=== PATIENT | female | born 1965 | race Caucasian/White ===

== ENCOUNTER 2017-11-11 10:30 | Outpatient (RCR) | payer OTHER, SELFPAY ==
--- NOTE | 2017-11-03 14:08 | PT.OIE ---
Current Diagnoses Pain in right shoulder (10/29/17) Past Medical History (Last Updated 10/23/17 @ 20:32 by Jo Ann Ross) Depression (Chronic ~2000) Osteoarthritis (Chronic ~2008) Fractures (Resolved ~1972) Shingles (Resolved ~2010) Past Surgical History (Last Updated 10/23/17 @ 20:32 by Jo Ann Ross) Anesthesia (Resolved) History of thumb surgery (Resolved ~07/2013) Provider Visit Care Team Role Provider Type LAUREN Moreno Attending Provider Advanced Beauty Culturist Apprentice Family Provider Primary Care Provider Specialty: Medical Address: [address] [place] [address], [facility] Email: Physical Therapy Initial Evaluation PT-OP-A Visit Information Start: 10/29/17 17:33 Freq: Status: Active Protocol: Document 10/29/17 17:34 EA (Rec: 10/29/17 17:36 EA [id number]) Out-Patient Physical Therapy Visit Information Visit Information Visit Type Initial Evaluation Visit Start Time 16:00 Visit Stop Time 16:45 Visit Number 1 PT-OP-B Current Condition Start: 10/29/17 17:33 Freq: Status: Active Protocol: Document 10/29/17 17:34 EA (Rec: 11/02/17 07:30 EA [id number]) Current Condition History of Current Condition Onset Date 3 year ago Current Complaints Difficulty with overhead and lifting due to R shoulder weakness History of Current Condition Present condition of right shoulder weakness started 3 years ago with no known reason ; no signifcant medical history recalled except with right neck pain which was treated with formal rehab years ago. Pt reports months ago which she noted difficulty with fitness exercises due to R shoulder weakness with pain ; states dull pain accompanied with tightness. No diagnositic imaging performed recently. Prior Treatments and Tests None at this time Future Testing and Treatments Planned NOne at this time Treatment Goals Patient/Caregiver Goals Patient want to be able to particiocipate in TRX and other free weight fitness exercises with out limitation. 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 Personal Factors Other Personal Factors That May Effect Chronicity of the condition Therapy/Recovery PT-OP-C Subjective Start: 10/29/17 17:33 Freq: Status: Active Protocol: Document 10/29/17 17:30 EA (Rec: 11/03/17 13:55 EA [id number]) OP-PT Subjective Patient Comments Patient Comments Pt c/o shoulder elevation difficulty due to weakness and diffuse pain rated 4/10 at post right shoulder; states unable to participate effectively with all fitnee resistance exercises. Patient Reported Progress Same Patient Questionnaires Quick Dash- Upper Extremity Quick Dash UE Score 34 Quick Dash UE Impairment 20 to 39% Impaired (Score 20- 39) PT-OP-E Functional Tests Start: 10/29/17 17:33 Freq: Status: Active Protocol: Document 10/29/17 08:34 EA (Rec: 11/02/17 08:24 EA [id number]) Functional Tests Apley's Scratch Test Action 1: The subject is instructed to touch the opposite shoulder with his/her hand. This motion checks Glenohumeral adduction, internal rotation , horizontal adduction and scapular protraction Action 2: The subject is instructed to place his/her arm overhead and reach behind the neck to touch his/her upper back. This motion checks Glenohumeral abduction, external rotation and scapular upward rotation and elevation. Action 3: The subject puts his/her hand on the lower back and reaches upward as far as possible. This motion checks glenohumeral adduction, internal rotation and scapular retraction with downward rotation Action 2- Left T1 Action 2- Right T3 Action 3- Left T8 Action 3- Right T1 PT-OP-F Manual Assessment Start: 10/29/17 17:33 Freq: Status: Active Protocol: Document 10/29/17 17:34 EA (Rec: 11/02/17 09:00 EA [id number]) Manual Assessments Soft Tissue Assessment Soft Tissue Mobility Assessment grade 2 tenderness gracie right upper and middle traps, scapular borders. Joint Mobility Assessment Joint Mobility Assessment crepitus noted. PT-OP-H Neuro Start: 10/29/17 17:33 Freq: Status: Active Protocol: Document 10/29/17 17:34 EA (Rec: 11/02/17 09:00 EA [id number]) Sensation Evaluation Gross Sensation Sensation Description Pain Dermatome Impairments C3 C4 Comments Summary Comments Possible with suprascapular nerve pain distibution and weakness. Deep Tendon Reflex & Clonus Assessment Deep Tendon Reflex Right Tricep Deep Tendon Reflex 2+ Normal PT-OP-J Posture/Palpation/Skin Start: 10/29/17 17:33 Freq: Status: Active Protocol: Document 10/29/17 17:34 EA (Rec: 11/02/17 09:00 EA [id number]) Posture Evaluation Position Standing Evaluation View Posterior Shoulder Posture (R) Forward Scapula Posture (R) Retracted PT-OP-K Range of Motion Start: 10/29/17 17:33 Freq: Status: Active Protocol: Document 10/29/17 17:34 EA (Rec: 11/02/17 10:22 EA [id number]) Cervical Spine Range of Motion Cervical Spine Active ROM Limitations Soft Tissue Tightness Comments Tightness to both traps, LS. Shoulder Goniometric Range of Motion Shoulder Measured in Degrees Right Active External Rotation at 90 degrees 85 Abduction Internal Rotation 65 Left Shoulder ROM WFL Yes PT-OP-L Special Tests Start: 10/29/17 17:33 Freq: Status: Active Protocol: Document 10/29/17 17:35 EA (Rec: 11/03/17 08:18 EA [id number]) Special Tests Cervical Spine Special Tests Upper Limb Tension Test Test Results negative Shoulder Depression Test Results negative Shoulder Special Tests AC Joint Compression Test Results negative Speed's Biceps Test Results negative Elevation Impingement Test Results negative Neer Impingement Test Results negative Empty Can Test Results negative Belly Press Test Results negative Vascular Special Tests Jose Maneuver Test Results negative Estephania Test Test Results negative Other Special Tests Special Tests Suprascapular nerve provocation: Positive PT-OP-M Strength Start: 10/29/17 17:33 Freq: Status: Active Protocol: Document 10/29/17 17:35 EA (Rec: 11/03/17 08:18 EA [id number]) Shoulder Strength Shoulder Manual Muscle Testing Left Flexion 5 Normal Extension 5 Normal Abduction (C5) 5 Normal Adduction 5 Normal External Rotation 5 Normal Internal Rotation 5 Normal Horizontal Abduction 5 Normal Horizontal Adduction 5 Normal Right Flexion 4- Good- Extension 5 Normal Abduction (C5) 4- Good- Adduction 5 Normal External Rotation 3+ Fair+ Internal Rotation 4 Good Horizontal Abduction 4- Good- Horizontal Adduction 5 Normal Elbow/Forearm Strength Elbow and Forearm Manual Muscle Testing Right Flexion (C6) 5 Normal Extension (C7) 5 Normal Pronation 5 Normal Supination 5 Normal PT-OP-Q Treatments Start: 10/29/17 17:33 Freq: Status: Active Protocol: Document 10/29/17 17:35 EA (Rec: 11/03/17 08:18 EA [id number]) Manual Therapy Treatment Soft Tissue Mobilization 1 Body Location Right scapular borders, R traps Mobilization Type Myofascial Release Strumming Sustained Pressure Trigger Point Release Intensity/Depth Moderate Body Position Prone PT-OP-R Modalities Start: 10/29/17 17:33 Freq: Status: Active Protocol: Document 10/29/17 17:35 EA (Rec: 11/03/17 08:18 EA [id number]) Electric Stimulation Electric Stimulation Interferential Current (IFC) Body Location SS/IS muscles Duration (Minutes) 15 Combined With Heat/Cold Hot Pack PT-OP-T Assessment and Plan Start: 10/29/17 17:33 Freq: Status: Active Protocol: Document 10/29/17 17:35 EA (Rec: 11/03/17 08:18 EA [id number]) Physical Therapy Assessment Rehab Potential Rehabilitation Potential Good Evaluation Complexity Number of Personal Factors/Comorbidities 1-2 Number of Body Systems Impaired 1-2 Clinical Presentation at Evaluation Evolving Impairments Impairments Pain Posture ROM Strength Other Concerns Barriers to Rehabilitation Chronicity of the condition Goals Four Impairment Quick Dash score of 36 Packing Machine Tender Goal (LTG) Patient will have Quick Dash Score of 16 LTG Duration 4 wks Two Impairment Decreased shoulder Abd/Flexion /ER MM strength Residential Goal (LTG) Pt will increase shoulder strength by 1/2 grade to improve shoulder functional elevation. LTG Duration 4 wks One Impairment Grade 2 tenderness over right scapular region and borders Residential Goal (LTG) Patient will exhibit no tenderness over right shoulder borders and regin to decrease pain during shoulder elevation. LTG Duration 4 wks Assessment Summary Assessment Pleasant 51 y/o F patient demonstrates difficulty with shoulder elevation due to weakness with minimal pain. Special tests reveals negative with rotator cuff tendinitis or injury; cervical neurological tests reveal no irritation to specific nerve. Suprascapular nerve provocation test reveals positive. In my professional opinion, patient may probably suffering from suprascapular nerve compression due to tenderness with tightness of supraspinatus and infraspinatus nerve. Due to the compression patient weakness is evident during shoulder mobility. Pt would benefit with skilled PT to address this issue. Physical Therapy Plan Frequency and Duration Frequency of Treatment 2x/Week Plan of Care Start Date 10/29/17 Plan of Care End Date 12/24/17 Therapeutic Interventions Therapeutic Interventions Home Exercise Program Manual Therapy Patient/Caregiver Education Self-Care/Home Management Soft Tissue Mobilization Therapeutic Exercises Modalities Cold Pack/Ice Massage Electric Stimulation Hot Packs Next Visit Focus/Plan Next Note Type Treatment Note Next Visit Plan 1. Decrease scapular tightness 2. Decrease scapular and traps tenderness 3. Increase strength 4. HEP
--- NOTE | 2017-11-03 14:08 | PT.OPPOC ---
Current Diagnoses Pain in right shoulder (10/29/17) Provider Visit Care Team Role Provider Type LAUREN Moreno Attending Provider Advanced Rotary Rig Engine Operator Family Provider Primary Care Provider Specialty: Medical Address: [address] [place] [address], [id number] Email: Plan Of Care PT-OP-T Assessment and Plan Start: 10/29/17 17:33 Freq: Status: Active Protocol: Document 10/29/17 17:35 EA (Rec: 11/03/17 08:18 EA [id number]) Physical Therapy Assessment Rehab Potential Rehabilitation Potential Good Evaluation Complexity Number of Personal Factors/Comorbidities 1-2 Number of Body Systems Impaired 1-2 Clinical Presentation at Evaluation Evolving Impairments Impairments Pain Posture ROM Strength Other Concerns Barriers to Rehabilitation Chronicity of the condition Goals Four Impairment Quick Dash score of 36 Machine Guide Base Winder Goal (LTG) Patient will have Quick Dash Score of 16 LTG Duration 4 wks Two Impairment Decreased shoulder Abd/Flexion /ER MM strength Custodial Goal (LTG) Pt will increase shoulder strength by 1/2 grade to improve shoulder functional elevation. LTG Duration 4 wks One Impairment Grade 2 tenderness over right scapular region and borders Machine Guide Base Winder Goal (LTG) Patient will exhibit no tenderness over right shoulder borders and regin to decrease pain during shoulder elevation. LTG Duration 4 wks Assessment Summary Assessment Pleasant 51 y/o F patient demonstrates difficulty with shoulder elevation due to weakness with minimal pain. Special tests reveals negative with rotator cuff tendinits or injury; cervical neurological tests reveal no irritation to specific nerve. Suprascapular nerve provocation test reveals positive. In my professional opinion, patient may probably suffering from suprascapular nerve compression due to tenderness with tightness of supraspinatus and infraspinatus nerve. Due to the compression patient weakness is evident during shoulder mobility. Pt would benefit with skilled PT to address this issue. Physical Therapy Plan Frequency and Duration Frequency of Treatment 2x/Week Plan of Care Start Date 10/29/17 Plan of Care End Date 12/24/17 Therapeutic Interventions Therapeutic Interventions Home Exercise Program Manual Therapy Patient/Caregiver Education Self-Care/Home Management Soft Tissue Mobilization Therapeutic Exercises Modalities Cold Pack/Ice Massage Electric Stimulation Hot Packs Next Visit Focus/Plan Next Note Type Treatment Note Next Visit Plan 1. Decrease scapular tightness 2. Decrease scapular and traps tenderness 3. Increase strength 4. HEP Plan of Care Dates Plan of Care Start Date 10/29/17 Plan of Care End Date 12/24/17 Please Sign and Return: I have reviewed this Plan of Care and certify that the skilled therapy services above are required to meet the patient?s needs. Physician Signature Date Printed Name and Credentials Clinical Instructor Signature Printed Name and Credentials
--- NOTE | 2017-11-03 17:14 | PT.OTN ---
Current Diagnoses Pain in right shoulder (11/03/17) Physical Therapy Treatment Note PT-OP-A Visit Information Start: 10/29/17 17:33 Freq: Status: Active Protocol: Document 11/03/17 17:04 EA (Rec: 11/03/17 17:13 EA [id number]) Out-Patient Physical Therapy Visit Information Visit Information Visit Type Treatment Note Visit Start Time 16:00 Visit Stop Time 16:53 Total Visit Minutes 53 Visit Number 2 PT-OP-B Current Condition Start: 10/29/17 17:33 Freq: Status: Active Protocol: Document 10/29/17 17:34 EA (Rec: 11/02/17 07:30 EA [id number]) Current Condition History of Current Condition Onset Date 3 year ago Current Complaints Difficulty with overhead and lifting due to R shoulder weakness History of Current Condition Present condition of right shoulder weakness started 3 years ago with no known reason ; no signifcant medical history recalled except with right neck pain which was treated with formal rehab years ago. Pt reports months ago which she noted difficulty with fitness exercises due to R shoulder weakness with pain ; states dull pain accompanied with tightness. No diagnositic imaging performed recently. Prior Treatments and Tests None at this time Future Testing and Treatments Planned NOne at this time Treatment Goals Patient/Caregiver Goals Patient want to be able to particiocipate in TRX and other free weight fitness exercises with out limitation. 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 Personal Factors Other Personal Factors That May Effect Chronicity of the condition Therapy/Recovery PT-OP-C Subjective Start: 10/29/17 17:33 Freq: Status: Active Protocol: Document 11/03/17 17:04 EA (Rec: 11/03/17 17:13 EA [id number]) OP-PT Subjective Patient Comments Patient Comments Patient reports right shoulder is quite sore today. PT-OP-E Functional Tests Start: 10/29/17 17:33 Freq: Status: Active Protocol: Document 10/29/17 08:34 EA (Rec: 11/02/17 08:24 EA [id number]) Functional Tests Apley's Scratch Test Action 1: The subject is instructed to touch the opposite shoulder with his/her hand. This motion checks Glenohumeral adduction, internal rotation , horizontal adduction and scapular protraction Action 2: The subject is instructed to place his/her arm overhead and reach behind the neck to touch his/her upper back. This motion checks Glenohumeral abduction, external rotation and scapular upward rotation and elevation. Action 3: The subject puts his/her hand on the lower back and reaches upward as far as possible. This motion checks glenohumeral adduction, internal rotation and scapular retraction with downward rotation Action 2- Left T1 Action 2- Right T3 Action 3- Left T8 Action 3- Right T1 PT-OP-F Manual Assessment Start: 10/29/17 17:33 Freq: Status: Active Protocol: Document 10/29/17 17:34 EA (Rec: 11/02/17 09:00 EA [id number]) Manual Assessments Soft Tissue Assessment Soft Tissue Mobility Assessment grade 2 tenderness gracie right upper and middle traps, scapular borders. Joint Mobility Assessment Joint Mobility Assessment crepitus noted. PT-OP-H Neuro Start: 10/29/17 17:33 Freq: Status: Active Protocol: Document 10/29/17 17:34 EA (Rec: 11/02/17 09:00 EA [id number]) Sensation Evaluation Gross Sensation Sensation Description Pain Dermatome Impairments C3 C4 Comments Summary Comments Possible with suprascapular nerve pain distibution and weakness. Deep Tendon Reflex & Clonus Assessment Deep Tendon Reflex Right Tricep Deep Tendon Reflex 2+ Normal PT-OP-J Posture/Palpation/Skin Start: 10/29/17 17:33 Freq: Status: Active Protocol: Document 10/29/17 17:34 EA (Rec: 11/02/17 09:00 EA [id number]) Posture Evaluation Position Standing Evaluation View Posterior Shoulder Posture (R) Forward Scapula Posture (R) Retracted PT-OP-K Range of Motion Start: 10/29/17 17:33 Freq: Status: Active Protocol: Document 10/29/17 17:34 EA (Rec: 11/02/17 10:22 EA [id number]) Cervical Spine Range of Motion Cervical Spine Active ROM Limitations Soft Tissue Tightness Comments Tightness to both traps, LS. Shoulder Goniometric Range of Motion Shoulder Measured in Degrees Right Active External Rotation at 90 degrees 85 Abduction Internal Rotation 65 Left Shoulder ROM WFL Yes PT-OP-L Special Tests Start: 10/29/17 17:33 Freq: Status: Active Protocol: Document 10/29/17 17:35 EA (Rec: 11/03/17 08:18 EA [id number]) Special Tests Cervical Spine Special Tests Upper Limb Tension Test Test Results negative Shoulder Depression Test Results negative Shoulder Special Tests AC Joint Compression Test Results negative Speed's Biceps Test Results negative Elevation Impingement Test Results negative Neer Impingement Test Results negative Empty Can Test Results negative Belly Press Test Results negative Vascular Special Tests [place] [employer] Maneuver Test Results negative Estephania Test Test Results negative Other Special Tests Special Tests Suprascapular nerve provocation: Positive PT-OP-M Strength Start: 10/29/17 17:33 Freq: Status: Active Protocol: Document 10/29/17 17:35 EA (Rec: 11/03/17 08:18 EA [id number]) Shoulder Strength Shoulder Manual Muscle Testing Left Flexion 5 Normal Extension 5 Normal Abduction (C5) 5 Normal Adduction 5 Normal External Rotation 5 Normal Internal Rotation 5 Normal Horizontal Abduction 5 Normal Horizontal Adduction 5 Normal Right Flexion 4- Good- Extension 5 Normal Abduction (C5) 4- Good- Adduction 5 Normal External Rotation 3+ Fair+ Internal Rotation 4 Good Horizontal Abduction 4- Good- Horizontal Adduction 5 Normal Elbow/Forearm Strength Elbow and Forearm Manual Muscle Testing Right Flexion (C6) 5 Normal Extension (C7) 5 Normal Pronation 5 Normal Supination 5 Normal PT-OP-Q Treatments Start: 10/29/17 17:33 Freq: Status: Active Protocol: Document 11/03/17 17:04 EA (Rec: 11/03/17 17:13 EA [id number]) Manual Therapy Treatment Soft Tissue Mobilization 1 Body Location Right SS/IF ms and tendon Mobilization Type Cross-Friction Myofascial Release Sustained Pressure Intensity/Depth Moderate Comments prone and supine PT-OP-R Modalities Start: 10/29/17 17:33 Freq: Status: Active Protocol: Document 11/03/17 17:04 EA (Rec: 11/03/17 17:13 EA [id number]) Electric Stimulation Electric Stimulation Interferential Current (IFC) Body Location right SS/IF/lat deltoid Duration (Minutes) 15 Combined With Heat/Cold Hot Pack Hot Pack/Cold Pack Treatment Hot Pack Location ant and post right shoulder Patient Position Supine Patient Tolerance Good Ultrasound Therapy Treatment Right Anterior Shoulder Treatment Duration (minutes) 8 Coupling Medium Ultrasound Gel Applicator Size (cm2) 5 Mode Setting Continuous Comments US to right supraspinatus/ infra spinatus muscle and tendon: prone and supine PT-OP-T Assessment and Plan Start: 10/29/17 17:33 Freq: Status: Active Protocol: Document 11/03/17 17:04 EA (Rec: 11/03/17 17:13 EA [id number]) Physical Therapy Assessment Assessment Summary Assessment Patient is exhibiting SS/IF tendinitis at this time which can be add up from the previous diagnosis of suprascapular nerve impingment . Physical Therapy Plan Next Visit Focus/Plan Next Note Type Treatment Note Next Visit Plan Cont with current plan. To begin shoulder exercises next meeting.
--- NOTE | 2017-11-06 11:12 | PT.OTN ---
Current Diagnoses Pain in right shoulder (11/06/17) Physical Therapy Treatment Note PT-OP-A Visit Information Start: 10/29/17 17:33 Freq: Status: Active Protocol: Document 11/06/17 10:30 DCW (Rec: 11/06/17 11:12 DCW [id number]) Out-Patient Physical Therapy Visit Information Visit Information Visit Type Treatment Note Visit Start Time 10:30 Visit Stop Time 11:25 Total Visit Minutes 55 Visit Number 3 Number of CHIEF LOAD DISPATCHER Visits 0 Evaluation Information Evaluation Date 10/29/17 PT-OP-B Current Condition Start: 10/29/17 17:33 Freq: Status: Active Protocol: Document 10/29/17 17:34 EA (Rec: 11/02/17 07:30 EA [id number]) Current Condition History of Current Condition Onset Date 3 year ago Current Complaints Difficulty with overhead and lifting due to R shoulder weakness History of Current Condition Present condition of right shoulder weakness started 3 years ago with no known reason ; no signifcant medical history recalled except with right neck pain which was treated with formal rehab years ago. Pt reports months ago which she noted difficulty with fitness exercises due to R shoulder weakness with pain ; states dull pain accompanied with tightness. No diagnositic imaging performed recently. Prior Treatments and Tests None at this time Future Testing and Treatments Planned NOne at this time Treatment Goals Patient/Caregiver Goals Patient want to be able to particiocipate in TRX and other free weight fitness exercises with out limitation. 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 Personal Factors Other Personal Factors That May Effect Chronicity of the condition Therapy/Recovery PT-OP-C Subjective Start: 10/29/17 17:33 Freq: Status: Active Protocol: Document 11/06/17 10:30 DCW (Rec: 11/06/17 11:12 DCW [id number]) OP-PT Subjective Patient Comments Patient Comments Pt reports she is a little sore today after going to the gym yesterday, alhough she didn't do any arm workouts. PT-OP-E Functional Tests Start: 10/29/17 17:33 Freq: Status: Active Protocol: Document 10/29/17 08:34 EA (Rec: 11/02/17 08:24 EA [id number]) Functional Tests Apley's Scratch Test Action 1: The subject is instructed to touch the opposite shoulder with his/her hand. This motion checks Glenohumeral adduction, internal rotation , horizontal adduction and scapular protraction Action 2: The subject is instructed to place his/her arm overhead and reach behind the neck to touch his/her upper back. This motion checks Glenohumeral abduction, external rotation and scapular upward rotation and elevation. Action 3: The subject puts his/her hand on the lower back and reaches upward as far as possible. This motion checks glenohumeral adduction, internal rotation and scapular retraction with downward rotation Action 2- Left T1 Action 2- Right T3 Action 3- Left T8 Action 3- Right T1 PT-OP-F Manual Assessment Start: 10/29/17 17:33 Freq: Status: Active Protocol: Document 10/29/17 17:34 EA (Rec: 11/02/17 09:00 EA [id number]) Manual Assessments Soft Tissue Assessment Soft Tissue Mobility Assessment grade 2 tenderness gracie right upper and middle traps, scapular borders. Joint Mobility Assessment Joint Mobility Assessment crepitus noted. PT-OP-H Neuro Start: 10/29/17 17:33 Freq: Status: Active Protocol: Document 10/29/17 17:34 EA (Rec: 11/02/17 09:00 EA [id number]) Sensation Evaluation Gross Sensation Sensation Description Pain Dermatome Impairments C3 C4 Comments Summary Comments Possible with suprascapular nerve pain distibution and weakness. Deep Tendon Reflex & Clonus Assessment Deep Tendon Reflex Right Tricep Deep Tendon Reflex 2+ Normal PT-OP-J Posture/Palpation/Skin Start: 10/29/17 17:33 Freq: Status: Active Protocol: Document 10/29/17 17:34 EA (Rec: 11/02/17 09:00 EA [id number]) Posture Evaluation Position Standing Evaluation View Posterior Shoulder Posture (R) Forward Scapula Posture (R) Retracted PT-OP-K Range of Motion Start: 10/29/17 17:33 Freq: Status: Active Protocol: Document 10/29/17 17:34 EA (Rec: 11/02/17 10:22 EA [id number]) Cervical Spine Range of Motion Cervical Spine Active ROM Limitations Soft Tissue Tightness Comments Tightness to both traps, LS. Shoulder Goniometric Range of Motion Shoulder Measured in Degrees Right Active External Rotation at 90 degrees 85 Abduction Internal Rotation 65 Left Shoulder ROM WFL Yes PT-OP-L Special Tests Start: 10/29/17 17:33 Freq: Status: Active Protocol: Document 10/29/17 17:35 EA (Rec: 11/03/17 08:18 EA [id number]) Special Tests Cervical Spine Special Tests Upper Limb Tension Test Test Results negative Shoulder Depression Test Results negative Shoulder Special Tests AC Joint Compression Test Results negative Speed's Biceps Test Results negative Elevation Impingement Test Results negative Neer Impingement Test Results negative Empty Can Test Results negative Belly Press Test Results negative Vascular Special Tests [place] Maneuver Test Results negative Estephania Test Test Results negative Other Special Tests Special Tests Suprascapular nerve provocation: Positive PT-OP-M Strength Start: 10/29/17 17:33 Freq: Status: Active Protocol: Document 10/29/17 17:35 EA (Rec: 11/03/17 08:18 EA [id number]) Shoulder Strength Shoulder Manual Muscle Testing Left Flexion 5 Normal Extension 5 Normal Abduction (C5) 5 Normal Adduction 5 Normal External Rotation 5 Normal Internal Rotation 5 Normal Horizontal Abduction 5 Normal Horizontal Adduction 5 Normal Right Flexion 4- Good- Extension 5 Normal Abduction (C5) 4- Good- Adduction 5 Normal External Rotation 3+ Fair+ Internal Rotation 4 Good Horizontal Abduction 4- Good- Horizontal Adduction 5 Normal Elbow/Forearm Strength Elbow and Forearm Manual Muscle Testing Right Flexion (C6) 5 Normal Extension (C7) 5 Normal Pronation 5 Normal Supination 5 Normal PT-OP-Q Treatments Start: 10/29/17 17:33 Freq: Status: Active Protocol: Document 11/06/17 10:30 DCW (Rec: 11/06/17 11:12 DCW [id number]) Cardio Equipment Upper Body Ergometer (UBE) Duration (Minutes) 5 RPM 60 Seat Position 8 Height 4 Therapeutic Exercises Supine Exercises 2 Supine Exercise Name Shoulder flexion Side bilateral Resistance 5# Equipment Used wand 1 Supine Exercise Name Serratus punch Side bilateral Resistance 5# Equipment Used wand Manual Therapy Treatment Soft Tissue Mobilization 2 Body Location Upper Trap Mobilization Type Strain/Counterstrain Sustained Pressure Body Position Supine 1 Body Location Right SS/IF ms and tendon Mobilization Type Cross-Friction Myofascial Release Sustained Pressure Intensity/Depth Moderate Body Position Supine Joint Mobilizations 1 Joint GH Direction inferior glide Grade III Body Position Supine PT-OP-R Modalities Start: 10/29/17 17:33 Freq: Status: Active Protocol: Document 11/06/17 10:30 DCW (Rec: 11/06/17 11:12 DCW [id number]) Ultrasound Therapy Treatment Right Anterior Shoulder Treatment Duration (minutes) 8 Coupling Medium Ultrasound Gel Applicator Size (cm2) 5 Mode Setting Continuous Comments US to right supraspinatus/ infra spinatus muscle and tendon: prone and supine PT-OP-T Assessment and Plan Start: 10/29/17 17:33 Freq: Status: Active Protocol: Document 11/06/17 10:30 DCW (Rec: 11/06/17 11:12 DCW [id number]) Physical Therapy Assessment Impairments Impairments Pain Posture ROM Strength Goals Four Impairment Quick Dash score of 36 Senior Living Goal (LTG) Patient will have Quick Dash Score of 16 LTG Duration 4 wks Two Impairment Decreased shoulder Abd/Flexion /ER MM strength Neonatologist Goal (LTG) Pt will increase shoulder strength by 1/2 grade to improve shoulder functional elevation. LTG Duration 4 wks One Impairment Grade 2 tenderness over right scapular region and borders Neonatologist Goal (LTG) Patient will exhibit no tenderness over right shoulder borders and regin to decrease pain during shoulder elevation. LTG Duration 4 wks Assessment Summary Assessment Pt tolerated addition of TherEx well, although reported sheprobably won't be able to use my arms tomorrow. Physical Therapy Plan Frequency and Duration Frequency of Treatment 2x/Week Plan of Care Start Date 10/29/17 Plan of Care End Date 12/24/17 Therapeutic Interventions Therapeutic Interventions Home Exercise Program Manual Therapy Patient/Caregiver Education Self-Care/Home Management Soft Tissue Mobilization Therapeutic Exercises Modalities Cold Pack/Ice Massage Electric Stimulation Hot Packs Next Visit Focus/Plan Next Note Type Treatment Note Next Visit Plan Continue current POC
--- NOTE | 2017-11-09 11:29 | PT.OTN ---
Current Diagnoses Pain in right shoulder (11/09/17) Physical Therapy Treatment Note PT-OP-A Visit Information Start: 10/29/17 17:33 Freq: Status: Active Protocol: Document 11/09/17 09:47 [facility] (Rec: 11/09/17 11:29 [facility] [id number]) Out-Patient Physical Therapy Visit Information Visit Information Visit Type Treatment Note Visit Start Time 09:45 Visit Stop Time 10:40 Total Visit Minutes 55 Visit Number 4 Number of GOLF COURSE ASSISTANT Visits 0 PT-OP-B Current Condition Start: 10/29/17 17:33 Freq: Status: Active Protocol: Document 10/29/17 17:34 EA (Rec: 11/02/17 07:30 EA [id number]) Current Condition History of Current Condition Onset Date 3 year ago Current Complaints Difficulty with overhead and lifting due to R shoulder weakness History of Current Condition Present condition of right shoulder weakness started 3 years ago with no known reason ; no signifcant medical history recalled except with right neck pain which was treated with formal rehab years ago. Pt reports months ago which she noted difficulty with fitness exercises due to R shoulder weakness with pain ; states dull pain accompanied with tightness. No diagnositic imaging performed recently. Prior Treatments and Tests None at this time Future Testing and Treatments Planned NOne at this time Treatment Goals Patient/Caregiver Goals Patient want to be able to particiocipate in TRX and other free weight fitness exercises with out limitation. 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 Personal Factors Other Personal Factors That May Effect Chronicity of the condition Therapy/Recovery PT-OP-C Subjective Start: 10/29/17 17:33 Freq: Status: Active Protocol: Document 11/09/17 09:47 [facility] (Rec: 11/09/17 11:29 [facility] [id number]) OP-PT Subjective Patient Comments Patient Comments Pain is still there, not as bad. Has been icing 3x/day. Went to gym thursday but just did lower body not UE exercises. Improved ROM behind back. PT-OP-E Functional Tests Start: 10/29/17 17:33 Freq: Status: Active Protocol: Document 10/29/17 08:34 EA (Rec: 11/02/17 08:24 EA [id number]) Functional Tests Apley's Scratch Test Action 1: The subject is instructed to touch the opposite shoulder with his/her hand. This motion checks Glenohumeral adduction, internal rotation , horizontal adduction and scapular protraction Action 2: The subject is instructed to place his/her arm overhead and reach behind the neck to touch his/her upper back. This motion checks Glenohumeral abduction, external rotation and scapular upward rotation and elevation. Action 3: The subject puts his/her hand on the lower back and reaches upward as far as possible. This motion checks glenohumeral adduction, internal rotation and scapular retraction with downward rotation Action 2- Left T1 Action 2- Right T3 Action 3- Left T8 Action 3- Right T1 PT-OP-F Manual Assessment Start: 10/29/17 17:33 Freq: Status: Active Protocol: Document 10/29/17 17:34 EA (Rec: 11/02/17 09:00 EA [id number]) Manual Assessments Soft Tissue Assessment Soft Tissue Mobility Assessment grade 2 tenderness gracie right upper and middle traps, scapular borders. Joint Mobility Assessment Joint Mobility Assessment crepitus noted. PT-OP-H Neuro Start: 10/29/17 17:33 Freq: Status: Active Protocol: Document 10/29/17 17:34 EA (Rec: 11/02/17 09:00 EA [id number]) Sensation Evaluation Gross Sensation Sensation Description Pain Dermatome Impairments C3 C4 Comments Summary Comments Possible with suprascapular nerve pain distibution and weakness. Deep Tendon Reflex & Clonus Assessment Deep Tendon Reflex Right Tricep Deep Tendon Reflex 2+ Normal PT-OP-J Posture/Palpation/Skin Start: 10/29/17 17:33 Freq: Status: Active Protocol: Document 10/29/17 17:34 EA (Rec: 11/02/17 09:00 EA [id number]) Posture Evaluation Position Standing Evaluation View Posterior Shoulder Posture (R) Forward Scapula Posture (R) Retracted PT-OP-K Range of Motion Start: 10/29/17 17:33 Freq: Status: Active Protocol: Document 10/29/17 17:34 EA (Rec: 11/02/17 10:22 EA [id number]) Cervical Spine Range of Motion Cervical Spine Active ROM Limitations Soft Tissue Tightness Comments Tightness to both traps, LS. Shoulder Goniometric Range of Motion Shoulder Measured in Degrees Right Active External Rotation at 90 degrees 85 Abduction Internal Rotation 65 Left Shoulder ROM WFL Yes PT-OP-L Special Tests Start: 10/29/17 17:33 Freq: Status: Active Protocol: Document 10/29/17 17:35 EA (Rec: 11/03/17 08:18 EA [id number]) Special Tests Cervical Spine Special Tests Upper Limb Tension Test Test Results negative Shoulder Depression Test Results negative Shoulder Special Tests AC Joint Compression Test Results negative Speed's Biceps Test Results negative Elevation Impingement Test Results negative Neer Impingement Test Results negative Empty Can Test Results negative Belly Press Test Results negative Vascular Special Tests Jose Maneuver Test Results negative Estephania Test Test Results negative Other Special Tests Special Tests Suprascapular nerve provocation: Positive PT-OP-M Strength Start: 10/29/17 17:33 Freq: Status: Active Protocol: Document 10/29/17 17:35 EA (Rec: 11/03/17 08:18 EA [id number]) Shoulder Strength Shoulder Manual Muscle Testing Left Flexion 5 Normal Extension 5 Normal Abduction (C5) 5 Normal Adduction 5 Normal External Rotation 5 Normal Internal Rotation 5 Normal Horizontal Abduction 5 Normal Horizontal Adduction 5 Normal Right Flexion 4- Good- Extension 5 Normal Abduction (C5) 4- Good- Adduction 5 Normal External Rotation 3+ Fair+ Internal Rotation 4 Good Horizontal Abduction 4- Good- Horizontal Adduction 5 Normal Elbow/Forearm Strength Elbow and Forearm Manual Muscle Testing Right Flexion (C6) 5 Normal Extension (C7) 5 Normal Pronation 5 Normal Supination 5 Normal PT-OP-Q Treatments Start: 10/29/17 17:33 Freq: Status: Active Protocol: Document 11/09/17 09:47 [facility] (Rec: 11/09/17 11:29 [facility] [id number]) Cardio Equipment Upper Body Ergometer (UBE) Duration (Minutes) 5 RPM 60 Seat Position 8 Height 4 Therapeutic Exercises Standing Exercises 5 Standing Exercise Name wall posture w/ 90/90 ER Reps/Minutes 10 4 Standing Exercise Name IR Equipment Used L1 Reps/Minutes 15 3 Standing Exercise Name flex w/ retraction Equipment Used L1 Reps/Minutes 10 Comments only to level where UT engages 2 Standing Exercise Name B ext Equipment Used L1 Reps/Minutes 20 1 Standing Exercise Name B ER Equipment Used L1 Reps/Minutes 20 Manual Therapy Treatment Soft Tissue Mobilization 2 Body Location Upper Trap Mobilization Type Sustained Pressure Body Position Supine Joint Mobilizations 1 Joint GH Direction post Grade III Body Position Supine PT-OP-R Modalities Start: 10/29/17 17:33 Freq: Status: Active Protocol: Document 11/09/17 09:47 [facility] (Rec: 11/09/17 11:29 [facility] [id number]) Electric Stimulation Electric Stimulation Interferential Current (IFC) Body Location right SS/IF/lat deltoid Duration (Minutes) 10 Combined With Heat/Cold Hot Pack Ultrasound Therapy Treatment Right Anterior Shoulder Treatment Duration (minutes) 8 Coupling Medium Ultrasound Gel Applicator Size (cm2) 5 Mode Setting Continuous Comments US to right supraspinatus/ infra spinatus muscle and tendon: prone and supine PT-OP-T Assessment and Plan Start: 10/29/17 17:33 Freq: Status: Active Protocol: Document 11/09/17 09:47 [facility] (Rec: 11/09/17 11:29 [facility] [id number]) Physical Therapy Assessment Goals Four Impairment Quick Dash score of 36 Fpc Goal (LTG) Patient will have Quick Dash Score of 16 LTG Duration 4 wks Two Impairment Decreased shoulder Abd/Flexion /ER MM strength Fpc Goal (LTG) Pt will increase shoulder strength by 1/2 grade to improve shoulder functional elevation. LTG Duration 4 wks One Impairment Grade 2 tenderness over right scapular region and borders Screedman Goal (LTG) Patient will exhibit no tenderness over right shoulder borders and regin to decrease pain during shoulder elevation. LTG Duration 4 wks Assessment Summary Assessment Able to tolerate ther ex but required significant cueing for maintaining TL posture, cervical & scapular positioning. Physical Therapy Plan Frequency and Duration Frequency of Treatment 2x/Week Plan of Care Start Date 10/29/17 Plan of Care End Date 12/24/17 Next Visit Focus/Plan Next Note Type Treatment Note Next Visit Plan Cont to advance UE strength
--- NOTE | 2017-11-11 13:23 | PT.OTN ---
Current Diagnoses Pain in right shoulder (11/11/17) Physical Therapy Treatment Note PT-OP-A Visit Information Start: 10/29/17 17:33 Freq: Status: Active Protocol: Document 11/11/17 10:33 EA (Rec: 11/11/17 11:17 EA [id number]) Out-Patient Physical Therapy Visit Information Visit Information Visit Type Treatment Note Visit Start Time 10:30 Visit Stop Time 11:20 Total Visit Minutes 50 Visit Number 5 Number of PORTABLE SAWYER Visits 0 PT-OP-B Current Condition Start: 10/29/17 17:33 Freq: Status: Active Protocol: Document 10/29/17 17:34 EA (Rec: 11/02/17 07:30 EA [id number]) Current Condition History of Current Condition Onset Date 3 year ago Current Complaints Difficulty with overhead and lifting due to R shoulder weakness History of Current Condition Present condition of right shoulder weakness started 3 years ago with no known reason ; no signifcant medical history recalled except with right neck pain which was treated with formal rehab years ago. Pt reports months ago which she noted difficulty with fitness exercises due to R shoulder weakness with pain ; states dull pain accompanied with tightness. No diagnositic imaging performed recently. Prior Treatments and Tests None at this time Future Testing and Treatments Planned NOne at this time Treatment Goals Patient/Caregiver Goals Patient want to be able to particiocipate in TRX and other free weight fitness exercises with out limitation. 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 Personal Factors Other Personal Factors That May Effect Chronicity of the condition Therapy/Recovery PT-OP-C Subjective Start: 10/29/17 17:33 Freq: Status: Active Protocol: Document 11/11/17 10:33 EA (Rec: 11/11/17 11:17 EA [id number]) OP-PT Subjective Patient Comments Patient Comments Patient reports pain is not much but weakness still evident; reports arm beyond shoulder level increases cranking sounds and feels unstable. PT-OP-E Functional Tests Start: 10/29/17 17:33 Freq: Status: Active Protocol: Document 10/29/17 08:34 EA (Rec: 11/02/17 08:24 EA [id number]) Functional Tests Apley's Scratch Test Action 1: The subject is instructed to touch the opposite shoulder with his/her hand. This motion checks Glenohumeral adduction, internal rotation , horizontal adduction and scapular protraction Action 2: The subject is instructed to place his/her arm overhead and reach behind the neck to touch his/her upper back. This motion checks Glenohumeral abduction, external rotation and scapular upward rotation and elevation. Action 3: The subject puts his/her hand on the lower back and reaches upward as far as possible. This motion checks glenohumeral adduction, internal rotation and scapular retraction with downward rotation Action 2- Left T1 Action 2- Right T3 Action 3- Left T8 Action 3- Right T1 PT-OP-F Manual Assessment Start: 10/29/17 17:33 Freq: Status: Active Protocol: Document 10/29/17 17:34 EA (Rec: 11/02/17 09:00 EA [id number]) Manual Assessments Soft Tissue Assessment Soft Tissue Mobility Assessment grade 2 tenderness gracie right upper and middle traps, scapular borders. Joint Mobility Assessment Joint Mobility Assessment crepitus noted. PT-OP-H Neuro Start: 10/29/17 17:33 Freq: Status: Active Protocol: Document 10/29/17 17:34 EA (Rec: 11/02/17 09:00 EA [id number]) Sensation Evaluation Gross Sensation Sensation Description Pain Dermatome Impairments C3 C4 Comments Summary Comments Possible with suprascapular nerve pain distibution and weakness. Deep Tendon Reflex & Clonus Assessment Deep Tendon Reflex Right Tricep Deep Tendon Reflex 2+ Normal PT-OP-J Posture/Palpation/Skin Start: 10/29/17 17:33 Freq: Status: Active Protocol: Document 10/29/17 17:34 EA (Rec: 11/02/17 09:00 EA [id number]) Posture Evaluation Position Standing Evaluation View Posterior Shoulder Posture (R) Forward Scapula Posture (R) Retracted PT-OP-K Range of Motion Start: 10/29/17 17:33 Freq: Status: Active Protocol: Document 10/29/17 17:34 EA (Rec: 11/02/17 10:22 EA [id number]) Cervical Spine Range of Motion Cervical Spine Active ROM Limitations Soft Tissue Tightness Comments Tightness to both traps, LS. Shoulder Goniometric Range of Motion Shoulder Measured in Degrees Right Active External Rotation at 90 degrees 85 Abduction Internal Rotation 65 Left Shoulder ROM WFL Yes PT-OP-L Special Tests Start: 10/29/17 17:33 Freq: Status: Active Protocol: Document 10/29/17 17:35 EA (Rec: 11/03/17 08:18 EA [id number]) Special Tests Cervical Spine Special Tests Upper Limb Tension Test Test Results negative Shoulder Depression Test Results negative Shoulder Special Tests AC Joint Compression Test Results negative Speed's Biceps Test Results negative Elevation Impingement Test Results negative Neer Impingement Test Results negative Empty Can Test Results negative Belly Press Test Results negative Vascular Special Tests [place] Maneuver Test Results negative Estephania Test Test Results negative Other Special Tests Special Tests Suprascapular nerve provocation: Positive PT-OP-M Strength Start: 10/29/17 17:33 Freq: Status: Active Protocol: Document 10/29/17 17:35 EA (Rec: 11/03/17 08:18 EA [id number]) Shoulder Strength Shoulder Manual Muscle Testing Left Flexion 5 Normal Extension 5 Normal Abduction (C5) 5 Normal Adduction 5 Normal External Rotation 5 Normal Internal Rotation 5 Normal Horizontal Abduction 5 Normal Horizontal Adduction 5 Normal Right Flexion 4- Good- Extension 5 Normal Abduction (C5) 4- Good- Adduction 5 Normal External Rotation 3+ Fair+ Internal Rotation 4 Good Horizontal Abduction 4- Good- Horizontal Adduction 5 Normal Elbow/Forearm Strength Elbow and Forearm Manual Muscle Testing Right Flexion (C6) 5 Normal Extension (C7) 5 Normal Pronation 5 Normal Supination 5 Normal PT-OP-Q Treatments Start: 10/29/17 17:33 Freq: Status: Active Protocol: Document 11/11/17 10:33 EA (Rec: 11/11/17 11:17 EA [id number]) Cardio Equipment Upper Body Ergometer (UBE) Duration (Minutes) 5 RPM 60 Seat Position 8 Height 6 Therapeutic Exercises Supine Exercises 2 Supine Exercise Name Shoulder flexion Side bilateral Resistance 5# Equipment Used wand Comments Clunk sound appear at 110 deg Prone Exercises 1 Prone Exercise Name t-Ball prone shoulder HORI ABD , flexion Resistance 1-2 lbs Reps/Minutes 12-15reps x 2 Standing Exercises 4 Standing Exercise Name IR Equipment Used L1 Reps/Minutes 15 3 Standing Exercise Name flex w/ retraction Equipment Used L1 Reps/Minutes 10 Comments only to level where UT engages 2 Standing Exercise Name B ext Equipment Used L1 Reps/Minutes 20 1 Standing Exercise Name B ER Equipment Used L1 Reps/Minutes 20 Manual Therapy Treatment Soft Tissue Mobilization 1 Body Location Right SS/IF ms and tendon Mobilization Type Cross-Friction Myofascial Release Sustained Pressure Intensity/Depth Moderate Body Position Supine PT-OP-R Modalities Start: 10/29/17 17:33 Freq: Status: Active Protocol: Document 11/11/17 10:33 EA (Rec: 11/11/17 11:17 EA [id number]) Electric Stimulation Electric Stimulation Interferential Current (IFC) Body Location right SS/IF/lat deltoid Duration (Minutes) 10 Combined With Heat/Cold Hot Pack PT-OP-T Assessment and Plan Start: 10/29/17 17:33 Freq: Status: Active Protocol: Document 11/11/17 10:33 EA (Rec: 11/11/17 11:17 EA [id number]) Physical Therapy Assessment Assessment Summary Assessment tolerated treatment; quick special test for labrum performed and reveals possible with labral tear. Patient may cont to benefit with strengthening exercises, however, further diagnostic procedure is required at this time to further improve care. Physical Therapy Plan Other Referrals/Consults Referrals/Consults Recommended Physician recheck or to request MRI. Hold Physical Therapy Reason For Hold Possible shoulder labral tear on right ; request for an MRI. Next Visit Focus/Plan Next Visit Plan RE-ASSESS SHOULDER
--- NOTE | 2018-03-25 10:20 | PT.OPDS ---
Current Diagnoses Pain in right shoulder (11/11/17) Provider Visit Care Team Role Provider Type LAUREN Moreno Attending Provider Advanced Design Intern Family Provider Primary Care Provider Specialty: Medical Address: [address] [place] [address], [facility] Email: Visit Number Visit Number 5 Discharge Summary PT-OP-B Current Condition Start: 10/29/17 17:33 Freq: Status: Active Protocol: Document 10/29/17 17:34 EA (Rec: 11/02/17 07:30 EA [id number]) Current Condition History of Current Condition Onset Date 3 year ago Current Complaints Difficulty with overhead and lifting due to R shoulder weakness History of Current Condition Present condition of right shoulder weakness started 3 years ago with no known reason ; no signifcant medical history recalled except with right neck pain which was treated with formal rehab years ago. Pt reports months ago which she noted difficulty with fitness exercises due to R shoulder weakness with pain ; states dull pain accompanied with tightness. No diagnositic imaging performed recently. Prior Treatments and Tests None at this time Future Testing and Treatments Planned NOne at this time Treatment Goals Patient/Caregiver Goals Patient want to be able to particiocipate in TRX and other free weight fitness exercises with out limitation. 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 Personal Factors Other Personal Factors That May Effect Chronicity of the condition Therapy/Recovery PT-OP-C Subjective Start: 10/29/17 17:33 Freq: Status: Active Protocol: Document 03/25/18 10:17 EA (Rec: 03/25/18 10:20 EA [id number]) OP-PT Subjective Patient Comments Patient Comments By phone conversation at todays date, patient reports that she would be seeing investigative writer next month for evaluation of right shoulder due to arthroscopic surgery performed on January 2018. PT-OP-E Functional Tests Start: 10/29/17 17:33 Freq: Status: Active Protocol: Document 10/29/17 08:34 EA (Rec: 11/02/17 08:24 EA [id number]) Functional Tests Apley's Scratch Test Action 1: The subject is instructed to touch the opposite shoulder with his/her hand. This motion checks Glenohumeral adduction, internal rotation , horizontal adduction and scapular protraction Action 2: The subject is instructed to place his/her arm overhead and reach behind the neck to touch his/her upper back. This motion checks Glenohumeral abduction, external rotation and scapular upward rotation and elevation. Action 3: The subject puts his/her hand on the lower back and reaches upward as far as possible. This motion checks glenohumeral adduction, internal rotation and scapular retraction with downward rotation Action 2- Left T1 Action 2- Right T3 Action 3- Left T8 Action 3- Right T1 PT-OP-F Manual Assessment Start: 10/29/17 17:33 Freq: Status: Active Protocol: Document 10/29/17 17:34 EA (Rec: 11/02/17 09:00 EA [id number]) Manual Assessments Soft Tissue Assessment Soft Tissue Mobility Assessment grade 2 tenderness gracie right upper and middle traps, scapular borders. Joint Mobility Assessment Joint Mobility Assessment crepitus noted. PT-OP-H Neuro Start: 10/29/17 17:33 Freq: Status: Active Protocol: Document 10/29/17 17:34 EA (Rec: 11/02/17 09:00 EA [id number]) Sensation Evaluation Gross Sensation Sensation Description Pain Dermatome Impairments C3 C4 Comments Summary Comments Possible with suprascapular nerve pain distibution and weakness. Deep Tendon Reflex & Clonus Assessment Deep Tendon Reflex Right Tricep Deep Tendon Reflex 2+ Normal PT-OP-J Posture/Palpation/Skin Start: 10/29/17 17:33 Freq: Status: Active Protocol: Document 10/29/17 17:34 EA (Rec: 11/02/17 09:00 EA [id number]) Posture Evaluation Position Standing Evaluation View Posterior Shoulder Posture (R) Forward Scapula Posture (R) Retracted PT-OP-K Range of Motion Start: 10/29/17 17:33 Freq: Status: Active Protocol: Document 10/29/17 17:34 EA (Rec: 11/02/17 10:22 EA [id number]) Cervical Spine Range of Motion Cervical Spine Active ROM Limitations Soft Tissue Tightness Comments Tightness to both traps, LS. Shoulder Goniometric Range of Motion Shoulder Measured in Degrees Right Active External Rotation at 90 degrees 85 Abduction Internal Rotation 65 Left Shoulder ROM WFL Yes PT-OP-L Special Tests Start: 10/29/17 17:33 Freq: Status: Active Protocol: Document 10/29/17 17:35 EA (Rec: 11/03/17 08:18 EA [id number]) Special Tests Cervical Spine Special Tests Upper Limb Tension Test Test Results negative Shoulder Depression Test Results negative Shoulder Special Tests AC Joint Compression Test Results negative Speed's Biceps Test Results negative Elevation Impingement Test Results negative Neer Impingement Test Results negative Empty Can Test Results negative Belly Press Test Results negative Vascular Special Tests [place] Maneuver Test Results negative Estephania Test Test Results negative Other Special Tests Special Tests Suprascapular nerve provocation: Positive PT-OP-M Strength Start: 10/29/17 17:33 Freq: Status: Active Protocol: Document 10/29/17 17:35 EA (Rec: 11/03/17 08:18 EA [id number]) Shoulder Strength Shoulder Manual Muscle Testing Left Flexion 5 Normal Extension 5 Normal Abduction (C5) 5 Normal Adduction 5 Normal External Rotation 5 Normal Internal Rotation 5 Normal Horizontal Abduction 5 Normal Horizontal Adduction 5 Normal Right Flexion 4- Good- Extension 5 Normal Abduction (C5) 4- Good- Adduction 5 Normal External Rotation 3+ Fair+ Internal Rotation 4 Good Horizontal Abduction 4- Good- Horizontal Adduction 5 Normal Elbow/Forearm Strength Elbow and Forearm Manual Muscle Testing Right Flexion (C6) 5 Normal Extension (C7) 5 Normal Pronation 5 Normal Supination 5 Normal PT-OP-T Assessment and Plan Start: 10/29/17 17:33 Freq: Status: Active Protocol: Document 03/25/18 10:17 EA (Rec: 03/25/18 10:20 EA [id number]) Physical Therapy Assessment Assessment Summary Assessment Patient discharge to this date due to change of medical status. Physical Therapy Plan Discharge Physical Therapy Discharge Reasons Change in Medical Status
== END 2018-04-06 12:27 ==
LOC: PHYS 10:30
PROVIDERS: Family Provider Nurse Practitioner; PCP Nurse Practitioner; Visit Provider Nurse Practitioner
DX: M25.511 Pain in right shoulder (principal)
CPT/HCPCS: 97010; 97014; 97035; 97110; 97140; 97161; G0283

== ENCOUNTER → 2017-11-27 12:00 | Outpatient (CLI) | payer OTHER, SELFPAY ==
--- NOTE | 2017-11-27 12:02 | DI.MRI.S_ITS ---
PROCEDURE: MR SHOULDER RT WO CON INDICATIONS: possible labral tear TECHNIQUE: Noncontrast oblique coronal T2 fast spin echo with fat saturation, oblique sagittal T1 spin echo and T2 fast spin echo with fat saturation, axial T1 spin echo and T2 fast spin echo with fat saturation through the shoulder. COMPARISON: None. FINDINGS: Image quality: Excellent. Rotator cuff: The supraspinatus, infraspinatus, subscapularis, and teres minor appear intact. Sagittal images demonstrate no fatty muscle atrophy. Bones and bursae: No fractures. There is edema within the distal clavicle extending to the acromioclavicular joint without an associated fracture line. The finding is suggestive of distal clavicular osteolysis but the differential also includes a bone contusion or sequelae of inflammatory changes. Minimal periarticular edema also noted in the acromion. There is moderate acromioclavicular joint degeneration with periarticular edema and capsular hypertrophy. The acromion demonstrates slight lateral downsloping, without an os acromiale. There is mild thickening of the coracoclavicular ligament. Minimal subacromial/subdeltoid bursal fluid is present. Capsule and soft tissues: There is a partially detached undersurface tear of the superior and posterior superior labrum. There is also linear intermediate signal within the anteroinferior labrum along the labroligamentous junction. In the absence of intra-articular contrast, the glenohumeral ligaments appear intact. The long head of the biceps tendon demonstrates normal location and morphology. The rotator interval appears normal, without fibrosis. The coracohumeral ligament is normal in thickness. IMPRESSION: 1. Moderate acromioclavicular joint degeneration with periarticular edema and capsular hypertrophy which may represent sequelae of an inflammatory arthropathy or sprain. 2. Edema within the distal clavicle extending to the acromioclavicular joint as well as mild periarticular edema in the acromion. The findings in the distal clavicle may reflect distal clavicular osteolysis, but the differential includes sequelae of inflammatory changes at the acromioclavicular joint or bone contusion. 3. SLAP 2 tear of the superior and posterosuperior labrum. 4. Linear intermediate signal within the anteroinferior labrum may also reflect a subtle tear with evaluation limited in the absence of intra-articular contrast. Dictated by: Wilner Avelar M.D. on 11/27/2017 at 15:08 Approved by: Wilner Avelar M.D. on 11/27/2017 at 15:25
== END ==
PROVIDERS: Family Provider Nurse Practitioner; PCP Nurse Practitioner; Visit Provider Family Medicine
DX: S43.431A Superior glenoid labrum lesion of right shoulder, initial encounter (principal); M19.011 Primary osteoarthritis, right shoulder
CPT/HCPCS: 73221

== ENCOUNTER → 2017-12-07 11:00 | Outpatient (CLI) | payer OTHER, SELFPAY ==
--- NOTE | 2017-12-07 | DI.MG.S_ITS ---
BILATERAL DIGITAL SCREENING MAMMOGRAM 3D/2D WITH CAD: 12/07/2017 CLINICAL: Routine screening. Comparison is made to exams dated: 02/14/2014 mammogram, 02/10/2013 mammogram, and 01/29/2012 mammogram - [facility]. The tissue of both breasts is heterogeneously dense. This may lower the sensitivity of mammography. Current study was also evaluated with a Computer Aided Detection (CAD) system. No significant masses, calcifications, or other findings are seen in either breast. There has been no significant interval change. IMPRESSION: NEGATIVE There is no mammographic evidence of malignancy. A 1 year screening mammogram is recommended. This exam was interpreted at Station ID: [id number]. NOTE: For mammograms, a report in lay terms will be sent to the patient. Approximately 15% of breast malignancies will not be visualized mammographically. In the management of a palpable breast mass, a negative mammogram must not discourage biopsy of a clinically suspicious lesion. Electronically Signed By: Matilda barnett/ana:12/07/2017 11:30:03 copy to: Radha Traylor letter sent: Normal Exam ACR BI-RADS Category 1: Negative [id number]
== END ==
PROVIDERS: PCP Internal Medicine; Visit Provider Family Medicine
DX: Z12.31 Encounter for screening mammogram for malignant neoplasm of breast (principal)
CPT/HCPCS: 77063; 77067

== ENCOUNTER → 2018-01-06 14:22 | Outpatient (CLI) | payer OTHER, SELFPAY | DX: Z23 Encounter for immunization (principal) | CPT/HCPCS: 90471; 90686 ==

== ENCOUNTER 2018-06-02 16:00 | Outpatient (RCR) | payer OTHER, SELFPAY ==
--- NOTE | 2018-04-07 17:00 | PT.OPPOC ---
Current Diagnoses Primary osteoarthritis, right shoulder (04/07/18) Provider Visit Care Team Role Provider Type LAUREN Mcghee Primary Care Provider Advanced Forest Fire Management Officer Specialty: Family Practice Address: [address] [place] [address] [address], [place], [address] Email: [email or web address] Rebecca Peterson PA-C Attending Provider Non-Staff Specialty: Medical Address: [address] [place] [address] [address], [place], [address] Email: Plan Of Care PT-OP-T Assessment and Plan Start: 04/07/18 09:34 Freq: Status: Active Protocol: Document 04/07/18 09:37 EA (Rec: 04/07/18 09:42 EA [id number]) Physical Therapy Assessment Rehab Potential Rehabilitation Potential Good Evaluation Complexity Number of Personal Factors/Comorbidities 0 Number of Body Systems Impaired 1-2 Clinical Presentation at Evaluation Stable Impairments Impairments Functional Activities ROM Strength Goals Three Impairment Impaired R shoulder ABD/ Flexion ROM LTG Duration Patient will exhibit normal ABD/Flexion ROM to enhance R shoulder function Four Impairment Quick Dash score of 18 Assisted Goal (LTG) Patient will have Quick Dash Score of < 10 LTG Duration 4 wks Two Impairment Decreased shoulder Abd/Flexion /ER, scap ABD, elbow flexion MMT strength Assisted Goal (LTG) Pt will increase shoulder strength by 1/2 grade to improve shoulder functional elevation. LTG Duration 4 wks One Impairment No safe HEP in place Water Analyst Goal (LTG) Patient will perform HEP independently LTG Duration 4 wks Assessment Summary Assessment Pleasant 52 y/o F patient who is s/p right shoulder arthroscopic surgery d/t bone spur removal on 02/22/18 with no complication. Today patient presented with weakness and instability of the shoulder joint. Special tests reveals positive Clunk test, negative with Neer's, Empty can's, and Hawkin's tests. MMT to shoulder ABD/ flexion, ER, horizon Abd, and scapular stabilizing musculature reveals 3+/5 with no pain increased during the tests. No sensory alteration nor nerve involvement noted. Due to above dysfunction, patient unable to perform previous shoulder and arm activities. In my professional opinion, patient would benefit with skilled PT to enhance functional ability. Physical Therapy Plan Frequency and Duration Frequency of Treatment 1x/Week Duration of Treatment 8 wks Plan of Care Start Date 04/07/18 Plan of Care End Date 06/02/18 Therapeutic Interventions Therapeutic Interventions Home Exercise Program Manual Therapy Patient/Caregiver Education Self-Care/Home Management Soft Tissue Mobilization Taping Therapeutic Exercises Modalities Electric Stimulation Hot Packs Next Visit Focus/Plan Next Note Type Treatment Note Next Visit Plan HEP with images; strengthening exercises/stability Plan of Care Dates Plan of Care Start Date 04/07/18 Plan of Care End Date 06/02/18 Please Sign and Return: I have reviewed this Plan of Care and certify that the skilled therapy services above are required to meet the patient?s needs. Physician Signature Date Printed Name and Credentials Clinical Instructor Signature Printed Name and Credentials
--- NOTE | 2018-04-07 17:00 | PT.OIE ---
Current Diagnoses Primary osteoarthritis, right shoulder (04/07/18) Past Medical History (Last Updated 10/23/17 @ 20:32 by Jo Ann Ross) Depression (Chronic ~2000) Osteoarthritis (Chronic ~2008) Fractures (Resolved ~1972) Shingles (Resolved ~2010) Past Surgical History (Last Updated 10/23/17 @ 20:32 by Jo Ann Ross) Anesthesia (Resolved) History of thumb surgery (Resolved ~07/2013) Provider Visit Care Team Role Provider Type LAUREN Mcghee Primary Care Provider Advanced Security Services Manager Specialty: Family Practice Address: [address] [place] [address], [id number] Email: [email or web address] Rebecca Peterson PA-C Attending Provider Non-Staff Specialty: Medical Address: [address] [place] [address] [address], [place], [id number] Email: Physical Therapy Initial Evaluation PT-OP-A Visit Information Start: 04/07/18 09:34 Freq: Status: Active Protocol: Document 04/07/18 09:37 EA (Rec: 04/07/18 09:42 EA [id number]) Out-Patient Physical Therapy Visit Information Visit Information Visit Type Initial Evaluation Visit Start Time 09:00 Visit Stop Time 09:35 Total Visit Minutes 35 Visit Number 1 Number of REED PRESS FEEDER Visits 0 Evaluation Information Evaluation Date 04/07/18 PT-OP-B Current Condition Start: 04/07/18 09:34 Freq: Status: Active Protocol: Document 04/07/18 10:30 EA (Rec: 04/07/18 13:45 EA [id number]) Current Condition History of Current Condition Onset Date 02/22/18 Current Complaints s/p right arthroscopic surgery d/t bone spurs 02/22/18 History of Current Condition Present condition started a year ago with no known injury. Pt recalled unstable and weak shoulder during shoulder fitness exercises; states learned to use movement substitution to enhance function. Pt had formal PT 7 months ago which stopped due to surgery. Pt reports arthroscopic surgery performed d /t bone spurs removal. Two weeks rest after surgery and with shoulder ROM HEP. Prior to surgery, MRI reports R AC joint arthropathy and SLAP 2 tear of ant/post labrum. Denies restriction at this time. Prior Treatments and Tests MRI (11/09/17) S/P right arthroscopic surgery 02/22/18 Future Testing and Treatments Planned None identified. Treatment Goals Patient/Caregiver Goals Patient wants to strengthen right shoulder joint so she could back to regular fitness exercises without limitation. Patient likes to do TRX suspension exercises. 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 Very slight limitation prior to 2018 aggravation. Current Functional Impairments (Reported) Functional Limitations- ADL's Indep with slight limitation with overhead activities Functional Limitations- Mobility/Gait Indep Functional Limitations- Work/School Slight limitation with overhead lifting Functional Limitations- Recreation/ Limited shoulder fitness Hobbies exercises PT-OP-C Subjective Start: 04/07/18 09:34 Freq: Status: Active Protocol: Document 04/07/18 09:37 EA (Rec: 04/07/18 09:42 EA [id number]) OP-PT Subjective Patient Comments Patient Comments Patient reports pain is not much but weakness still evident; reports arm beyond shoulder level feels unstable. Patient Reported Progress Same Patient Questionnaires Quick Dash- Work and Sports Modules Quick Dash W&S Score 19 Quick Dash Work and Sport Impairment 20 to 39% Impaired (Score 20- 39) OP-PT Pain Assessment Location Right Anterior Shoulder Pain Location Details right shoudler Intensity 1 Scale Used Numeric (1 - 10) Frequency Intermittent PT-OP-E Functional Tests Start: 04/07/18 09:34 Freq: Status: Active Protocol: Document 04/07/18 13:28 EA (Rec: 04/07/18 13:32 EA [id number]) Functional Tests Apley's Scratch Test Action 1: The subject is instructed to touch the opposite shoulder with his/her hand. This motion checks Glenohumeral adduction, internal rotation , horizontal adduction and scapular protraction Action 2: The subject is instructed to place his/her arm overhead and reach behind the neck to touch his/her upper back. This motion checks Glenohumeral abduction, external rotation and scapular upward rotation and elevation. Action 3: The subject puts his/her hand on the lower back and reaches upward as far as possible. This motion checks glenohumeral adduction, internal rotation and scapular retraction with downward rotation Action 1- Left post deltd Action 1- Right post delts Action 2- Left T4 Action 2- Right T2 Action 3- Left T6 Action 3- Right T10 PT-OP-J Posture/Palpation/Skin Start: 04/07/18 09:34 Freq: Status: Active Protocol: Document 04/07/18 10:30 EA (Rec: 04/07/18 13:28 EA [id number]) Posture Evaluation Position Sitting Evaluation View Lateral Head/C-Spine Posture Neutral Position T-Spine Posture Neutral L-Spine Posture Neutral Shoulder Subluxation Position (L) Neutral Scapula Posture (L) Retracted Comments Posture Comments Neck and shoulder posture are WFL Palpation Assessment Location One Palpation Location anterior shoulder Palpation Findings Tenderness Skin Assessment Incisional Assessment Incision Appearance/Comments <1 cm scar at ant, let and post right shoulder PT-OP-K Range of Motion Start: 04/07/18 09:34 Freq: Status: Active Protocol: Document 04/07/18 10:30 EA (Rec: 04/07/18 13:24 EA [id number]) Shoulder Goniometric Range of Motion Shoulder Measured in Degrees Right Active Testing Position Sitting Flexion 165 Extension 60 Abduction 165 External Rotation at 90 degrees 90 Abduction Internal Rotation 55 Internal Rotation Behind Back (text) Limited with pain Left Shoulder ROM WFL Yes PT-OP-L Special Tests Start: 04/07/18 09:34 Freq: Status: Active Protocol: Document 04/07/18 09:37 EA (Rec: 04/07/18 09:42 EA [id number]) Special Tests Cervical Spine Special Tests Foraminal Compression Test Results negative Upper Limb Tension Test Test Results negative Shoulder Depression Test Results negative Shoulder Special Tests Grind Labrum Test Results sensitive Clunk Test Test Results sensitive AC Joint Compression Test Results negative Speed's Biceps Test Results negative Elevation Impingement Test Results negative Neer Impingement Test Results negative Empty Can Test Results negative Belly Press Test Results negative PT-OP-M Strength Start: 04/07/18 09:34 Freq: Status: Active Protocol: Document 04/07/18 10:30 EA (Rec: 04/07/18 13:22 EA [id number]) Scapula Strength Scapula Manual Muscle Testing Right Elevation (C4) 4+ Good+ Adduction 3+ Fair+ Abduction 3+ Fair+ Depression 4+ Good+ Shoulder Strength Shoulder Manual Muscle Testing Right Flexion 3+ Fair+ Extension 4 Good Abduction (C5) 3+ Fair+ Adduction 5 Normal External Rotation 3+ Fair+ Internal Rotation 4- Good- Horizontal Abduction 3+ Fair+ Horizontal Adduction 4 Good Comments Left shoulder MMT grossly graded 5/5 Elbow/Forearm Strength Elbow and Forearm Manual Muscle Testing Right Flexion (C6) 4- Good- Extension (C7) 5 Normal Pronation 5 Normal Supination 5 Normal PT-OP-Q Treatments Start: 04/07/18 09:34 Freq: Status: Active Protocol: Document 04/07/18 09:37 EA (Rec: 04/07/18 09:42 EA [id number]) Self-Care/Home Management Treatment Education Patient Education Home Exercise Program Joint Protection Pain Management PT-OP-T Assessment and Plan Start: 04/07/18 09:34 Freq: Status: Active Protocol: Document 04/07/18 09:37 EA (Rec: 04/07/18 09:42 EA [id number]) Physical Therapy Assessment Rehab Potential Rehabilitation Potential Good Evaluation Complexity Number of Personal Factors/Comorbidities 0 Number of Body Systems Impaired 1-2 Clinical Presentation at Evaluation Stable Impairments Impairments Functional Activities ROM Strength Goals Three Impairment Impaired R shoulder ABD/ Flexion ROM LTG Duration Patient will exhibit normal ABD/Flexion ROM to enhance R shoulder function Four Impairment Quick Dash score of 18 Prison Goal (LTG) Patient will have Quick Dash Score of < 10 LTG Duration 4 wks Two Impairment Decreased shoulder Abd/Flexion /ER, scap ABD, elbow flexion MMT strength Prison Goal (LTG) Pt will increase shoulder strength by 1/2 grade to improve shoulder functional elevation. LTG Duration 4 wks One Impairment No safe HEP in place Prison Goal (LTG) Patient will perform HEP independently LTG Duration 4 wks Assessment Summary Assessment Pleasant 52 y/o F patient who is s/p right shoulder arthroscopic surgery d/t bone spur removal on 02/22/18 with no complication. Today patient presented with weakness and instability of the shoulder joint. Special tests reveals positive Clunk test, negative with Neer's, Empty can's, and Hawkin's tests. MMT to shoulder ABD/ flexion, ER, horizon Abd, and scapular stabilizing musculature reveals 3+/5 with no pain increased during the tests. No sensory alteration nor nerve involvement noted. Due to above dysfunction, patient unable to perform previous shoulder and arm activities. In my professional opinion, patient would benefit with skilled PT to enhance functional ability. Physical Therapy Plan Frequency and Duration Frequency of Treatment 1x/Week Duration of Treatment 8 wks Plan of Care Start Date 04/07/18 Plan of Care End Date 06/02/18 Therapeutic Interventions Therapeutic Interventions Home Exercise Program Manual Therapy Patient/Caregiver Education Self-Care/Home Management Soft Tissue Mobilization Taping Therapeutic Exercises Modalities Electric Stimulation Hot Packs Next Visit Focus/Plan Next Note Type Treatment Note Next Visit Plan HEP with images; strengthening exercises/stability
--- NOTE | 2018-04-20 13:38 | PT.OTN ---
Current Diagnoses Primary osteoarthritis, right shoulder (04/20/18) Physical Therapy Treatment Note PT-OP-A Visit Information Start: 04/07/18 09:34 Freq: Status: Active Protocol: Document 04/20/18 12:58 EA (Rec: 04/20/18 13:05 EA [id number]) Out-Patient Physical Therapy Visit Information Visit Information Visit Type Treatment Note Visit Start Time 12:15 Visit Stop Time 13:00 Total Visit Minutes 45 Visit Number 2 Number of SCUDDING INSPECTOR Visits 0 PT-OP-B Current Condition Start: 04/07/18 09:34 Freq: Status: Active Protocol: Document 04/07/18 10:30 EA (Rec: 04/07/18 13:45 EA [id number]) Current Condition History of Current Condition Onset Date 02/22/18 Current Complaints s/p right arthroscopic surgery d/t bone spurs 02/22/18 History of Current Condition Present condition started a year ago with no known injury. Pt recalled unstable and weak shoulder during shoulder fitness exercises; states learned to use movement substitution to enhance function. Pt had formal PT 7 months ago which stopped due to surgery. Pt reports arthroscopic surgery performed d /t bone spurs removal. Two weeks rest after surgery and with shoulder ROM HEP. Prior to surgery, MRI reports R AC joint arthropathy and SLAP 2 tear of ant/post labrum. Denies restriction at this time. Prior Treatments and Tests MRI (11/09/17) S/P right arthroscopic surgery 02/22/18 Future Testing and Treatments Planned None identified. Treatment Goals Patient/Caregiver Goals Patient wants to strengthen right shoulder joint so she could back to regular fitness exercises without limitation. Patient likes to do TRX suspension exercises. 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 Very slight limitation prior to 2018 aggravation. Current Functional Impairments (Reported) Functional Limitations- ADL's Indep with slight limitation with overhead activities Functional Limitations- Mobility/Gait Indep Functional Limitations- Work/School Slight limitation with overhead lifting Functional Limitations- Recreation/ Limited shoulder fitness Hobbies exercises PT-OP-C Subjective Start: 04/07/18 09:34 Freq: Status: Active Protocol: Document 04/20/18 12:58 EA (Rec: 04/20/18 13:05 EA [id number]) OP-PT Subjective Patient Comments Patient Comments Pt reports consistent HEP and wants to know at this time more progressive HEP so she can do while away. Pt denies any increased in pain. PT-OP-E Functional Tests Start: 04/07/18 09:34 Freq: Status: Active Protocol: Document 04/07/18 13:28 EA (Rec: 04/07/18 13:32 EA [id number]) Functional Tests Apley's Scratch Test Action 1: The subject is instructed to touch the opposite shoulder with his/her hand. This motion checks Glenohumeral adduction, internal rotation , horizontal adduction and scapular protraction Action 2: The subject is instructed to place his/her arm overhead and reach behind the neck to touch his/her upper back. This motion checks Glenohumeral abduction, external rotation and scapular upward rotation and elevation. Action 3: The subject puts his/her hand on the lower back and reaches upward as far as possible. This motion checks glenohumeral adduction, internal rotation and scapular retraction with downward rotation Action 1- Left post deltd Action 1- Right post delts Action 2- Left T4 Action 2- Right T2 Action 3- Left T6 Action 3- Right T10 PT-OP-J Posture/Palpation/Skin Start: 04/07/18 09:34 Freq: Status: Active Protocol: Document 04/07/18 10:30 EA (Rec: 04/07/18 13:28 EA [id number]) Posture Evaluation Position Sitting Evaluation View Lateral Head/C-Spine Posture Neutral Position T-Spine Posture Neutral L-Spine Posture Neutral Shoulder Subluxation Position (L) Neutral Scapula Posture (L) Retracted Comments Posture Comments Neck and shoulder posture are WFL Palpation Assessment Location One Palpation Location anterior shoulder Palpation Findings Tenderness Skin Assessment Incisional Assessment Incision Appearance/Comments <1 cm scar at ant, let and post right shoulder PT-OP-K Range of Motion Start: 04/07/18 09:34 Freq: Status: Active Protocol: Document 04/07/18 10:30 EA (Rec: 04/07/18 13:24 EA [id number]) Shoulder Goniometric Range of Motion Shoulder Measured in Degrees Right Active Testing Position Sitting Flexion 165 Extension 60 Abduction 165 External Rotation at 90 degrees 90 Abduction Internal Rotation 55 Internal Rotation Behind Back (text) Limited with pain Left Shoulder ROM WFL Yes PT-OP-L Special Tests Start: 04/07/18 09:34 Freq: Status: Active Protocol: Document 04/07/18 09:37 EA (Rec: 04/07/18 09:42 EA [id number]) Special Tests Cervical Spine Special Tests Foraminal Compression Test Results negative Upper Limb Tension Test Test Results negative Shoulder Depression Test Results negative Shoulder Special Tests Grind Labrum Test Results sensitive Clunk Test Test Results sensitive AC Joint Compression Test Results negative Speed's Biceps Test Results negative Elevation Impingement Test Results negative Neer Impingement Test Results negative Empty Can Test Results negative Belly Press Test Results negative PT-OP-M Strength Start: 04/07/18 09:34 Freq: Status: Active Protocol: Document 04/07/18 10:30 EA (Rec: 04/07/18 13:22 EA [id number]) Scapula Strength Scapula Manual Muscle Testing Right Elevation (C4) 4+ Good+ Adduction 3+ Fair+ Abduction 3+ Fair+ Depression 4+ Good+ Shoulder Strength Shoulder Manual Muscle Testing Right Flexion 3+ Fair+ Extension 4 Good Abduction (C5) 3+ Fair+ Adduction 5 Normal External Rotation 3+ Fair+ Internal Rotation 4- Good- Horizontal Abduction 3+ Fair+ Horizontal Adduction 4 Good Comments Left shoulder MMT grossly graded 5/5 Elbow/Forearm Strength Elbow and Forearm Manual Muscle Testing Right Flexion (C6) 4- Good- Extension (C7) 5 Normal Pronation 5 Normal Supination 5 Normal PT-OP-Q Treatments Start: 04/07/18 09:34 Freq: Status: Active Protocol: Document 04/20/18 12:58 EA (Rec: 04/20/18 13:05 EA [id number]) Cardio Equipment Upper Body Ergometer (UBE) Duration (Minutes) 5 RPM 60 Seat Position 10 Height 5 Therapeutic Exercises Prone Exercises 3 Prone Exercise Name T-ball: T-Y raises Resistance 1-2 lbs DB Reps/Minutes x 12-15 reps x 2 sets 2 Prone Exercise Name BOSU PLank: Elbow, hands, Knee bent to straight 1 Prone Exercise Name Plank: elbow to hands, bent knees to staight knees Reps/Minutes x 10-15 reps x 3 sets Standing Exercises 6 Standing Exercise Name Shoulder lateral raises Side bilateral Reps/Minutes x 12-15 reps 1 Standing Exercise Name Shoulder front raises Side bilateral Resistance 3-5lbs Reps/Minutes x12-15 reps x 2 sets Self-Care/Home Management Treatment Education Patient Education Body Mechanics Home Exercise Program Joint Protection Pain Management Posture Safety PT-OP-T Assessment and Plan Start: 04/07/18 09:34 Freq: Status: Active Protocol: Document 04/20/18 12:58 EA (Rec: 04/20/18 13:05 EA [id number]) Physical Therapy Assessment Assessment Summary Assessment Tolerated treatment well with minor right shoulder instability due to weakness. Recommended exercises given and explained and showed excellent understanding. Physical Therapy Plan Next Visit Focus/Plan Next Visit Plan Review HEP; progress to advance functional exercises or as tolerated.
--- NOTE | 2018-05-05 09:14 | PT.OTN ---
Current Diagnoses Primary osteoarthritis, right shoulder (05/05/18) Physical Therapy Treatment Note PT-OP-A Visit Information Start: 04/07/18 09:34 Freq: Status: Active Protocol: Document 05/05/18 09:01 EA (Rec: 05/05/18 09:13 EA [id number]) Out-Patient Physical Therapy Visit Information Visit Information Visit Type Treatment Note Visit Start Time 08:15 Visit Stop Time 09:08 Total Visit Minutes 53 Visit Number 3 Number of CALC[employer] TE[employer]ER Visits 0 PT-OP-B Current Condition Start: 04/07/18 09:34 Freq: Status: Active Protocol: Document 04/07/18 10:30 EA (Rec: 04/07/18 13:45 EA [id number]) Current Condition History of Current Condition Onset Date 02/22/18 Current Complaints s/p right artroscopic surgery d/t bone spurs 02/22/18 History of Current Condition Present condition started a year ago with no known injury. Pt recalled unstable and weak shoulder during shoulder fitness exercises; states learned to use movement substitution to enhance function. Pt had formal PT 7 months ago which stopped due to surgery. Pt reports atroscopic surgery performed d /t bone spurs removal. Two weeks rest after surgery and with shoulder ROM HEP. Prior to surgery, MRI reports R AC joint arthropathy and SLAP 2 tear of ant/post labrum. Denies restriction at this time. Prior Treatments and Tests MRI (11/09/17) S/P right arthroscopic surgery 02/22/18 Future Testing and Treatments Planned None identified. Treatment Goals Patient/Caregiver Goals Patient wants to strengthen right shoulder joint so she could back to regular fitness exercises without limitation. Patient likes to do TRX suspension exercises. 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 Very slight limitation prior to 2018 aggravation. Current Functional Impairments (Reported) Functional Limitations- ADL's Indep with slight limitation with overhead activities Functional Limitations- Mobility/Gait Indep Functional Limitations- Work/School Slight limitation with overhead lifting Functional Limitations- Recreation/ Limited shoulder fitness Hobbies exercises PT-OP-C Subjective Start: 04/07/18 09:34 Freq: Status: Active Protocol: Document 05/05/18 09:01 EA (Rec: 05/05/18 09:13 EA [id number]) OP-PT Subjective Patient Comments Patient Comments Pt reports right shoulder pain during HEP; states gradually decreased after resting for few days. PT-OP-E Functional Tests Start: 04/07/18 09:34 Freq: Status: Active Protocol: Document 04/07/18 13:28 EA (Rec: 04/07/18 13:32 EA [id number]) Functional Tests Apley's Scratch Test Action 1: The subject is instructed to touch the opposite shoulder with his/her hand. This motion checks Glenohumeral adduction, internal rotation , horizontal adduction and scapular protraction Action 2: The subject is instructed to place his/her arm overhead and reach behind the neck to touch his/her upper back. This motion checks Glenohumeral abduction, external rotation and scapular upward rotation and elevation. Action 3: The subject puts his/her hand on the lower back and reaches upward as far as possible. This motion checks glenohumeral adduction, internal rotation and scapular retraction with downward rotation Action 1- Left post deltd Action 1- Right post delts Action 2- Left T4 Action 2- Right T2 Action 3- Left T6 Action 3- Right T10 PT-OP-J Posture/Palpation/Skin Start: 04/07/18 09:34 Freq: Status: Active Protocol: Document 04/07/18 10:30 EA (Rec: 04/07/18 13:28 EA [id number]) Posture Evaluation Position Sitting Evaluation View Lateral Head/C-Spine Posture Neutral Position T-Spine Posture Neutral L-Spine Posture Neutral Shoulder Subluxation Position (L) Neutral Scapula Posture (L) Retracted Comments Posture Comments Neck and shoulder posture are WFL Palpation Assessment Location One Palpation Location anterior shoulder Palpation Findings Tenderness Skin Assessment Incisional Assessment Incision Appearance/Comments <1 cm scar at ant, let and post right shoulder PT-OP-K Range of Motion Start: 04/07/18 09:34 Freq: Status: Active Protocol: Document 04/07/18 10:30 EA (Rec: 04/07/18 13:24 EA [id number]) Shoulder Goniometric Range of Motion Shoulder Measured in Degrees Right Active Testing Position Sitting Flexion 165 Extension 60 Abduction 165 External Rotation at 90 degrees 90 Abduction Internal Rotation 55 Internal Rotation Behind Back (text) Limited with pain Left Shoulder ROM WFL Yes PT-OP-L Special Tests Start: 04/07/18 09:34 Freq: Status: Active Protocol: Document 04/07/18 09:37 EA (Rec: 04/07/18 09:42 EA [id number]) Special Tests Cervical Spine Special Tests Foraminal Compression Test Results negative Upper Limb Tension Test Test Results negative Shoulder Depression Test Results negative Shoulder Special Tests Grind Labrum Test Results sensitive Clunk Test Test Results sensitive AC Joint Compression Test Results negative Speed's Biceps Test Results negative Elevation Impingement Test Results negative Neer Impingement Test Results negative Empty Can Test Results negative Belly Press Test Results negative PT-OP-M Strength Start: 04/07/18 09:34 Freq: Status: Active Protocol: Document 04/07/18 10:30 EA (Rec: 04/07/18 13:22 EA [id number]) Scapula Strength Scapula Manual Muscle Testing Right Elevation (C4) 4+ Good+ Adduction 3+ Fair+ Abduction 3+ Fair+ Depression 4+ Good+ Shoulder Strength Shoulder Manual Muscle Testing Right Flexion 3+ Fair+ Extension 4 Good Abduction (C5) 3+ Fair+ Adduction 5 Normal External Rotation 3+ Fair+ Internal Rotation 4- Good- Horizontal Abduction 3+ Fair+ Horizontal Adduction 4 Good Comments Left shoulder MMT grossly graded 5/5 Elbow/Forearm Strength Elbow and Forearm Manual Muscle Testing Right Flexion (C6) 4- Good- Extension (C7) 5 Normal Pronation 5 Normal Supination 5 Normal PT-OP-Q Treatments Start: 04/07/18 09:34 Freq: Status: Active Protocol: Document 05/05/18 09:01 EA (Rec: 05/05/18 09:13 EA [id number]) Cardio Equipment Upper Body Ergometer (UBE) Duration (Minutes) 6 RPM 60 Seat Position 10 Height 5 Therapeutic Exercises Supine Exercises 2 Supine Exercise Name T-ball DB flyes. Pain free range Resistance 2-3lbsDB Reps/Minutes x 12 reps x 2 sets 1 Supine Exercise Name T-ball DB ceilling punch Resistance 5-7lbs Reps/Minutes x 10 reps x 2 sets Prone Exercises 3 Prone Exercise Name T-ball: T-Y raises Resistance 1-2 lbs DB Reps/Minutes x 12-15 reps x 2 sets 2 Prone Exercise Name Elbow planks: bent and straight knee Reps/Minutes x 10 reps x 2 sets 1 Prone Exercise Name T-ball prone shoulder abduction Resistance 1--2 lbs Equipment Used x 12 reps x 2 sets Standing Exercises 6 Standing Exercise Name Shoulder lateral raises Side bilateral Resistance 1-2 lbs Reps/Minutes x 12-15 reps 2 Standing Exercise Name Body blade: front and side 45- 90 deg Side right Reps/Minutes x 30 secs hold x 4 reps 1 Standing Exercise Name Shoulder front raises Side bilateral Resistance 3-5lbs Reps/Minutes x12-15 reps x 2 sets Manual Therapy Treatment Soft Tissue Mobilization 2 Body Location anterior shoulder Mobilization Type Cross-Friction Myofascial Release Body Position Supine Joint Mobilizations 1 Joint AC joint Grade II Reps/Duration x 5 mins PT-OP-R Modalities Start: 04/07/18 09:34 Freq: Status: Active Protocol: Document 05/05/18 09:13 EA (Rec: 05/05/18 09:14 EA [id number]) Hot Pack/Cold Pack Treatment Cold Pack Location right shoulder Patient Position Supine Treatment Duration (minutes) 12 Patient Tolerance Good PT-OP-T Assessment and Plan Start: 04/07/18 09:34 Freq: Status: Active Protocol: Document 05/05/18 09:01 EA (Rec: 05/05/18 09:13 EA [id number]) Physical Therapy Assessment Assessment Summary Assessment Quick assessment reveal no signs of RTC dysfunction but tender to touch, no bicipital tendonitis, no AC jnt dysfunction. Weakness to scap stabilizer still evident but able to improve with minimal resistance. Patient recommends to cont. with HEP and avoidance of aggressive open chain exercises. Physical Therapy Plan Next Visit Focus/Plan Next Visit Plan Cont with current plan.
--- NOTE | 2018-05-19 17:13 | PT.OTN ---
Current Diagnoses Primary osteoarthritis, right shoulder (05/19/18) Physical Therapy Treatment Note PT-OP-A Visit Information Start: 04/07/18 09:34 Freq: Status: Active Protocol: Document 05/19/18 17:04 EA (Rec: 05/19/18 17:13 EA [id number]) Out-Patient Physical Therapy Visit Information Visit Information Visit Type Treatment Note Visit Start Time 16:00 Visit Stop Time 16:55 Total Visit Minutes 55 Visit Number 4 PT-OP-B Current Condition Start: 04/07/18 09:34 Freq: Status: Active Protocol: Document 04/07/18 10:30 EA (Rec: 04/07/18 13:45 EA [id number]) Current Condition History of Current Condition Onset Date 02/22/18 Current Complaints s/p right artroscopic surgery d/t bone spurs 02/22/18 History of Current Condition Present condition started a year ago with no known injury. Pt recalled unstable and weak shoulder during shoulder fitness exercises; states learned to use movement substitution to enhance function. Pt had formal PT 7 months ago which stopped due to surgery. Pt reports atroscopic surgery performed d /t bone spurs removal. Two weeks rest after surgery and with shoulder ROM HEP. Prior to surgery, MRI reports R AC joint arthropathy and SLAP 2 tear of ant/post labrum. Denies restriction at this time. Prior Treatments and Tests MRI (11/09/17) S/P right arthroscopic surgery 02/22/18 Future Testing and Treatments Planned None identified. Treatment Goals Patient/Caregiver Goals Patient wants to strengthen right shoulder joint so she could back to regular fitness exercises without limitation. Patient likes to do TRX suspension exercises. 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 Very slight limitation prior to 2018 aggravation. Current Functional Impairments (Reported) Functional Limitations- ADL's Indep with slight limitation with overhead activities Functional Limitations- Mobility/Gait Indep Functional Limitations- Work/School Slight limitation with overhead lifting Functional Limitations- Recreation/ Limited shoulder fitness Hobbies exercises PT-OP-C Subjective Start: 04/07/18 09:34 Freq: Status: Active Protocol: Document 05/19/18 17:04 EA (Rec: 05/19/18 17:13 EA [id number]) OP-PT Subjective Patient Comments Patient Comments Pt reports unable to perform HEP while on vacation; denies pain but weak. Patient Reported Progress Improving PT-OP-E Functional Tests Start: 04/07/18 09:34 Freq: Status: Active Protocol: Document 04/07/18 13:28 EA (Rec: 04/07/18 13:32 EA [id number]) Functional Tests Apley's Scratch Test Action 1: The subject is instructed to touch the opposite shoulder with his/her hand. This motion checks Glenohumeral adduction, internal rotation , horizontal adduction and scapular protraction Action 2: The subject is instructed to place his/her arm overhead and reach behind the neck to touch his/her upper back. This motion checks Glenohumeral abduction, external rotation and scapular upward rotation and elevation. Action 3: The subject puts his/her hand on the lower back and reaches upward as far as possible. This motion checks glenohumeral adduction, internal rotation and scapular retraction with downward rotation Action 1- Left post deltd Action 1- Right post delts Action 2- Left T4 Action 2- Right T2 Action 3- Left T6 Action 3- Right T10 PT-OP-J Posture/Palpation/Skin Start: 04/07/18 09:34 Freq: Status: Active Protocol: Document 04/07/18 10:30 EA (Rec: 04/07/18 13:28 EA [id number]) Posture Evaluation Position Sitting Evaluation View Lateral Head/C-Spine Posture Neutral Position T-Spine Posture Neutral L-Spine Posture Neutral Shoulder Subluxation Position (L) Neutral Scapula Posture (L) Retracted Comments Posture Comments Neck and shoulder posture are WFL Palpation Assessment Location One Palpation Location anterior shoulder Palpation Findings Tenderness Skin Assessment Incisional Assessment Incision Appearance/Comments <1 cm scar at ant, let and post right shoulder PT-OP-K Range of Motion Start: 04/07/18 09:34 Freq: Status: Active Protocol: Document 04/07/18 10:30 EA (Rec: 04/07/18 13:24 EA [id number]) Shoulder Goniometric Range of Motion Shoulder Measured in Degrees Right Active Testing Position Sitting Flexion 165 Extension 60 Abduction 165 External Rotation at 90 degrees 90 Abduction Internal Rotation 55 Internal Rotation Behind Back (text) Limited with pain Left Shoulder ROM WFL Yes PT-OP-L Special Tests Start: 04/07/18 09:34 Freq: Status: Active Protocol: Document 04/07/18 09:37 EA (Rec: 04/07/18 09:42 EA [id number]) Special Tests Cervical Spine Special Tests Foraminal Compression Test Results negative Upper Limb Tension Test Test Results negative Shoulder Depression Test Results negative Shoulder Special Tests Grind Labrum Test Results sensitive Clunk Test Test Results sensitive AC Joint Compression Test Results negative Speed's Biceps Test Results negative Elevation Impingement Test Results negative Neer Impingement Test Results negative Empty Can Test Results negative Belly Press Test Results negative PT-OP-M Strength Start: 04/07/18 09:34 Freq: Status: Active Protocol: Document 04/07/18 10:30 EA (Rec: 04/07/18 13:22 EA [id number]) Scapula Strength Scapula Manual Muscle Testing Right Elevation (C4) 4+ Good+ Adduction 3+ Fair+ Abduction 3+ Fair+ Depression 4+ Good+ Shoulder Strength Shoulder Manual Muscle Testing Right Flexion 3+ Fair+ Extension 4 Good Abduction (C5) 3+ Fair+ Adduction 5 Normal External Rotation 3+ Fair+ Internal Rotation 4- Good- Horizontal Abduction 3+ Fair+ Horizontal Adduction 4 Good Comments Left shoulder MMT grossly graded 5/5 Elbow/Forearm Strength Elbow and Forearm Manual Muscle Testing Right Flexion (C6) 4- Good- Extension (C7) 5 Normal Pronation 5 Normal Supination 5 Normal PT-OP-Q Treatments Start: 04/07/18 09:34 Freq: Status: Active Protocol: Document 05/19/18 17:04 EA (Rec: 05/19/18 17:13 EA [id number]) Cardio Equipment Upper Body Ergometer (UBE) Duration (Minutes) 6 RPM 60 Seat Position 10 Height 5 Gym Equipment Cable Column (Body Solid) Lat Pull Down Resistance x 12 reps at 30 lbs Therapeutic Exercises Supine Exercises 3 Supine Exercise Name DP press Resistance 5-7 Reps/Minutes x 12 reps x 3 sets 2 Supine Exercise Name T-ball DB flyes. Pain free range Resistance 2-3lbsDB Reps/Minutes x 12 reps x 2 sets 1 Supine Exercise Name T-ball DB ceilling punch Resistance 5-7lbs Reps/Minutes x 10 reps x 2 sets Prone Exercises 3 Prone Exercise Name T-ball: T-Y raises Resistance 1-3 lbs DB Reps/Minutes x 12-15 reps x 2 sets 2 Prone Exercise Name Elbow planks: bent and straight knee Reps/Minutes x 10 reps x 2 sets 1 Prone Exercise Name T-ball prone shoulder abduction Resistance 1--2 lbs Equipment Used x 12 reps x 2 sets Standing Exercises 7 Standing Exercise Name cable tri-extension Side left Resistance 10 lbs Reps/Minutes x 12 reps x 2 6 Standing Exercise Name Shoulder lateral raises Side bilateral Resistance 1-3lbs Reps/Minutes x 12-15 reps 5 Standing Exercise Name shouler front raise Resistance 1-3 lbs DB Reps/Minutes x 12 reps x 2 2 Standing Exercise Name Body blade: front and side 45- 90 deg Side right Reps/Minutes x 30 secs hold x 4 reps PT-OP-R Modalities Start: 04/07/18 09:34 Freq: Status: Active Protocol: Document 05/19/18 17:04 EA (Rec: 05/19/18 17:13 EA [id number]) Hot Pack/Cold Pack Treatment Cold Pack Location right shoulder Patient Position Supine Treatment Duration (minutes) 12 Patient Tolerance Good PT-OP-T Assessment and Plan Start: 04/07/18 09:34 Freq: Status: Active Protocol: Document 05/19/18 17:04 EA (Rec: 05/19/18 17:13 EA [id number]) Physical Therapy Assessment Assessment Summary Assessment Patient exhibits improved exercises tolerance with good execution. minimal weakness still evident with prone scap/ shoulder exercises and that requires min assist during end range hold. Patient is progressing well. Physical Therapy Plan Next Visit Focus/Plan Next Note Type Treatment Note Next Visit Plan Cont with current plan.
--- NOTE | 2018-05-25 16:51 | PT.OTN ---
Current Diagnoses Primary osteoarthritis, right shoulder (05/25/18) Physical Therapy Treatment Note PT-OP-A Visit Information Start: 04/07/18 09:34 Freq: Status: Active Protocol: Document 05/25/18 15:07 EA (Rec: 05/25/18 15:15 EA [id number]) Out-Patient Physical Therapy Visit Information Visit Information Visit Type Treatment Note Visit Start Time 12:15 Visit Stop Time 13:00 Total Visit Minutes 45 Visit Number 5 Number of CORPORATE RELATIONS DIRECTOR Visits 0 PT-OP-B Current Condition Start: 04/07/18 09:34 Freq: Status: Active Protocol: Document 04/07/18 10:30 EA (Rec: 04/07/18 13:45 EA [id number]) Current Condition History of Current Condition Onset Date 02/22/18 Current Complaints s/p right artroscopic surgery d/t bone spurs 02/22/18 History of Current Condition Present condition started a year ago with no known injury. Pt recalled unstable and weak shoulder during shoulder fitness exercises; states learned to use movement substitution to enhance function. Pt had formal PT 7 months ago which stopped due to surgery. Pt reports atroscopic surgery performed d /t bone spurs removal. Two weeks rest after surgery and with shoulder ROM HEP. Prior to surgery, MRI reports R AC joint arthropathy and SLAP 2 tear of ant/post labrum. Denies restriction at this time. Prior Treatments and Tests MRI (11/09/17) S/P right arthroscopic surgery 02/22/18 Future Testing and Treatments Planned None identified. Treatment Goals Patient/Caregiver Goals Patient wants to strengthen right shoulder joint so she could back to regular fitness exercises without limitation. Patient likes to do TRX suspension exercises. 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 Very slight limitation prior to 2018 aggravation. Current Functional Impairments (Reported) Functional Limitations- ADL's Indep with slight limitation with overhead activities Functional Limitations- Mobility/Gait Indep Functional Limitations- Work/School Slight limitation with overhead lifting Functional Limitations- Recreation/ Limited shoulder fitness Hobbies exercises PT-OP-C Subjective Start: 04/07/18 09:34 Freq: Status: Active Protocol: Document 05/25/18 15:07 EA (Rec: 05/25/18 15:15 EA [id number]) OP-PT Subjective Patient Comments Patient Comments Pt reports able to perform fitness exercises and her puppy trainer assisted her during shoulder lifting. Pt denies any pain increase but mostly weakness. PT-OP-E Functional Tests Start: 04/07/18 09:34 Freq: Status: Active Protocol: Document 04/07/18 13:28 EA (Rec: 04/07/18 13:32 EA [id number]) Functional Tests Apley's Scratch Test Action 1: The subject is instructed to touch the opposite shoulder with his/her hand. This motion checks Glenohumeral adduction, internal rotation , horizontal adduction and scapular protraction Action 2: The subject is instructed to place his/her arm overhead and reach behind the neck to touch his/her upper back. This motion checks Glenohumeral abduction, external rotation and scapular upward rotation and elevation. Action 3: The subject puts his/her hand on the lower back and reaches upward as far as possible. This motion checks glenohumeral adduction, internal rotation and scapular retraction with downward rotation Action 1- Left post deltd Action 1- Right post delts Action 2- Left T4 Action 2- Right T2 Action 3- Left T6 Action 3- Right T10 PT-OP-J Posture/Palpation/Skin Start: 04/07/18 09:34 Freq: Status: Active Protocol: Document 04/07/18 10:30 EA (Rec: 04/07/18 13:28 EA [id number]) Posture Evaluation Position Sitting Evaluation View Lateral Head/C-Spine Posture Neutral Position T-Spine Posture Neutral L-Spine Posture Neutral Shoulder Subluxation Position (L) Neutral Scapula Posture (L) Retracted Comments Posture Comments Neck and shoulder posture are WFL Palpation Assessment Location One Palpation Location anterior shoulder Palpation Findings Tenderness Skin Assessment Incisional Assessment Incision Appearance/Comments <1 cm scar at ant, let and post right shoulder PT-OP-K Range of Motion Start: 04/07/18 09:34 Freq: Status: Active Protocol: Document 04/07/18 10:30 EA (Rec: 04/07/18 13:24 EA [id number]) Shoulder Goniometric Range of Motion Shoulder Measured in Degrees Right Active Testing Position Sitting Flexion 165 Extension 60 Abduction 165 External Rotation at 90 degrees 90 Abduction Internal Rotation 55 Internal Rotation Behind Back (text) Limited with pain Left Shoulder ROM WFL Yes PT-OP-L Special Tests Start: 04/07/18 09:34 Freq: Status: Active Protocol: Document 04/07/18 09:37 EA (Rec: 04/07/18 09:42 EA [id number]) Special Tests Cervical Spine Special Tests Foraminal Compression Test Results negative Upper Limb Tension Test Test Results negative Shoulder Depression Test Results negative Shoulder Special Tests Grind Labrum Test Results sensitive Clunk Test Test Results sensitive AC Joint Compression Test Results negative Speed's Biceps Test Results negative Elevation Impingement Test Results negative Neer Impingement Test Results negative Empty Can Test Results negative Belly Press Test Results negative PT-OP-M Strength Start: 04/07/18 09:34 Freq: Status: Active Protocol: Document 04/07/18 10:30 EA (Rec: 04/07/18 13:22 EA [id number]) Scapula Strength Scapula Manual Muscle Testing Right Elevation (C4) 4+ Good+ Adduction 3+ Fair+ Abduction 3+ Fair+ Depression 4+ Good+ Shoulder Strength Shoulder Manual Muscle Testing Right Flexion 3+ Fair+ Extension 4 Good Abduction (C5) 3+ Fair+ Adduction 5 Normal External Rotation 3+ Fair+ Internal Rotation 4- Good- Horizontal Abduction 3+ Fair+ Horizontal Adduction 4 Good Comments Left shoulder MMT grossly graded 5/5 Elbow/Forearm Strength Elbow and Forearm Manual Muscle Testing Right Flexion (C6) 4- Good- Extension (C7) 5 Normal Pronation 5 Normal Supination 5 Normal PT-OP-Q Treatments Start: 04/07/18 09:34 Freq: Status: Active Protocol: Document 05/25/18 15:07 EA (Rec: 05/25/18 15:15 EA [id number]) Cardio Equipment Upper Body Ergometer (UBE) Duration (Minutes) 5 RPM 60 Seat Position 10 Height 5 Gym Equipment Cable Column (Body Solid) Lat Pull Down Resistance x 12 reps at 35 lbs Therapeutic Exercises Supine Exercises 3 Supine Exercise Name DP press Resistance 5-7lbs Reps/Minutes x 12 reps x 3 sets 2 Supine Exercise Name T-ball DB flyes. Pain free range Resistance 2-4lbsDB Reps/Minutes x 12 reps x 2 sets 1 Supine Exercise Name T-ball DB ceilling punch Resistance 5-7lbs Reps/Minutes x 10 reps x 2 sets Prone Exercises 3 Prone Exercise Name T-ball: T-Y raises Resistance 3-5 lbs DB Reps/Minutes 12--8 Comments focus on eccentric contraction 2 Prone Exercise Name Elbow planks: bent and straight knee Reps/Minutes x 10 reps x 2 sets 1 Prone Exercise Name T-ball prone shoulder abduction Resistance 1--2 lbs Equipment Used x 12 reps x 2 sets Sitting Exercises 1 Sitting Exercise Name DB shoulder ER Side right Resistance 3-5 Reps/Minutes 12-10-8 reps Standing Exercises 7 Standing Exercise Name cable tri-extension Side left Resistance 10 lbs Reps/Minutes x 12 reps x 2 6 Standing Exercise Name Shoulder lateral raises Side bilateral Resistance 1-3lbs Reps/Minutes x 12-15 reps 5 Standing Exercise Name shouler front raise Resistance 1-3 lbs DB Reps/Minutes x 12 reps x 2 4 Standing Exercise Name D1/diagonal F/E Resistance 3 lbs Equipment Used x12 reps Reps/Minutes 12 reps x 2 Comments knee bent 2 Standing Exercise Name Body blade: front and side 45- 90 deg Side right Reps/Minutes x 30 secs hold x 4 reps 1 Standing Exercise Name Shoulder front raises Side bilateral Resistance 3-5lbs Reps/Minutes x12-15 reps x 2 sets PT-OP-R Modalities Start: 04/07/18 09:34 Freq: Status: Active Protocol: Document 05/25/18 15:15 EA (Rec: 05/25/18 15:16 EA [id number]) Hot Pack/Cold Pack Treatment Cold Pack Location right shoulder Patient Position Supine Treatment Duration (minutes) 12 Patient Tolerance Good PT-OP-T Assessment and Plan Start: 04/07/18 09:34 Freq: Status: Active Protocol: Document 05/25/18 15:07 EA (Rec: 05/25/18 15:15 EA [id number]) Physical Therapy Assessment Assessment Summary Assessment Tolerated treatment well with minor discomfort during shoulder ER but better with senior actuarial analyst weight. Physical Therapy Plan Next Visit Focus/Plan Next Note Type Treatment Note Next Visit Plan Cont with current plan.
--- NOTE | 2018-06-02 16:50 | PT.OTN ---
Current Diagnoses Primary osteoarthritis, right shoulder (06/02/18) Physical Therapy Treatment Note PT-OP-A Visit Information Start: 04/07/18 09:34 Freq: Status: Active Protocol: Document 06/02/18 16:39 EA (Rec: 06/02/18 16:50 EA [id number]) Out-Patient Physical Therapy Visit Information Visit Information Visit Type Treatment Note Visit Start Time 16:00 Visit Stop Time 16:53 Total Visit Minutes 3 Visit Number 5 PT-OP-B Current Condition Start: 04/07/18 09:34 Freq: Status: Active Protocol: Document 04/07/18 10:30 EA (Rec: 04/07/18 13:45 EA [id number]) Current Condition History of Current Condition Onset Date 02/22/18 Current Complaints s/p right artroscopic surgery d/t bone spurs 02/22/18 History of Current Condition Present condition started a year ago with no known injury. Pt recalled unstable and weak shoulder during shoulder fitness exercises; states learned to use movement substitution to enhance function. Pt had formal PT 7 months ago which stopped due to surgery. Pt reports atroscopic surgery performed d /t bone spurs removal. Two weeks rest after surgery and with shoulder ROM HEP. Prior to surgery, MRI reports R AC joint arthropathy and SLAP 2 tear of ant/post labrum. Denies restriction at this time. Prior Treatments and Tests MRI (11/09/17) S/P right arthroscopic surgery 02/22/18 Future Testing and Treatments Planned None identified. Treatment Goals Patient/Caregiver Goals Patient wants to strengthen right shoulder joint so she could back to regular fitness exercises without limitation. Patient likes to do TRX suspension exercises. 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 Very slight limitation prior to 2018 aggravation. Current Functional Impairments (Reported) Functional Limitations- ADL's Indep with slight limitation with overhead activities Functional Limitations- Mobility/Gait Indep Functional Limitations- Work/School Slight limitation with overhead lifting Functional Limitations- Recreation/ Limited shoulder fitness Hobbies exercises PT-OP-C Subjective Start: 04/07/18 09:34 Freq: Status: Active Protocol: Document 06/02/18 16:39 EA (Rec: 06/02/18 16:50 EA [id number]) OP-PT Subjective Patient Comments Patient Comments Pt reports able to perform fitness exercises including shoulder HEP; denies pain. Patient Reported Progress Improving PT-OP-E Functional Tests Start: 04/07/18 09:34 Freq: Status: Active Protocol: Document 04/07/18 13:28 EA (Rec: 04/07/18 13:32 EA [id number]) Functional Tests Apley's Scratch Test Action 1: The subject is instructed to touch the opposite shoulder with his/her hand. This motion checks Glenohumeral adduction, internal rotation , horizontal adduction and scapular protraction Action 2: The subject is instructed to place his/her arm overhead and reach behind the neck to touch his/her upper back. This motion checks Glenohumeral abduction, external rotation and scapular upward rotation and elevation. Action 3: The subject puts his/her hand on the lower back and reaches upward as far as possible. This motion checks glenohumeral adduction, internal rotation and scapular retraction with downward rotation Action 1- Left post deltd Action 1- Right post delts Action 2- Left T4 Action 2- Right T2 Action 3- Left T6 Action 3- Right T10 PT-OP-J Posture/Palpation/Skin Start: 04/07/18 09:34 Freq: Status: Active Protocol: Document 04/07/18 10:30 EA (Rec: 04/07/18 13:28 EA [id number]) Posture Evaluation Position Sitting Evaluation View Lateral Head/C-Spine Posture Neutral Position T-Spine Posture Neutral L-Spine Posture Neutral Shoulder Subluxation Position (L) Neutral Scapula Posture (L) Retracted Comments Posture Comments Neck and shoulder posture are WFL Palpation Assessment Location One Palpation Location anterior shoulder Palpation Findings Tenderness Skin Assessment Incisional Assessment Incision Appearance/Comments <1 cm scar at ant, let and post right shoulder PT-OP-K Range of Motion Start: 04/07/18 09:34 Freq: Status: Active Protocol: Document 04/07/18 10:30 EA (Rec: 04/07/18 13:24 EA [id number]) Shoulder Goniometric Range of Motion Shoulder Measured in Degrees Right Active Testing Position Sitting Flexion 165 Extension 60 Abduction 165 External Rotation at 90 degrees 90 Abduction Internal Rotation 55 Internal Rotation Behind Back (text) Limited with pain Left Shoulder ROM WFL Yes PT-OP-L Special Tests Start: 04/07/18 09:34 Freq: Status: Active Protocol: Document 04/07/18 09:37 EA (Rec: 04/07/18 09:42 EA [id number]) Special Tests Cervical Spine Special Tests Foraminal Compression Test Results negative Upper Limb Tension Test Test Results negative Shoulder Depression Test Results negative Shoulder Special Tests Grind Labrum Test Results sensitive Clunk Test Test Results sensitive AC Joint Compression Test Results negative Speed's Biceps Test Results negative Elevation Impingement Test Results negative Neer Impingement Test Results negative Empty Can Test Results negative Belly Press Test Results negative PT-OP-M Strength Start: 04/07/18 09:34 Freq: Status: Active Protocol: Document 04/07/18 10:30 EA (Rec: 04/07/18 13:22 EA [id number]) Scapula Strength Scapula Manual Muscle Testing Right Elevation (C4) 4+ Good+ Adduction 3+ Fair+ Abduction 3+ Fair+ Depression 4+ Good+ Shoulder Strength Shoulder Manual Muscle Testing Right Flexion 3+ Fair+ Extension 4 Good Abduction (C5) 3+ Fair+ Adduction 5 Normal External Rotation 3+ Fair+ Internal Rotation 4- Good- Horizontal Abduction 3+ Fair+ Horizontal Adduction 4 Good Comments Left shoulder MMT grossly graded 5/5 Elbow/Forearm Strength Elbow and Forearm Manual Muscle Testing Right Flexion (C6) 4- Good- Extension (C7) 5 Normal Pronation 5 Normal Supination 5 Normal PT-OP-Q Treatments Start: 04/07/18 09:34 Freq: Status: Active Protocol: Document 06/02/18 16:39 EA (Rec: 06/02/18 16:50 EA [id number]) Cardio Equipment Upper Body Ergometer (UBE) Duration (Minutes) 5 RPM 60 Seat Position 10 Height 7 Gym Equipment Cable Column (Body Solid) Lat Pull Down Resistance x 12 reps at 40 lbs Therapeutic Exercises Supine Exercises 4 Supine Exercise Name T-ball DB caul puller Resistance 7lbs Reps/Minutes x 12 reps x 2 Comments both hands together 3 Supine Exercise Name T- ball DB press Resistance 5-7-10lbs Reps/Minutes x 12 reps x 3 sets 2 Supine Exercise Name T-ball DB flyes. Pain free range Resistance 2-4lbsDB Reps/Minutes x 12 reps x 2 sets 1 Supine Exercise Name T-ball DB ceilling punch Resistance 5-7lbs Reps/Minutes x 10 reps x 2 sets Prone Exercises 3 Prone Exercise Name T-ball: T-Y raises Resistance 3-5 lbs DB Reps/Minutes 12-10-8 Comments focus on eccentric contraction 1 Prone Exercise Name T-ball prone shoulder abduction Resistance 1--2 lbs Equipment Used x 12 reps x 2 sets Sitting Exercises 1 Sitting Exercise Name DB shoulder ER Side right Resistance 3-5 Reps/Minutes 12-10-8 reps Standing Exercises 6 Standing Exercise Name Shoulder lateral raises Side bilateral Resistance 3-4lbs Reps/Minutes x 12reps 5 Standing Exercise Name shouler front raise Resistance 5-8 lbs DB Reps/Minutes x 12 reps x 3 Comments both hands 4 Standing Exercise Name D1/diagonal F/E Resistance 3 lbs Equipment Used x12 reps Reps/Minutes 12 reps x 2 Comments knee bent 2 Standing Exercise Name Body blade: front and side 45- 90 deg Side right Reps/Minutes x 30 secs hold x 4 reps PT-OP-R Modalities Start: 04/07/18 09:34 Freq: Status: Active Protocol: Document 06/02/18 16:50 EA (Rec: 06/02/18 16:50 EA [id number]) Hot Pack/Cold Pack Treatment Cold Pack Location right shoulder Patient Position Supine Treatment Duration (minutes) 10 Patient Tolerance Good PT-OP-T Assessment and Plan Start: 04/07/18 09:34 Freq: Status: Active Protocol: Document 06/02/18 16:39 EA (Rec: 06/02/18 16:50 EA [id number]) Physical Therapy Assessment Assessment Summary Assessment Requires tactile cues with arm raises on heavy set due to shoulder shrugs. Patient exhibits improved shoulder tolerance to exercises. Patient demonstrates safe exercises execution and therefore can perform to home. Follow up after two weeks. Physical Therapy Plan Next Visit Focus/Plan Next Note Type Treatment Note Next Visit Plan advance as tolerated.
--- NOTE | 2018-06-30 10:30 | PT.OPDS ---
Current Diagnoses Primary osteoarthritis, right shoulder (06/02/18) Provider Visit Care Team Role Provider Type LAUREN Mcghee Primary Care Provider Advanced Paperhanger Supervisor Specialty: Family Practice Address: [address], [address], [place], [address] Email: [email or web address] Rebecca Peterson PA-C Attending Provider Non-Staff Specialty: Medical Address: [address] [place] [address], [phone] Email: Visit Number Visit Number 5 Discharge Summary PT-OP-B Current Condition Start: 04/07/18 09:34 Freq: Status: Active Protocol: Document 04/07/18 10:30 EA (Rec: 04/07/18 13:45 EA [id number]) Current Condition History of Current Condition Onset Date 02/22/18 Current Complaints s/p right artroscopic surgery d/t bone spurs 02/22/18 History of Current Condition Present condition started a year ago with no known injury. Pt recalled unstable and weak shoulder during shoulder fitness exercises; states learned to use movement substitution to enhance function. Pt had formal PT 7 months ago which stopped due to surgery. Pt reports atroscopic surgery performed d /t bone spurs removal. Two weeks rest after surgery and with shoulder ROM HEP. Prior to surgery, MRI reports R AC joint arthropathy and SLAP 2 tear of ant/post labrum. Denies restriction at this time. Prior Treatments and Tests MRI (11/09/17) S/P right arthroscopic surgery 02/22/18 Future Testing and Treatments Planned None identified. Treatment Goals Patient/Caregiver Goals Patient wants to strengthen right shoulder joint so she could back to regular fitness exercises without limitation. Patient likes to do TRX suspension exercises. 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 Very slight limitation prior to 2018 aggravation. Current Functional Impairments (Reported) Functional Limitations- ADL's Indep with slight limitation with overhead activities Functional Limitations- Mobility/Gait Indep Functional Limitations- Work/School Slight limitation with overhead lifting Functional Limitations- Recreation/ Limited shoulder fitness Hobbies exercises PT-OP-C Subjective Start: 04/07/18 09:34 Freq: Status: Active Protocol: Document 06/30/18 10:30 EA (Rec: 07/28/18 17:16 EA [id number]) OP-PT Subjective Patient Comments Patient Comments [facility] PT concierge receptionist reports that patient would like to dischage in PT treament due to high copay. PT-OP-E Functional Tests Start: 04/07/18 09:34 Freq: Status: Active Protocol: Document 04/07/18 13:28 EA (Rec: 04/07/18 13:32 EA [id number]) Functional Tests Apley's Scratch Test Action 1: The subject is instructed to touch the opposite shoulder with his/her hand. This motion checks Glenohumeral adduction, internal rotation , horizontal adduction and scapular protraction Action 2: The subject is instructed to place his/her arm overhead and reach behind the neck to touch his/her upper back. This motion checks Glenohumeral abduction, external rotation and scapular upward rotation and elevation. Action 3: The subject puts his/her hand on the lower back and reaches upward as far as possible. This motion checks glenohumeral adduction, internal rotation and scapular retraction with downward rotation Action 1- Left post deltd Action 1- Right post delts Action 2- Left T4 Action 2- Right T2 Action 3- Left T6 Action 3- Right T10 PT-OP-J Posture/Palpation/Skin Start: 04/07/18 09:34 Freq: Status: Active Protocol: Document 04/07/18 10:30 EA (Rec: 04/07/18 13:28 EA [id number]) Posture Evaluation Position Sitting Evaluation View Lateral Head/C-Spine Posture Neutral Position T-Spine Posture Neutral L-Spine Posture Neutral Shoulder Subluxation Position (L) Neutral Scapula Posture (L) Retracted Comments Posture Comments Neck and shoulder posture are WFL Palpation Assessment Location One Palpation Location anterior shoulder Palpation Findings Tenderness Skin Assessment Incisional Assessment Incision Appearance/Comments <1 cm scar at ant, let and post right shoulder PT-OP-K Range of Motion Start: 04/07/18 09:34 Freq: Status: Active Protocol: Document 04/07/18 10:30 EA (Rec: 04/07/18 13:24 EA [id number]) Shoulder Goniometric Range of Motion Shoulder Measured in Degrees Right Active Testing Position Sitting Flexion 165 Extension 60 Abduction 165 External Rotation at 90 degrees 90 Abduction Internal Rotation 55 Internal Rotation Behind Back (text) Limited with pain Left Shoulder ROM WFL Yes PT-OP-L Special Tests Start: 04/07/18 09:34 Freq: Status: Active Protocol: Document 04/07/18 09:37 EA (Rec: 04/07/18 09:42 EA [id number]) Special Tests Cervical Spine Special Tests Foraminal Compression Test Results negative Upper Limb Tension Test Test Results negative Shoulder Depression Test Results negative Shoulder Special Tests Grind Labrum Test Results sensitive Clunk Test Test Results sensitive AC Joint Compression Test Results negative Speed's Biceps Test Results negative Elevation Impingement Test Results negative Neer Impingement Test Results negative Empty Can Test Results negative Belly Press Test Results negative PT-OP-M Strength Start: 04/07/18 09:34 Freq: Status: Active Protocol: Document 04/07/18 10:30 EA (Rec: 04/07/18 13:22 EA [id number]) Scapula Strength Scapula Manual Muscle Testing Right Elevation (C4) 4+ Good+ Adduction 3+ Fair+ Abduction 3+ Fair+ Depression 4+ Good+ Shoulder Strength Shoulder Manual Muscle Testing Right Flexion 3+ Fair+ Extension 4 Good Abduction (C5) 3+ Fair+ Adduction 5 Normal External Rotation 3+ Fair+ Internal Rotation 4- Good- Horizontal Abduction 3+ Fair+ Horizontal Adduction 4 Good Comments Left shoulder MMT grossly graded 5/5 Elbow/Forearm Strength Elbow and Forearm Manual Muscle Testing Right Flexion (C6) 4- Good- Extension (C7) 5 Normal Pronation 5 Normal Supination 5 Normal PT-OP-T Assessment and Plan Start: 04/07/18 09:34 Freq: Status: Active Protocol: Document 06/30/18 10:30 EA (Rec: 07/28/18 17:16 EA [id number]) Physical Therapy Assessment Assessment Summary Assessment Pt is discharge today upon request. Physical Therapy Plan Discharge Physical Therapy Discharge Reasons Patient Request
== END 2018-08-04 16:49 | disposition home or self-care (01) ==
LOC: PHYS 16:00
PROVIDERS: PCP Internal Medicine; Visit Provider Physician Assistant
DX: M19.011 Primary osteoarthritis, right shoulder (principal)
CPT/HCPCS: 97010; 97110; 97140; 97161; 97535

== ENCOUNTER → 2019-01-03 08:11 | Outpatient (CLI) | payer OTHER, SELFPAY ==
[2019-01-03 08:48] LABS: Add Manual Diff / Slide Review NO; Basophils Absolute Auto 100 /uL (0-100); Basophils Percent Auto 0.7 % (0-2); Eosinophils Absolute Auto 200 /uL (0-450); Eosinophils Percent Auto 2.5 % (2-4); Hematocrit 37.5 % (36-46); Hemoglobin 12.9 g/dL (12.0-16.0); Lymphocytes Absolute Auto 2400 /uL (1100-4500); Lymphocytes Percent Auto 27.9 % (25-40); Mean Corpuscular HGB Conc 34.4 % (30-36); Mean Corpuscular Hemoglobin 32.3 PG (26-34); Mean Corpuscular Volume 93.7 fL (80-100); Monocytes Absolute Auto 600 /uL (0-900); Monocytes Percent Auto 7.5 % (3-14); Neutrophils Absolute Auto 5200 /uL (1500-7000); Neutrophils Percent Auto 61.4 % (50-75); Platelet Count 342 X10^3/uL (150-400); Red Cell Distribution Width 13.2 % (11.6-14.8); White Blood Cell Count 8.5 X10^3/uL (4.5-11.0)
[2019-01-03 09:09] LABS: Alanine Aminotransferase 24 IU/L (9-52); Albumin 4.3 g/dL (3.5-5.0); Albumin Globulin Ratio 1.1 (1.0-2.8); Alkaline Phosphatase 78 U/L (38-126); Aspartate Aminotransferase 31 IU/L (14-36); Bilirubin Total 0.6 mg/dL (0.2-1.3); Blood Urea Nitrogen 16 mg/dL (7-17); Calcium 9.2 mg/dL (8.4-10.2); Carbon Dioxide 27 mmol/L (22-32); Chloride 106 mmol/L (98-107); Cholesterol 133 mg/dL (140-199); Estimated Glomerular Filt Rate > 60.0 mL/min (>60); Globulin 3.8 g/dL (1.7-4.1); Glucose 93 mg/dL (70-100); HDL Cholesterol 57 mg/dL (40-60); HEMOLYSIS < 15 (0-50); LDL Cholesterol Calculated 64 mg/dL (<100); Potassium 4.2 mmol/L (3.4-5.1); Sodium 142 mmol/L (137-145); Total Protein 8.1 g/dL (6.3-8.2); Triglycerides 58 mg/dL (35-150)
[2019-01-03 09:37] LABS: TSH w/ Reflex to FT4 1.35 uIU/mL (0.47-4.68)
== END ==
PROVIDERS: PCP Family Medicine; Visit Provider Family Medicine
DX: Z00.00 Encounter for general adult medical examination without abnormal findings (principal)
CPT/HCPCS: 36415; 80053; 80061; 84443; 85025

== ENCOUNTER → 2019-01-06 15:34 | Outpatient (CLI) | payer OTHER, SELFPAY | PROVIDERS: PCP Family Medicine | DX: Z23 Encounter for immunization (principal) | CPT/HCPCS: 90471; 90686 ==

== ENCOUNTER → 2019-02-18 11:59 | Outpatient (CLI) | payer OTHER, SELFPAY ==
--- NOTE | 2019-02-18 | DI.MG.S_ITS ---
BILATERAL DIGITAL SCREENING MAMMOGRAM 3D/2D WITH CAD: 02/18/2019 CLINICAL: Routine screening. Comparison is made to exams dated: 12/07/2017 mammogram, 02/14/2014 mammogram, and 02/10/2013 mammogram - [facility]. The tissue of both breasts is heterogeneously dense. This may lower the sensitivity of mammography. Current study was also evaluated with a Computer Aided Detection (CAD) system. No significant masses, calcifications, or other findings are seen in either breast. There has been no significant interval change. IMPRESSION: NEGATIVE There is no mammographic evidence of malignancy. A 1 year screening mammogram is recommended. This exam was interpreted at Station ID: [id number]. NOTE: For mammograms, a report in lay terms will be sent to the patient. Approximately 15% of breast malignancies will not be visualized mammographically. In the management of a palpable breast mass, a negative mammogram must not discourage biopsy of a clinically suspicious lesion. Electronically Signed By: Christy naranjo/ana:02/18/2019 13:31:56 letter sent: Normal Exam ACR BI-RADS Category 1: Negative 3341F
== END ==
PROVIDERS: PCP Family Medicine; Visit Provider Family Medicine
DX: Z12.31 Encounter for screening mammogram for malignant neoplasm of breast (principal)
CPT/HCPCS: 77063; 77067

== ENCOUNTER → 2019-09-13 09:39 | Outpatient (CLI) | payer OTHER, SELFPAY ==
--- NOTE | 2019-09-13 09:41 | DI.RAD.S_ITS ---
PROCEDURE: XR CERVICAL SPINE 2V OR 3V INDICATIONS: neck pain, h/o bulging disc TECHNIQUE: 3 view(s) of the cervical spine were acquired. COMPARISON: [facility], , C-SPINE WITHOUT CONTRAST, 04/12/2008, 14:11. FINDINGS: Bones: No fractures or dislocations to the T1 level. The lateral masses of C1 appear intact on the odontoid view. No suspicious bony lesions. Degenerative changes are seen, with moderate to severe disc space narrowing at C4-C5 and C5-C6. Minimal disc space narrowing can be seen at C3-C4. At least partially bridging anterior osteophytes are seen C2-C6. There is mild reversal of the normal cervical lordosis, with the apex at the C4-C5 level. There is minimal retrolisthesis seen at C4-C5. Soft tissues: No prevertebral soft tissue swelling. The visualized lung apices are unremarkable. Artifact with jayce from the patient's respiratory mask can be seen. IMPRESSION: Relatively prominent cervical spine degenerative changes are seen, which are overall most prominent by plain film at C4-C5. Dictated by: Leroy Garcia M.D. on 09/13/2019 at 9:12 Approved by: Leroy Garcia M.D. on 09/13/2019 at 9:14
== END ==
PROVIDERS: PCP Family Medicine; Referring Provider Family Medicine; Visit Provider Family Medicine
DX: M54.2 Cervicalgia (principal); M47.812 Spondylosis without myelopathy or radiculopathy, cervical region
CPT/HCPCS: 72040

== ENCOUNTER → 2019-10-05 11:33 | Outpatient (CLI) | payer OTHER, SELFPAY ==
[2019-10-06 08:50] LABS: COVID19 Sendout Not Detected (Not Detect)
== END ==
PROVIDERS: PCP Family Medicine; Visit Provider Physician Assistant
DX: Z03.818 Encounter for observation for suspected exposure to other biological agents ruled out (principal)
CPT/HCPCS: 87635

== ENCOUNTER → 2020-02-10 14:05 | Outpatient (CLI) | payer OTHER, SELFPAY ==
--- NOTE | 2020-02-10 14:05 | DI.MRI.S_ITS ---
PROCEDURE: MR CERVICAL SPINE WO CON INDICATIONS: Cervical radiculopathy TECHNIQUE: Noncontrast sagittal T1 spin echo and T2 fast spin echo, sagittal STIR, foraminal oblique sagittal T2 fast spin echo, and axial gradient echo or T2 fast spin echo through the cervical spine. COMPARISON: 04/12/2008 MRI cervical spine FINDINGS: Image quality: Excellent. Alignment and Curvature: Straightening and reversal of the usual cervical lordosis. Anterolisthesis of C2 on C3 measuring 2 millimeters. Anterolisthesis of C3 on C4 measuring 2 millimeters. Retrolisthesis of C4 with respect to C5 measuring 1-2 millimeters. Vertebral body heights maintained. Bone Marrow: Mild discogenic marrow signal change at the C3-C4, C4-C5, and C5-C6 endplates. No suspicious focal marrow signal abnormality or bone marrow edema. Spinal Cord: No cervical cord signal abnormality or syrinx. No inferior cerebellar tonsillar ectopia. Regional Soft Tissues: Prevertebral and paraspinous soft tissues are within normal limits. C2-C3: Posterior disc-osteophyte complex without spinal canal stenosis. Facet and uncovertebral hypertrophy contributing to mild bilateral neural foraminal stenosis. C3-C4: Posterior disc-osteophyte complex flattens the ventral cord. There is overall mild spinal canal stenosis. Facet and uncovertebral hypertrophy contribute to moderate bilateral neural foraminal stenosis. C4-C5: Posterior disc-osteophyte complex flattens the ventral cord and also posteriorly displaces the cord with some flattening of the dorsal cord against the ligamentum flavum. There is near circumferential effacement of CSF surrounding the cord. No cord signal abnormality. Severe bilateral neural foraminal stenosis related to facet and uncovertebral hypertrophy. C5-C6: Moderate spinal canal stenosis due to posterior disc-osteophyte complex as well as some buckling of the ligamentum flavum. Mild flattening of both the ventral and dorsal cord contours. No cord signal abnormality. Facet and uncovertebral hypertrophy contribute to severe left and moderate right neural foraminal stenosis. C6-C7: Posterior disc-osteophyte complex flattens and indents the ventral thecal sac, most notably in the left subarticular zone where there is mild displacement of the traversing left C7 nerve root. Facet and uncovertebral hypertrophy contribute to severe left and mild right neural foraminal stenosis. C7-T1: No spinal canal stenosis. Mild bilateral neural foraminal stenosis related to uncovertebral and facet spurring. IMPRESSION: Multilevel multifactorial degenerative changes including moderate to severe spinal canal stenosis at C4-C5, moderate spinal canal stenosis at C5-C6, and varying degrees of neural foraminal stenosis up to severe. Findings at every level have progressed since 2009 exam. Dictated by: Lionel Garsia M.D. on 02/10/2020 at 14:55 Approved by: Lionel Garsia M.D. on 02/10/2020 at 14:59
== END ==
PROVIDERS: PCP Family Medicine; Referring Provider Family Medicine; Visit Provider Physical Medicine & Rehabilitation
DX: M47.22 Other spondylosis with radiculopathy, cervical region (principal); M48.02 Spinal stenosis, cervical region
CPT/HCPCS: 72141

== ENCOUNTER → 2020-02-13 | Outpatient (CLI) | payer OTHER, SELFPAY | PROVIDERS: PCP Family Medicine; Referring Provider Internal Medicine; Visit Provider Internal Medicine | DX: Z23 Encounter for immunization (principal) | CPT/HCPCS: 90471; 90686 ==

== ENCOUNTER → 2020-03-28 14:52 | Outpatient (CLI) | payer OTHER, SELFPAY ==
--- NOTE | 2020-03-28 | DI.MG.S_ITS ---
BILATERAL DIGITAL SCREENING MAMMOGRAM 3D/2D WITH CAD: 03/28/2020 CLINICAL: Routine screening. Comparison is made to exams dated: 02/18/2019 mammogram, 12/07/2017 mammogram, and 02/14/2014 mammogram - [facility]. The tissue of both breasts is heterogeneously dense. This may lower the sensitivity of mammography. Current study was also evaluated with a Computer Aided Detection (CAD) system. No significant masses, calcifications, or other findings are seen in either breast. There has been no significant interval change. IMPRESSION: NEGATIVE There is no mammographic evidence of malignancy. A 1 year screening mammogram is recommended. This exam was interpreted at Station ID: [id number]. NOTE: For mammograms, a report in lay terms will be sent to the patient. Approximately 15% of breast malignancies will not be visualized mammographically. In the management of a palpable breast mass, a negative mammogram must not discourage biopsy of a clinically suspicious lesion. Electronically Signed By: Marin sousa/ana:03/29/2020 08:15:12 letter sent: Normal Exam ACR BI-RADS Category 1: Negative 3341F
== END ==
PROVIDERS: PCP Family Medicine; Referring Provider Family Medicine; Visit Provider Family Medicine
DX: Z12.31 Encounter for screening mammogram for malignant neoplasm of breast (principal)
CPT/HCPCS: 77063; 77067

== ENCOUNTER → 2020-04-04 09:44 | Outpatient (CLI) | payer OTHER, SELFPAY ==
[2020-04-04] MEDS: COVID-19 VACC(MODERNA-1)/PF 100 MCG/0.5 ML VIAL IM (09:48)
== END ==
PROVIDERS: PCP Family Medicine; Visit Provider Internal Medicine
DX: Z23 Encounter for immunization (principal)
CPT/HCPCS: 0011A; 91301

== ENCOUNTER → 2020-05-01 09:07 | Outpatient (CLI) | payer OTHER, SELFPAY ==
[2020-05-01] MEDS: COVID-19 VACC #2, MRNA(MOD) 100 MCG/0.5 ML VIAL IM (09:12)
== END ==
PROVIDERS: PCP Family Medicine; Visit Provider Internal Medicine
DX: Z23 Encounter for immunization (principal)
CPT/HCPCS: 0012A; 91301

== ENCOUNTER → 2020-09-18 10:37 | Outpatient (CLI) | payer OTHER, SELFPAY ==
[2020-11-07 08:15] LABS: Add Manual Diff / Slide Review NO; Basophils Absolute Auto 100 /uL (0-100); Basophils Percent Auto 0.9 % (0-2); Eosinophils Absolute Auto 300 /uL (0-450); Hematocrit 39.6 % (36-46); Hemoglobin 13.3 g/dL (12.0-16.0); Lymphocytes Absolute Auto 2600 /uL (1100-4500); Lymphocytes Percent Auto 32.9 % (25-40); Mean Corpuscular HGB Conc 33.6 % (30-36); Mean Corpuscular Hemoglobin 31.5 PG (26-34); Mean Corpuscular Volume 93.9 fL (80-100); Monocytes Absolute Auto 600 /uL (0-900); Monocytes Percent Auto 7.1 % (3-14); Neutrophils Absolute Auto 4400 /uL (1500-7000); Neutrophils Percent Auto 55.1 % (50-75); Platelet Count 352 X10^3/uL (150-400); Red Blood Cell Count 4.22 X10^6/uL (4.0-5.2); Red Cell Distribution Width 13.8 % (11.6-14.8); White Blood Cell Count 7.9 X10^3/uL (4.5-11.0)
[2020-11-07 08:26] LABS: Alanine Aminotransferase 22 IU/L (<35); Albumin 4.2 g/dL (3.5-5.0); Albumin Globulin Ratio 1.1 (1.0-2.8); Alkaline Phosphatase 84 U/L (38-126); Aspartate Aminotransferase 29 IU/L (14-36); BUN Creatinine Ratio 25.4 (6-22); Bilirubin Total 0.7 mg/dL (0.2-1.3); Blood Urea Nitrogen 17 mg/dL (7-17); Calcium 9.3 mg/dL (8.4-10.2); Carbon Dioxide 23 mmol/L (22-32); Chloride 108 mmol/L (98-107); Estimated Glomerular Filt Rate > 60.0 mL/min (>60); Globulin 3.9 g/dL (1.7-4.1); Glucose 97 mg/dL (70-100); HEMOLYSIS 15 (0-50); Sodium 140 mmol/L (137-145); Total Protein 8.1 g/dL (6.3-8.2)
[2020-11-07 08:34] LABS: HEMOLYSIS 35 (0-50); Iron 135 ug/dL (37-170)
[2020-11-07 08:46] LABS: Percent Iron Saturation 52 % (15-50); Total Iron Binding Capacity 260 ug/dL (265-497); Transferrin 204 mg/dL (206-381)
[2020-11-07 09:06] LABS: TSH w/ Reflex to FT4 1.16 uIU/mL (0.47-4.68)
[2020-11-07 10:12] LABS: Vitamin D 25 Hydroxy (D3) 28.8 ng/mL (30.0-100.0)
== END ==
PROVIDERS: PCP Family Medicine; Visit Provider Specialist
DX: R30.0 Dysuria (principal)
CPT/HCPCS: 80053; 82306; 83540; 83550; 84443; 85025; 87077; 87086; 87186

== ENCOUNTER → 2020-11-07 08:03 | Outpatient (CLI) | payer OTHER, SELFPAY ==
--- NOTE | 2020-11-07 13:32 | DI.RAD.S_ITS ---
PROCEDURE: XR LUMBAR SPINE 2-3V INDICATIONS: lower back pain TECHNIQUE: 3 views of the lumbar spine were acquired. COMPARISON: None. FINDINGS: Bones: No acute fracture identified. Multilevel degenerative endplate sclerosis and spurring. Diffuse facet arthropathy. Straightening of the normal lordotic curvature. Moderate narrowing of the L4-L5 and L5-S1 disc spaces. There is diffuse mild to moderate narrowing of the remaining lumbar disc spaces. Trace retrolisthesis of L3 on L4 and L4 on L5. Mild levocurvature. Soft tissues: Overlying bowel gas pattern is normal. No suspicious soft tissue calcifications. IMPRESSION: Straightening of the normal lordotic curvature. Mild levocurvature Multilevel lumbar spondylosis and facet arthropathy Dictated by: Jorge Luis Foley M.D. on 11/07/2020 at 14:02 Approved by: Jorge Luis Foley M.D. on 11/07/2020 at 14:08
--- NOTE | 2020-11-07 13:32 | DI.RAD.S_ITS ---
PROCEDURE: XR HIP W PEL IF DONE YINKA MIN 4V INDICATIONS: bilateral hip pian TECHNIQUE: AP pelvis with lateral view(s) of the right and left hip(s). COMPARISON: None. FINDINGS: Bones: No fractures or dislocations. Pelvic ring appears intact. No suspicious bony lesions. Bilateral hip osseous hypertrophy. Mild bilateral hip joint space narrowing, right greater than left. Soft tissues: The visualized bowel gas pattern is normal. No suspicious soft tissue calcifications. IMPRESSION: Moderate bilateral hip osteoarthritis. Dictated by: Ana Kaur MD, PhD on 11/07/2020 at 14:12 Approved by: Ana Kaur MD, PhD on 11/07/2020 at 14:13
== END ==
PROVIDERS: PCP Family Medicine; Referring Provider Family Medicine; Visit Provider Family Medicine
DX: M25.551 Pain in right hip (principal); M25.552 Pain in left hip; M54.5 Low back pain
CPT/HCPCS: 72100; 73522

== ENCOUNTER → 2021-01-31 17:40 | Outpatient (CLI) | payer OTHER, SELFPAY | PROVIDERS: PCP Family Medicine; Referring Provider Internal Medicine; Visit Provider Internal Medicine | DX: Z23 Encounter for immunization (principal) | CPT/HCPCS: 90471; 90686 ==

== ENCOUNTER → 2021-02-08 13:53 | Outpatient (CLI) | payer OTHER, SELFPAY ==
[2021-02-08] MEDS: COVID-19 VACC #3, MRNA(MOD) 50 MCG/0.25 ML VIAL IM (13:57)
== END ==
PROVIDERS: PCP Family Medicine; Visit Provider Internal Medicine
DX: Z23 Encounter for immunization (principal)
CPT/HCPCS: 0013A; 91301

== ENCOUNTER → 2021-04-03 07:32 | Outpatient (CLI) | payer OTHER, SELFPAY ==
--- NOTE | 2021-04-03 | DI.MG.S_ITS ---
BILATERAL DIGITAL SCREENING MAMMOGRAM 3D/2D WITH CAD: 04/03/2021 CLINICAL: Routine screening. Comparison is made to exams dated: 03/28/2020 mammogram, 02/18/2019 mammogram, and 12/07/2017 mammogram - [facility]. The tissue of both breasts is heterogeneously dense. This may lower the sensitivity of mammography. Current study was also evaluated with a Computer Aided Detection (CAD) system. No significant masses, calcifications, or other findings are seen in either breast. There has been no significant interval change. IMPRESSION: NEGATIVE There is no mammographic evidence of malignancy. A 1 year screening mammogram is recommended. This exam was interpreted at Station ID: [id number]. NOTE: For mammograms, a report in lay terms will be sent to the patient. Approximately 15% of breast malignancies will not be visualized mammographically. In the management of a palpable breast mass, a negative mammogram must not discourage biopsy of a clinically suspicious lesion. Electronically Signed By: Vega hough/ana:04/03/2021 13:03:41 letter sent: Normal Exam ACR BI-RADS Category 1: Negative 3341F
== END ==
PROVIDERS: PCP Family Medicine; Referring Provider Family Medicine; Visit Provider Family Medicine
DX: Z12.31 Encounter for screening mammogram for malignant neoplasm of breast (principal)
CPT/HCPCS: 77063; 77067

== ENCOUNTER → 2021-04-18 12:13 | Outpatient (CLI) | payer OTHER, SELFPAY | PROVIDERS: PCP Family Medicine; Referring Provider Physical Medicine & Rehabilitation; Visit Provider Physical Medicine & Rehabilitation | DX: M54.12 Radiculopathy, cervical region (principal); M48.02 Spinal stenosis, cervical region; M50.20 Other cervical disc displacement, unspecified cervical region; M47.812 Spondylosis without myelopathy or radiculopathy, cervical region | CPT/HCPCS: 95886; 95909 ==

== ENCOUNTER → 2021-07-02 09:55 | Outpatient (CLI) | payer OTHER, SELFPAY ==
[2021-07-02 11:04] LABS: COVID19 -Nasal RAPID Negative (Negative)
== END ==
PROVIDERS: PCP Family Medicine; Visit Provider Physical Medicine & Rehabilitation
DX: Z20.822 Contact with and (suspected) exposure to COVID-19 (principal)
CPT/HCPCS: 87635; C9803

== ENCOUNTER 2021-07-04 08:45 | Outpatient (CLI) | payer OTHER, SELFPAY ==
[2021-07-04] VITALS (7 sets, daily range): BP systolic 117–134; BP diastolic 63–89; PULSE 64–77; RESP 14–20; TEMP 36.3; O2SAT 97–100
--- NOTE | 2021-07-04 08:47 | DI.RAD.S_ITS ---
PROCEDURE: PAIN C/T INTERLAMINAR INJECT INDICATIONS: SPINAL STENOSIS COMPARISON: [facility], MR, MR CERVICAL SPINE WO CON, 02/10/2020, 14:21. FINDINGS: Fluoroscopic spot filming was performed to verify placement of spinal needles at the C6-7 level, as labeled on the films. Appropriate epidural location of the needle tip was confirmed by injection of iodinated contrast. IMPRESSION: Fluoroscopic images demonstrate epidural needle placement at the C6-7 level. Dictated by: Marin Mccullough M.D. on 07/04/2021 at 11:29 Approved by: Marin Mccullough M.D. on 07/04/2021 at 11:31
[2021-07-04] MEDS: MIDAZOLAM 2 MG/2 ML VIAL IV (09:40)
[2021-07-04] MEDS: DEXAMETHASONE 10 MG/ML VIAL 30 MG INJ (09:46)
[2021-07-04] MEDS: BUPIVACAINE 0.25% (PF) VIAL 2 ML INJ (09:46)
[2021-07-04] MEDS: IOPAMIDOL 15 ML VIAL 3 ML INJ (09:46)
--- NOTE | 2021-07-04 10:00 | P.PCN_ITS ---
Date/Time/Diagnoses Date of procedure: 07/04/21 Time of procedure: 10:00 Pre-procedure diagnosis: 1. CERVICAL STENOSIS, 2. CERVICAL HNP WITH UPPER EXTREMITY RADICULAR FEATURES Post-procedure diagnosis: same Procedure Notes Procedure: 1. FLUORSCOPICALLY GUIDED CONTRAST CONTROLLED INTERLAMINAR EPIDURAL STEROID INJECTION - C6/7 TL MICHELLE Indications: Mandy is referred by Dr. Mcneal for treatment of Cervical HNP with Upper Extremity Paresthesias. Physician: René Hartmann Total Fluoroscopy time (seconds): 35 Total sedation minutes: 16 Complications: none Procedure in detail & Post-procedure care: FINDINGS Cervical Stenosis due to disc deterioration and nerve root irritation and nerve root irritation DESCRIPTION OF PROCEDURE Fluoroscopically guided, contrast-controlled C6/7 translaminar epidural steroid injection with conscious sedation. Following review of allergy and review of potential side effects and complications, including, but not necessarily limited to, infection, allergic reaction, local tissue breakdown, temporary as well as permanent nerve injury, stroke, paralysis, and possible , the patient indicated that patient understood and agreed to proceed. An informed consent document was signed by the patient, witnessed by a nurse, and placed in the patient's chart. Additionally, other treatment options including modalities, medications, and physical therapy were reviewed with the patient. After review of previous anaesthesic history and IV conscious sedation the patient was deemed safe to proceed with today?s procedure with IV conscious sedation as ASA class II designation. Safety time-out was performed to confirm patient ID, procedure to be performed and site of procedure. IV sedation was accomplished with a combination of 2mg of Versed administered by the RN after DO order, titrated to patient comfort during the course of the procedure while the patient remained responsive to all verbal commands. In the prone position, following sterile prep and drape of the cervical region, the C6/7 translaminar space was identified fluoroscopically. The skin was anesthetized via a 25-gauge 1.5-inch needle with 1% lidocaine solution. At this point, a 25-gauge, 2.5-inch short bevel spinal needle was atraumatically introduced and advanced under fluoroscopic guidance into epidural space at the C6/7 translaminar space. Depth was confirmed on lateral view. Radiological data, including multiple fluoroscopic views of the cervical spine, reveal a spinal needle at the C6/7 translaminar space. Lateral views then show placement of the needle in the epidural space. Subsequent views show contrast material flowing superiorly and inferiorly in the epidural space. DSA fluoroscopy with live contrast injection, once again, confirmed no vascular or intrathecal uptake. At this point, using loss of resistance technique with saline and air, the epidural space was entered. Following negative aspiration, injection of approximately 1.5 cc of Isovue-200 with live fluoroscopy in the AP view confirmed epidural flow in the epidural space without vascular or intrathecal uptake observed. Subsequently, a test dose of 1 cc of 1% lidocaine solution was injected and patient was observed for two minutes without signs or symptoms of complications, including abdominal pain, shortness of breath, bilateral upper or lower extremity weakness, nausea and vomiting, prior to steroid injection. At this point, 3cc or 30mg of dexamethasone was then injected without incident. The patient tolerated the procedure well without signs or symptoms of complica tions prior to being transferred to the recovery area for further monitoring, The patient was then transferred to the recovery area where they were observed for an appropriate period of time after the injection. The patient reported a VAS score of 6 prior to the procedure and a post-procedure VAS of 0. POST OP INSTRUCTIONS The patient was provided a Pain Log to continue to record their response to the target-specific procedure prior to follow-up visit with the referring provider. Additionally, specific post-injection care instructions and a contact number to our office were provided if concerns arise regarding possible complications associated with the procedure are suspected.
== END 2021-07-04 10:18 | disposition home or self-care (01) ==
PROVIDERS: PCP Family Medicine; Referring Provider Physical Medicine & Rehabilitation; Visit Provider Physical Medicine & Rehabilitation
DX: M48.02 Spinal stenosis, cervical region (principal); M50.123 Cervical disc disorder at C6-C7 level with radiculopathy
CPT/HCPCS: 62321; 99152; J1100; J2250; J3010

== ENCOUNTER → 2021-08-01 16:41 | Outpatient (CLI) | payer OTHER, SELFPAY ==
--- NOTE | 2021-08-01 16:42 | DI.MRI.S_ITS ---
PROCEDURE: MR CERVICAL SPINE WO CON INDICATIONS: severe right C5 weakness TECHNIQUE: Noncontrast sagittal T1 spin echo and T2 fast spin echo, sagittal STIR, foraminal oblique sagittal T2 fast spin echo, and axial gradient echo or T2 fast spin echo through the cervical spine. COMPARISON: [facility], MR, MR CERVICAL SPINE WO CON, 02/10/2020, 14:21. FINDINGS: Image quality: Excellent. Alignment and Curvature: There is loss of normal cervical lordosis. There is grade 1 anterolisthesis of C2 on C3 and C3 on C4. Grade 1 retrolisthesis of C4 on C5. Bone Marrow: Marrow demonstrates normal overall signal. Spinal Cord: Visualized spinal cord has normal size and signal. No cerebellar tonsillar herniation. Paraspinous Soft Tissues: No paravertebral masses. Prevertebral soft tissues are normal in thickness. C2-C3: Preserved disc height. Moderate disc desiccation. There is diffuse posterior disc bulge and disc protrusion. Severe left and moderate right facet arthropathy. The central canal is minimally narrowed. Severe left and moderate right foraminal stenosis. C3-C4: Preserved disc height. Moderate disc desiccation. There is diffuse posterior disc bulge and disc protrusion with disc osteophyte complex. Severe bilateral facet arthropathy. The central canal is moderately narrowed. Severe bilateral foraminal stenosis. C4-C5: Mild loss of disc height. Moderate disc desiccation. There is diffuse posterior disc bulge and disc protrusion with large disc osteophyte complex. Uncovertebral hypertrophy, left greater than right. Mild bilateral facet arthropathy. The central canal is severely narrowed. Severe bilateral foraminal stenosis. C5-C6: Mild loss of disc height. Moderate disc desiccation. There is diffuse posterior disc bulge and disc protrusion with large disc osteophyte complex. Bilateral uncovertebral hypertrophy. Mild bilateral facet arthropathy. The central canal is severely narrowed. Severe bilateral foraminal stenosis. C6-C7: Preserved disc height. Mild disc desiccation. There is diffuse posterior disc bulge and disc protrusion. Bilateral uncovertebral hypertrophy. Mild bilateral facet arthropathy. The central canal is mildly narrowed. Moderate left and mild right foraminal stenosis. C7-T1: Normal appearance. IMPRESSION: 1. Multilevel degenerative disc disease and facet arthropathy as described. 2. Severe central canal stenosis at C4-C5, C5-C6 and C6-C7. 3. Multilevel foraminal stenosis as described, severe at C2-C3 on the left, C3-C4 bilaterally, C4-C5 bilaterally and C5-C6 bilaterally. Dictated by: Elizabeth Sultana M.D. on 08/01/2021 at 17:31 Approved by: Elizabeth Sultana M.D. on 08/01/2021 at 17:38
== END ==
PROVIDERS: PCP Family Medicine; Referring Provider Physical Medicine & Rehabilitation; Visit Provider Physical Medicine & Rehabilitation
DX: M50.11 Cervical disc disorder with radiculopathy, high cervical region (principal); M48.02 Spinal stenosis, cervical region; M47.22 Other spondylosis with radiculopathy, cervical region
CPT/HCPCS: 72141

== ENCOUNTER → 2022-01-07 13:32 | Outpatient (CLI) | payer OTHER, SELFPAY | PROVIDERS: PCP Family Medicine; Referring Provider Internal Medicine; Visit Provider Internal Medicine | DX: Z23 Encounter for immunization (principal) | CPT/HCPCS: 90471; 90686 ==

== ENCOUNTER → 2022-01-28 10:24 | Outpatient (CLI) | payer OTHER, SELFPAY ==
--- NOTE | 2022-01-28 10:25 | DI.RAD.S_ITS ---
PROCEDURE: XR LUMBAR SPINE MIN 4V INDICATIONS: LBP with Right HIP PAIN TECHNIQUE: 5 views of the lumbar spine were acquired, including bilateral oblique views.>> COMPARISON: [facility], CR, XR LUMBAR SPINE 2-3V, 11/07/2020, 13:31. FINDINGS: Bones: 5 nonrib-bearing vertebrae are present. There is straightening of normal lumbar lordosis. Loss of disc height and degenerative endplate changes throughout lumbar spine is seen most notably at L4-5 level. No vertebral body compression fractures. No suspicious bony lesions. Soft tissues: Overlying bowel gas pattern is normal. No suspicious soft tissue calcifications. Oblique images: No pars defects. IMPRESSION: Degenerative disc disease throughout lumbar spine most notably at L4-5 level. No acute compression fracture or significant spondylolisthesis. No gross pars defects. Dictated by: Alton Lazo M.D. on 01/28/2022 at 11:42 Approved by: Alton Lazo M.D. on 01/28/2022 at 11:49
== END ==
PROVIDERS: PCP Family Medicine; Referring Provider Physical Medicine & Rehabilitation; Visit Provider Physical Medicine & Rehabilitation
DX: M16.0 Bilateral primary osteoarthritis of hip (principal); M51.36 Other intervertebral disc degeneration, lumbar region
CPT/HCPCS: 72110

== ENCOUNTER → 2022-03-11 08:12 | Outpatient (CLI) | payer OTHER, SELFPAY ==
[2022-03-11 09:33] LABS: Vitamin D 25 Hydroxy (D3) 40.5 ng/mL (30.0-100.0)
[2022-03-11 09:48] LABS: TSH w/ Reflex to FT4 1.32 uIU/mL (0.47-4.68)
[2022-03-11 10:09] LABS: Estradiol, Total 15.4 pg/mL
[2022-03-11 15:56] LABS: Free T4, Direct Thyroxine 1.35 ng/dL (0.78-2.19)
== END ==
PROVIDERS: PCP Family Medicine; Referring Provider Family Medicine; Visit Provider Family Medicine
DX: E55.9 Vitamin D deficiency, unspecified (principal); R53.83 Other fatigue; E03.9 Hypothyroidism, unspecified
CPT/HCPCS: 36415; 82306; 82670; 84439; 84443

== ENCOUNTER → 2022-05-09 14:07 | Outpatient (CLI) | payer OTHER, SELFPAY ==
--- NOTE | 2022-05-09 | DI.RAD.S_ITS ---
PROCEDURE: XR CERVICAL SPINE 2V OR 3V INDICATIONS: CERVICAL STENOSIS TECHNIQUE: 3 view(s) of the cervical spine were acquired. COMPARISON: [facility], CR, XR CERVICAL SPINE 2 OR 3 VIEWS, 02/11/2022, 16:20. [facility], CR, XR CERVICAL SPINE 2V OR 3V, 09/13/2019, 8:40. FINDINGS: Bones: ACDF at C3-C4 C4-C5 C5-C6. No fractures or dislocations to the T1 level. Prominent vertebral body osteophytes. Uncovertebral joint hypertrophy. The lateral masses of C1 appear intact on the odontoid view. No suspicious bony lesions. Soft tissues: No prevertebral soft tissue swelling. Impacted molars. IMPRESSION: Moderate degenerative change in the cervical spine. ACDF C3-C6 is stable. Dictated by: Mo Taylor M.D. on 05/09/2022 at 16:14 Approved by: Mo Taylor M.D. on 05/09/2022 at 16:17
== END ==
PROVIDERS: PCP Family Medicine; Referring Provider Orthopaedic Surgery; Visit Provider Orthopaedic Surgery
DX: M48.02 Spinal stenosis, cervical region (principal); M47.812 Spondylosis without myelopathy or radiculopathy, cervical region; Z98.1 Arthrodesis status
CPT/HCPCS: 72040

== ENCOUNTER → 2022-05-30 15:40 | Outpatient (CLI) | payer OTHER, SELFPAY ==
--- NOTE | 2022-05-30 15:42 | DI.MRI.S_ITS ---
PROCEDURE: MR HIP RT WO CON INDICATIONS: Progressive right hip DJD TECHNIQUE: Noncontrast coronal T1 spin echo and STIR through the bony pelvis. Coronal and axial T2 fast spin echo with fat saturation, sagittal T1 spin echo, and oblique axial T2 fast spin echo with fat saturation through the hip. COMPARISON: None. FINDINGS: Image quality: Excellent. Bones and joints: Asymmetric severe right hip joint osteoarthritic changes are seen with complete loss of joint space, extensive subchondral sclerosis and edema as well as prominent lateral marginal osteophyte formation. No intraosseous lesions or fractures. No avascular necrosis of the femoral heads. The visualized lower lumbar spine appears normally aligned. Tendons and ligaments: The gluteus medius and minimus tendons appear intact, without associated muscle atrophy. The nearby proximal iliotibial band also appears intact. The iliopsoas tendon appears intact, without adjacent bursal fluid collections or evidence for impingement syndrome. The origin of the hamstring tendon is intact at the ischial tuberosity, as well as the associated sacrotuberous ligament. The straight and reflected heads of the rectus femoris muscle origin appear intact, as well as the conjoint tendon. The ligamentum teres appears intact where visualized. Labrum and cartilage: Global signal abnormality throughout right hip labrum is seen suggestive of extensive right hip labral tear. Diffuse loss of articulating cartilage in femoral head is seen. Soft tissues: Visualized muscles demonstrate normal bulk and internal signal. Quadratus femoris muscle demonstrates no internal edema to suggest ischiofemoral impingement. The proximal sciatic neurovascular bundle appears normal adjacent to the hamstring tendons. No free pelvic fluid. Bladder wall thickness is normal. Genitourinary structures and bowel loops appear normal where visualized. IMPRESSION: 1. Asymmetric severe right hip joint osteoarthritis. No acute fracture or dislocation. No evidence of avascular necrosis of femoral head. 2. Suggestion of extensive right hip labral tear. 3. No gross muscle or tendon signal abnormalities. Dictated by: Alton Lazo M.D. on 05/30/2022 at 21:12 Approved by: Alton Lazo M.D. on 05/30/2022 at 21:15
== END ==
PROVIDERS: PCP Family Medicine; Referring Provider Physical Medicine & Rehabilitation; Visit Provider Physical Medicine & Rehabilitation
DX: M16.0 Bilateral primary osteoarthritis of hip (principal)
CPT/HCPCS: 73721

== ENCOUNTER → 2022-08-04 08:51 | Outpatient (CLI) | payer OTHER, SELFPAY ==
--- NOTE | 2022-08-04 | DI.RAD.S_ITS ---
PROCEDURE: XR HIP W PEL IF DONE RT 2V INDICATIONS: HIP PAIN TECHNIQUE: AP pelvis with lateral view(s) of the right hip(s). COMPARISON: [facility], CR, XR HIP W PEL IF DONE YINKA 3TO4V, 11/07/2020, 13:31. FINDINGS: Bones: There is severe right and mild left hip joint space narrowing. Large osteophytes and articular surface sclerosis is present on the right. Some subchondral cystic change is present on the left. There is some deformity of the right femoral head left secondary to degenerative change. Soft tissues: The visualized bowel gas pattern is normal. No suspicious soft tissue calcifications. IMPRESSION: Severe right and moderate left hip osteoarthritis. Dictated by: Matilda Lopez M.D. on 08/04/2022 at 13:04 Approved by: Matilda Lopez M.D. on 08/04/2022 at 13:05
== END ==
PROVIDERS: PCP Family Medicine; Referring Provider Orthopaedic Surgery; Visit Provider Orthopaedic Surgery
DX: M25.551 Pain in right hip (principal); M16.0 Bilateral primary osteoarthritis of hip
CPT/HCPCS: 73502

== ENCOUNTER → 2022-08-21 08:38 | Outpatient (CLI) | payer OTHER, SELFPAY ==
[2022-08-21 09:27] LABS: Add Manual Diff / Slide Review NO; Basophils Absolute Auto 100 /uL (0-100); Basophils Percent Auto 0.9 % (0-2); Eosinophils Absolute Auto 200 /uL (0-450); Eosinophils Percent Auto 1.7 % (2-4); Hematocrit 37.3 % (36-46); Hemoglobin 12.8 g/dL (12.0-16.0); Lymphocytes Absolute Auto 2700 /uL (1100-4500); Lymphocytes Percent Auto 26.5 % (25-40); Mean Corpuscular HGB Conc 34.2 % (30-36); Mean Corpuscular Hemoglobin 32.1 PG (26-34); Mean Corpuscular Volume 93.7 fL (80-100); Monocytes Absolute Auto 900 /uL (0-900); Monocytes Percent Auto 8.5 % (3-14); Neutrophils Absolute Auto 6300 /uL (1500-7000); Neutrophils Percent Auto 62.4 % (50-75); Platelet Count 351 X10^3/uL (150-400); Red Blood Cell Count 3.98 X10^6/uL (4.0-5.2); Red Cell Distribution Width 13.5 % (11.6-14.8); White Blood Cell Count 10.1 X10^3/uL (4.5-11.0)
[2022-08-21 09:41] LABS: Blood Urea Nitrogen 15 mg/dL (7-17); Calcium 9.4 mg/dL (8.4-10.2); Carbon Dioxide 28 mmol/L (22-32); Chloride 102 mmol/L (98-107); Estimated Glomerular Filt Rate > 60 mL/min (>60); Glucose 93 mg/dL (70-100); HEMOLYSIS < 15 (0-50); Potassium 4.3 mmol/L (3.4-5.1); Sodium 139 mmol/L (137-145)
== END ==
PROVIDERS: Physician Assistant; Family Provider Family Medicine; PCP Family Medicine; Referring Provider Orthopaedic Surgery; Visit Provider Orthopaedic Surgery
DX: M16.0 Bilateral primary osteoarthritis of hip (principal); Z01.818 Encounter for other preprocedural examination
CPT/HCPCS: 80048; 85025

== ENCOUNTER → 2022-11-11 11:43 | Outpatient (CLI) | payer OTHER, SELFPAY ==
[2022-11-11 13:17] LABS: Appearance Urine UA CLOUDY; Bilirubin Urine UA NEGATIVE (NEGATIVE); Color Urine UA YELLOW; Glucose Urine UA NEGATIVE (Negative); Ketones Urine UA NEGATIVE (NEGATIVE); Leukocyte Esterase Urine UA 2+ (NEGATIVE); Nitrite Urine UA POSITIVE (Negative); Occult Blood Urine UA TRACE-INTACT (Negative); Protein Urine UA TRACE (Negative); Specific Gravity Urine UA 1.025 (1.000-1.035)
[2022-11-11 13:27] LABS: RBC Urine 1-5/HPF (0-5/HPF); WBC Urine >100/HPF (0-5/HPF); pH Urine UA 5.5 (4.5-8.0)
[2022-11-11 13:28] LABS: Bacteria Urine Many (>30); Calcium Oxalate Crystals Urine Moderate; Culture Indicated Urine Specimen Cultured; Squamous Epithelial Cell Urine 1-5 /HPF (0-5/HPF)
== END ==
PROVIDERS: Family Provider Family Medicine; PCP Family Medicine; Referring Provider Family Medicine; Visit Provider Family Medicine
DX: R30.0 Dysuria (principal)
CPT/HCPCS: 81001; 87077; 87086; 87186

== ENCOUNTER → 2022-12-25 16:12 | Outpatient (CLI) | payer OTHER, SELFPAY ==
--- NOTE | 2022-12-25 16:14 | DI.MG.S_ITS ---
BILATERAL DIGITAL SCREENING MAMMOGRAM 3D/2D WITH CAD: 12/25/2022 CLINICAL: Routine screening. Comparison is made to exams dated: 04/03/2021 mammogram, 03/28/2020 mammogram, 02/18/2019 mammogram, and 12/07/2017 mammogram - [facility]. Both breasts are heterogeneously dense, which may obscure small masses (category c / 51-75% glandular tissue). Current study was also evaluated with a Computer Aided Detection (CAD) system. No significant masses, calcifications, or other findings are seen in either breast. There has been no significant interval change. IMPRESSION: NEGATIVE There is no mammographic evidence of malignancy. A 1 year screening mammogram is recommended. Based on the Tyrer Cuzick model (a risk assessment model) the patient's lifetime risk is 14.4% and her 10 year risk is 4.8%. According to the ACR, ACS, and NCCN guidelines, an annual breast MRI exam along with mammogram is recommended if the patient's lifetime risk is 20% or greater. This exam was interpreted at Station ID: [id number]. NOTE: For mammograms, a report in lay terms will be sent to the patient. Approximately 15% of breast malignancies will not be visualized mammographically. In the management of a palpable breast mass, a negative mammogram must not discourage biopsy of a clinically suspicious lesion. Electronically Signed By: Mo lopez/ana:12/26/2022 11:52:45 letter sent: Normal Exam ACR BI-RADS Category 1: Negative [id number]
== END ==
PROVIDERS: Family Provider Family Medicine; PCP Family Medicine; Referring Provider Family Medicine; Visit Provider Family Medicine
DX: Z12.31 Encounter for screening mammogram for malignant neoplasm of breast (principal)
CPT/HCPCS: 77063; 77067

== ENCOUNTER 2023-01-01 12:45 | Outpatient (RCR) | payer OTHER, SELFPAY ==
--- NOTE | 2022-09-15 14:38 | PT.OIE ---
Current Diagnoses Unilateral primary osteoarthritis, right hip (09/15/22) Difficulty in walking, not elsewhere classified (09/15/22) Abnormal posture (09/15/22) Weakness (09/15/22) Encounter for other preprocedural examination (09/15/22) Past Medical History (Last Reviewed 05/07/22 @ 16:58 by René Hartmann DO) Cervical disc disorder at C5-C6 level with radiculopathy Cervical radiculopathy at C7 Cervical stenosis of spinal canal Degenerative joint disease of both hips Depression (~2000) Facet arthropathy, cervical Fractures (~1972) HNP (herniated nucleus pulposus), cervical Osteoarthritis (~2008) Shingles (~2010) Past Surgical History (Last Reviewed 05/07/22 @ 16:58 by René Hartmann DO) Anesthesia History of thumb surgery (~07/2013) Visit Care Team Role Provider Type Other Providers Specialty: Address: Phone: Fax: Email: Roxanna Mcneal MD Family Provider Physician Primary Care Provider Specialty: Family Practice Address: [address] [place] [address], [address] Email: [email or web address] Peña Henderson PA-C Attending Provider Non-Staff Referring Provider Specialty: Medical Address: [address] [place] [address] , [place], [address] Email: Physical Therapy Initial Evaluation PT-OP-A Visit Information Start: 09/11/22 18:48 Freq: Status: Active Protocol: Document 09/15/22 09:59 [facility] (Rec: 09/15/22 10:48 [facility] [id number]) Out-Patient Physical Therapy Visit Information Visit Information Visit Type Initial Evaluation Visit Start Time 10:00 Visit Stop Time 10:45 Total Visit Minutes 45 Visit Number 1 Number of DENTAL TECH Visits 0 Precautions Precautions pt notes she was told to avoid prone laying, figure 4 position, pivots on RLE PT-OP-B Current Condition Start: 09/11/22 18:48 Freq: Status: Active Protocol: Document 09/15/22 09:59 [facility] (Rec: 09/15/22 10:48 [facility] [id number]) Current Condition History of Current Condition Onset Date 08/27/22 Current Complaints R ant Navjot History of Current Condition Pt had R ant NAVJOT on aug 27 2022. Prior to this had hip problems for years and it got worse last fall. MRI showed labral tear w/severe arthritis . It was popping and cracking and she couldn't walked even small distances w/o signficant pain. She has been doing well getting dressed except socks and shoes . Showering goes okay. She has done small walks w/stores or lunch etc. She has a really steep driveway. She has a 2 story home but doens't have to use the downstairs but has done steps step to. Pt has a gym downstairs (bike, treadmill, bench, TRX, weights). 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 Treatment Goals Patient/Caregiver Goals Get back to working out (TRX, hiking, HIIT); put on socks and shoes indep; up/down stairs reciprocally, gardening PT-OP-C Subjective Start: 09/11/22 18:48 Freq: Status: Active Protocol: Document 09/15/22 09:59 [facility] (Rec: 09/15/22 10:48 [facility] [id number]) Patient Questionnaires Lower Extremity Functional Scale LEFS Score 48/80 OP-PT Pain Assessment Location R hip Pain Location Details R buttocks Intensity 3 Description Aching Radiating Location lat leg sore & knee all Variations/Patterns numb lat Pain Aggravating Factors Standing,Sitting,Walking Other Pain Aggravating Factors lifting leg Other Pain Alleviating Factors tylenol at night PT-OP-F Manual Assessment Start: 09/11/22 18:48 Freq: Status: Active Protocol: Document 09/15/22 09:59 [facility] (Rec: 09/15/22 10:48 [facility] [id number]) Manual Assessments Joint Mobility Assessment Joint Mobility Assessment iliac crest higher on R; equal hips Other Manual Assessments Other Manual Assessments scar healing well PT-OP-G Mobility & Gait Start: 09/11/22 18:48 Freq: Status: Active Protocol: Document 09/15/22 09:59 [facility] (Rec: 09/15/22 10:48 [facility] [id number]) OP Mobility Evaluation Bed Mobility Supine to and from Sit indp Transfers Bed to Chair Transfers uses UEs OP Gait Assessment Comments Gait Comments Dec push off on RLE and more pelvis rotation in push off. dec stance time RLE PT-OP-M Strength Start: 09/11/22 18:48 Freq: Status: Active Protocol: Document 09/15/22 09:59 [facility] (Rec: 09/15/22 10:48 [facility] [id number]) Hip Strength Hip Manual Muscle Testing Right Flexion (L2) 3- Fair- Abduction 3+ Fair+ External Rotation 3+ Fair+ Internal Rotation 3+ Fair+ Comments IR/ER tested in neutral; ext not tested d/t precautions Left Flexion (L2) 4 Good External Rotation 4 Good Internal Rotation 4 Good Knee Strength Knee Manual Muscle Testing Right Flexion (S2) 4+ Good+ Extension (L3) 4 Good Left Flexion (S2) 5 Normal Extension (L3) 5 Normal Ankle/Foot Strength Ankle and Foot Manual Muscle Testing Right Dorsiflexion (L4) 5 Normal Plantarflexion (S1) 5 Normal Comments PF tested seatd B Left Dorsiflexion (L4) 5 Normal Plantarflexion (S1) 5 Normal PT-OP-Q Treatments Start: 09/11/22 18:48 Freq: Status: Active Protocol: Document 09/15/22 09:59 [facility] (Rec: 09/15/22 10:48 [facility] [id number]) Cardio Equipment Bicycle (Upright) Duration (Minutes) 6 Resistance 5 Seat Position 6 Therapeutic Exercises Standing Exercises squats Standing Exercise Name mini Side bilateral Reps/Minutes 15 Comments cues for posture and maintaining neutral alignment stairs Standing Exercise Name recip up/down w/rail Side bilateral Reps/Minutes 2x 6 in steps PT-OP-T Assessment and Plan Start: 09/11/22 18:48 Freq: Status: Active Protocol: Document 09/15/22 09:59 [facility] (Rec: 09/15/22 10:48 [facility] [id number]) Physical Therapy Assessment Rehab Potential Rehabilitation Potential Good Evaluation Complexity Number of Personal Factors/Comorbidities 3 or More Number of Body Systems Impaired 4 or More Clinical Presentation at Evaluation Evolving Impairments Impairments Activity Tolerance,Balance, Edema,Functional Activities, Functional Mobility,Gait,Pain, Posture,ROM,Soft Tissue Mobility,Strength Goals strength Short Term Goal (STG) Pt will be indep w/HEP STG Duration 715 Risk Tech Goal (LTG) Pt will score at least 4+/5 on all LE MMT B and at least 3/5 on LPM ot show improved stabiltiy. LTG Duration 11/24/22 walking Short Term Goal (STG) Pt will return to walking at least .75 mile on flat ground w/o AD w/o pain greater than 3 /10. STG Duration 10/13 Risk Tech Goal (LTG) Pt willb e able to hike at least 2 miles on uneven terrain w/o inc pain greater than 2./10 LTG Duration 11/24/22 activity Short Term Goal (STG) Pt will be able to don/doff shoes and socks w/o inc pain. STG Duration 10/11/22 Risk Tech Goal (LTG) Pt will be able to return to gardening and hiking w/o inc pain greater than 1/10 in R hip. LTG Duration 11/24/22 Assessment Summary Assessment Pt presents about 2.5 weeks s/ p R ant NAVJOT w/good pain control and mobility. She hwas been walking w/a SPC and occ w/o. She has dec push off on RLE and has weakness of glutes B along w/R iliac crest that is higher than L and likely contributing ot her pain and cont pain and dysfunction. She is tpically very active and has been unable to work out prior to hip surgery d/t pain so hopes to get back to hiking , gardening, TRX and KANDICE and general workouts. Physical Therapy Plan Frequency and Duration Frequency of Treatment 2x/Week Duration of treatment (weeks) 10 Plan of Care Start Date 09/15/22 Plan of Care End Date 11/24/22 Therapeutic Interventions Therapeutic Interventions Balance Training,Gait Training ,Home Exercise Program,Joint Mobilizations,Manual Therapy, Neuromuscular Re-education, Orthotic/Prosthetic Management ,Patient/Caregiver Education, Self-Care/Home Management,Soft Tissue Mobilization,Taping, Therapeutic Activities, Therapeutic Exercises Modalities Cold Pack/Ice Massage,Electric Stimulation,Hot Packs Next Visit Focus/Plan Next Note Type Treatment Note Next Visit Plan standing abd, bike, uneven surfaces, work on gait mechanics. STM to ITB, quads and HS
--- NOTE | 2022-09-15 14:38 | PT.OPPOC ---
Physical, Occupational & Speech Therapy At [facility] Current Diagnoses Unilateral primary osteoarthritis, right hip (09/15/22) Difficulty in walking, not elsewhere classified (09/15/22) Abnormal posture (09/15/22) Weakness (09/15/22) Encounter for other preprocedural examination (09/15/22) Visit Care Team Role Provider Type Other Providers Specialty: Address: Phone: Fax: Email: Roxanna Mcneal MD Family Provider Physician Primary Care Provider Specialty: Family Practice Address: [address] [place] [address], [facility] [place], [address] Email: [email or web address] Peña Henderson PA-C Attending Provider Non-Staff Referring Provider Specialty: Medical Address: [address] [place], [place] [address], [place], [address] Email: Plan Of Care PT-OP-T Assessment and Plan Start: 09/11/22 18:48 Freq: Status: Active Protocol: Document 09/15/22 09:59 [facility] (Rec: 09/15/22 10:48 [facility] [id number]) Physical Therapy Assessment Rehab Potential Rehabilitation Potential Good Evaluation Complexity Number of Personal Factors/Comorbidities 3 or More Number of Body Systems Impaired 4 or More Clinical Presentation at Evaluation Evolving Impairments Impairments Activity Tolerance,Balance, Edema,Functional Activities, Functional Mobility,Gait,Pain, Posture,ROM,Soft Tissue Mobility,Strength Goals strength Short Term Goal (STG) Pt will be indep w/HEP STG Duration 10/11 Advocacy Director Goal (LTG) Pt will score at least 4+/5 on all LE MMT B and at least 3/5 on LPM ot show improved stabiltiy. LTG Duration 11/24/22 walking Short Term Goal (STG) Pt will return to walking at least .75 mile on flat ground w/o AD w/o pain greater than 3 /10. STG Duration 10/13 Advocacy Director Goal (LTG) Pt willb e able to hike at least 2 miles on uneven terrain w/o inc pain greater than 2./10 LTG Duration 11/24/22 activity Short Term Goal (STG) Pt will be able to don/doff shoes and socks w/o inc pain. STG Duration 10/11/22 Correction Goal (LTG) Pt will be able to return to gardening and hiking w/o inc pain greater than 1/10 in R hip. LTG Duration 11/24/22 Assessment Summary Assessment Pt presents about 2.5 weeks s/ p R ant NAVJOT w/good pain control and mobility. She hwas been walking w/a SPC and occ w/o. She has dec push off on RLE and has weakness of glutes B along w/R iliac crest that is higher than L and likely contributing ot her pain and cont pain and dysfunction. She is tpically very active and has been unable to work out prior to hip surgery d/t pain so hopes to get back to hiking , gardening, TRX and KANDICE and general workouts. Physical Therapy Plan Frequency and Duration Frequency of Treatment 2x/Week Duration of treatment (weeks) 10 Plan of Care Start Date 09/15/22 Plan of Care End Date 11/24/22 Therapeutic Interventions Therapeutic Interventions Balance Training,Gait Training ,Home Exercise Program,Joint Mobilizations,Manual Therapy, Neuromuscular Re-education, Orthotic/Prosthetic Management ,Patient/Caregiver Education, Self-Care/Home Management,Soft Tissue Mobilization,Taping, Therapeutic Activities, Therapeutic Exercises Modalities Cold Pack/Ice Massage,Electric Stimulation,Hot Packs Next Visit Focus/Plan Next Note Type Treatment Note Next Visit Plan standing abd, bike, uneven surfaces, work on gait mechanics. STM to ITB, quads and HS Plan of Care Dates Plan of Care Start Date 09/15/22 Plan of Care End Date 11/24/22 Electronically Signed by: Roxanna Zhong, PT 09/15/22 6745 If you are in agreement with this Plan of Care, please return a signed and dated copy. I have reviewed this Plan of Care and certify that the skilled therapy services above are required to meet the patient?s needs. Physician Signature Date Printed Name and Credentials Clinical Instructor Signature Printed Name and Credentials
--- NOTE | 2022-09-17 11:35 | PT.OTN ---
Current Diagnoses Unilateral primary osteoarthritis, right hip (09/17/22) Difficulty in walking, not elsewhere classified (09/17/22) Abnormal posture (09/17/22) Weakness (09/17/22) Encounter for other preprocedural examination (09/17/22) Physical Therapy Treatment Note PT-OP-A Visit Information Start: 09/11/22 18:48 Freq: Status: Active Protocol: Document 09/17/22 10:46 [facility] (Rec: 09/17/22 11:35 [facility] [id number]) Out-Patient Physical Therapy Visit Information Visit Information Visit Type Treatment Note Visit Start Time 10:48 Visit Stop Time 11:30 Total Visit Minutes 42 Visit Number 2 Number of ALTERATIONS SEWER Visits 0 PT-OP-B Current Condition Start: 09/11/22 18:48 Freq: Status: Active Protocol: Document 09/15/22 09:59 [facility] (Rec: 09/15/22 10:48 [facility] [id number]) Current Condition History of Current Condition Onset Date 08/27/22 Current Complaints R ant Khai History of Current Condition Pt had R ant KHAI on aug 27 2022. Prior to this had hip problems for years and it got worse last fall. MRI showed labral tear w/severe arthritis . It was popping and cracking and she couldn't walked even small distances w/o signficant pain. She has been doing well getting dressed except socks and shoes . Showering goes okay. She has done small walks w/stores or lunch etc. She has a really steep driveway. She has a 2 story home but doens't have to use the downstairs but has done steps step to. Pt has a gym downstairs (bike, treadmill, bench, TRX, weights). 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 Treatment Goals Patient/Caregiver Goals Get back to working out (TRX, hiking, HIIT); put on socks and shoes indep; up/down stairs reciprocally, gardening PT-OP-C Subjective Start: 09/11/22 18:48 Freq: Status: Active Protocol: Document 09/17/22 10:46 [facility] (Rec: 09/17/22 11:35 [facility] [id number]) OP-PT Subjective Patient Comments Patient Comments Pt reports she was just tired after eval. She had been only taking 1 celebrex but read the paper and realized she was supposed to take 2 so she change dto that PT-OP-F Manual Assessment Start: 09/11/22 18:48 Freq: Status: Active Protocol: Document 09/15/22 09:59 [facility] (Rec: 09/15/22 10:48 [facility] [id number]) Manual Assessments Joint Mobility Assessment Joint Mobility Assessment iliac crest higher on R; equal hips Other Manual Assessments Other Manual Assessments scar healing well PT-OP-G Mobility & Gait Start: 09/11/22 18:48 Freq: Status: Active Protocol: Document 09/15/22 09:59 [facility] (Rec: 09/15/22 10:48 [facility] [id number]) OP Mobility Evaluation Bed Mobility Supine to and from Sit indp Transfers Bed to Chair Transfers uses UEs OP Gait Assessment Comments Gait Comments Dec push off on RLE and more pelvis rotation in push off. dec stance time RLE PT-OP-M Strength Start: 09/11/22 18:48 Freq: Status: Active Protocol: Document 09/15/22 09:59 [facility] (Rec: 09/15/22 10:48 [facility] [id number]) Hip Strength Hip Manual Muscle Testing Right Flexion (L2) 3- Fair- Abduction 3+ Fair+ External Rotation 3+ Fair+ Internal Rotation 3+ Fair+ Comments IR/ER tested in neutral; ext not tested d/t precautions Left Flexion (L2) 4 Good External Rotation 4 Good Internal Rotation 4 Good Knee Strength Knee Manual Muscle Testing Right Flexion (S2) 4+ Good+ Extension (L3) 4 Good Left Flexion (S2) 5 Normal Extension (L3) 5 Normal Ankle/Foot Strength Ankle and Foot Manual Muscle Testing Right Dorsiflexion (L4) 5 Normal Plantarflexion (S1) 5 Normal Comments PF tested seatd B Left Dorsiflexion (L4) 5 Normal Plantarflexion (S1) 5 Normal PT-OP-Q Treatments Start: 09/11/22 18:48 Freq: Status: Active Protocol: Document 09/17/22 10:46 [facility] (Rec: 09/17/22 11:35 [facility] [id number]) Cardio Equipment Bicycle (Upright) Duration (Minutes) 6 Resistance 7 Seat Position 6 Therapeutic Exercises Standing Exercises step down Side right Equipment Used 4 in step Reps/Minutes 10 Comments L rail step up Standing Exercise Name alt march Side bilateral Equipment Used 6 in step Reps/Minutes 10 Comments 2 fingers on one rail squats Standing Exercise Name partial 60% squat Side bilateral Reps/Minutes 15 Comments cues for posture and maintaining neutral alignment Manual Therapy Treatment Soft Tissue Mobilization thigh Body Location R Mobilization Type Rolling,Strumming Intensity/Depth Moderate Comments Adductors, HS, ITB, VL FM w/ occilations & TKE and AAROM HS stretch PT-OP-T Assessment and Plan Start: 09/11/22 18:48 Freq: Status: Active Protocol: Document 09/17/22 10:46 [facility] (Rec: 09/17/22 11:35 [facility] [id number]) Physical Therapy Assessment Goals strength Short Term Goal (STG) Pt will be indep w/HEP STG Duration 10/11 Longterm Goal (LTG) Pt will score at least 4+/5 on all LE MMT B and at least 3/5 on LPM ot show improved stabiltiy. LTG Duration 11/24/22 walking Short Term Goal (STG) Pt will return to walking at least .75 mile on flat ground w/o AD w/o pain greater than 3 /10. STG Duration 10/13 Nurse Reviewer Goal (LTG) Pt willb e able to hike at least 2 miles on uneven terrain w/o inc pain greater than 2./10 LTG Duration 11/24/22 activity Short Term Goal (STG) Pt will be able to don/doff shoes and socks w/o inc pain. STG Duration 10/11/22 Nurse Reviewer Goal (LTG) Pt will be able to return to gardening and hiking w/o inc pain greater than 1/10 in R hip. LTG Duration 11/24/22 Assessment Summary Assessment Pt did well with exercises and was abl eto get deeper squat depth. Pt had initial tenderness to mm of thigh but that did improve w/manual techniques which should imrpove femoral gliding Physical Therapy Plan Frequency and Duration Frequency of Treatment 2x/Week Duration of treatment (weeks) 10 Plan of Care Start Date 09/15/22 Plan of Care End Date 11/24/22 Next Visit Focus/Plan Next Note Type Treatment Note Next Visit Plan standing abd, bike, uneven surfaces, work on gait mechanics. STM to ITB, quads and HS
--- NOTE | 2022-09-22 10:52 | PT.OTN ---
Current Diagnoses Unilateral primary osteoarthritis, right hip (09/22/22) Difficulty in walking, not elsewhere classified (09/22/22) Abnormal posture (09/22/22) Weakness (09/22/22) Encounter for other preprocedural examination (09/22/22) Physical Therapy Treatment Note PT-OP-A Visit Information Start: 09/11/22 18:48 Freq: Status: Active Protocol: Document 09/22/22 10:00 [facility] (Rec: 09/22/22 10:51 [facility] [id number]) Out-Patient Physical Therapy Visit Information Visit Information Visit Type Treatment Note Visit Start Time 10:01 Visit Stop Time 10:45 Total Visit Minutes 44 Visit Number 3 Number of PUTTY MAKER Visits 0 PT-OP-B Current Condition Start: 09/11/22 18:48 Freq: Status: Active Protocol: Document 09/15/22 09:59 [facility] (Rec: 09/15/22 10:48 [facility] [id number]) Current Condition History of Current Condition Onset Date 08/27/22 Current Complaints R ant Khai History of Current Condition Pt had R ant KHAI on aug 27 2022. Prior to this had hip problems for years and it got worse last fall. MRI showed labral tear w/severe arthritis . It was popping and cracking and she couldn't walked even small distances w/o signficant pain. She has been doing well getting dressed except socks and shoes . Showering goes okay. She has done small walks w/stores or lunch etc. She has a really steep driveway. She has a 2 story home but doens't have to use the downstairs but has done steps step to. Pt has a gym downstairs (bike, treadmill, bench, TRX, weights). 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 Treatment Goals Patient/Caregiver Goals Get back to working out (TRX, hiking, HIIT); put on socks and shoes indep; up/down stairs reciprocally, gardening PT-OP-C Subjective Start: 09/11/22 18:48 Freq: Status: Active Protocol: Document 09/22/22 10:00 [facility] (Rec: 09/22/22 10:51 [facility] [id number]) OP-PT Subjective Patient Comments Patient Comments Pt reports she was helping bring things to her as he was liftingthe deck so did more walking. She iced, elevated and puton compression socks. She feels fine today. PT-OP-F Manual Assessment Start: 09/11/22 18:48 Freq: Status: Active Protocol: Document 09/15/22 09:59 [facility] (Rec: 09/15/22 10:48 [facility] [id number]) Manual Assessments Joint Mobility Assessment Joint Mobility Assessment iliac crest higher on R; equal hips Other Manual Assessments Other Manual Assessments scar healing well PT-OP-G Mobility & Gait Start: 09/11/22 18:48 Freq: Status: Active Protocol: Document 09/15/22 09:59 [facility] (Rec: 09/15/22 10:48 [facility] [id number]) OP Mobility Evaluation Bed Mobility Supine to and from Sit indp Transfers Bed to Chair Transfers uses UEs OP Gait Assessment Comments Gait Comments Dec push off on RLE and more pelvis rotation in push off. dec stance time RLE PT-OP-M Strength Start: 09/11/22 18:48 Freq: Status: Active Protocol: Document 09/15/22 09:59 [facility] (Rec: 09/15/22 10:48 [facility] [id number]) Hip Strength Hip Manual Muscle Testing Right Flexion (L2) 3- Fair- Abduction 3+ Fair+ External Rotation 3+ Fair+ Internal Rotation 3+ Fair+ Comments IR/ER tested in neutral; ext not tested d/t precautions Left Flexion (L2) 4 Good External Rotation 4 Good Internal Rotation 4 Good Knee Strength Knee Manual Muscle Testing Right Flexion (S2) 4+ Good+ Extension (L3) 4 Good Left Flexion (S2) 5 Normal Extension (L3) 5 Normal Ankle/Foot Strength Ankle and Foot Manual Muscle Testing Right Dorsiflexion (L4) 5 Normal Plantarflexion (S1) 5 Normal Comments PF tested seatd B Left Dorsiflexion (L4) 5 Normal Plantarflexion (S1) 5 Normal PT-OP-Q Treatments Start: 09/11/22 18:48 Freq: Status: Active Protocol: Document 09/22/22 10:00 [facility] (Rec: 09/22/22 10:51 [facility] [id number]) Cardio Equipment Bicycle (Upright) Duration (Minutes) 6 Resistance 9 Seat Position 6 Gym Equipment Shuttle Recovery Unilateral Squats Resistance 37# Shuttle Recovery Platform Stable Reps/Time 12 Shuttle Balance red clips Comments fwd & side: WBOS & NBOS (head turns Fwd) fwd: staggered stance B Therapeutic Exercises Standing Exercises sidesteps Side bilateral Equipment Used orange band Reps/Minutes 20ft ea step down Side right Equipment Used 4 in step; 6 in step Reps/Minutes 1. 6 2. 10 Comments L rail step up Standing Exercise Name alt march Side bilateral Equipment Used 6 in step Reps/Minutes 10 Comments rail prn Manual Therapy Treatment Soft Tissue Mobilization thigh Body Location R Mobilization Type Rolling,Strumming Intensity/Depth Moderate Comments HS, ITB (hands on and plunger, VMO, gentle rock btwn IR/ER & AAROm HS stretch PT-OP-T Assessment and Plan Start: 09/11/22 18:48 Freq: Status: Active Protocol: Document 09/22/22 10:00 [facility] (Rec: 09/22/22 10:51 [facility] [id number]) Physical Therapy Assessment Goals strength Short Term Goal (STG) Pt will be indep w/HEP STG Duration 10/11 [facility] Goal (LTG) Pt will score at least 4+/5 on all LE MMT B and at least 3/5 on LPM ot show improved stabiltiy. LTG Duration 11/24/22 walking Short Term Goal (STG) Pt will return to walking at least .75 mile on flat ground w/o AD w/o pain greater than 3 /10. STG Duration 10/13 [facility] Goal (LTG) Pt willb e able to hike at least 2 miles on uneven terrain w/o inc pain greater than 2./10 LTG Duration 11/24/22 activity Short Term Goal (STG) Pt will be able to don/doff shoes and socks w/o inc pain. STG Duration 10/11/22 Sexual Assault Counsellor Goal (LTG) Pt will be able to return to gardening and hiking w/o inc pain greater than 1/10 in R hip. LTG Duration 11/24/22 Assessment Summary Assessment Pt is showing much imrpoved ability to do step ups and do strengthening activities. Plan to change her to 1x/week as she is doing well with exercsies and plan to advance her week to week. Encouraged to slowly get into walking Physical Therapy Plan Frequency and Duration Frequency of Treatment 2x/Week Duration of treatment (weeks) 10 Plan of Care Start Date 09/15/22 Plan of Care End Date 11/24/22 Next Visit Focus/Plan Next Note Type Treatment Note Next Visit Plan standing abd, bike, uneven surfaces, work on gait mechanics. STM to ITB, quads and HS
--- NOTE | 2022-10-02 10:25 | PT.OTN ---
Current Diagnoses Unilateral primary osteoarthritis, right hip (10/02/22) Difficulty in walking, not elsewhere classified (10/02/22) Abnormal posture (10/02/22) Weakness (10/02/22) Encounter for other preprocedural examination (10/02/22) Physical Therapy Treatment Note PT-OP-A Visit Information Start: 09/11/22 18:48 Freq: Status: Active Protocol: Document 10/02/22 09:05 [facility] (Rec: 10/02/22 10:25 [facility] [id number]) Out-Patient Physical Therapy Visit Information Visit Information Visit Type Treatment Note Visit Start Time 09:03 Visit Stop Time 09:48 Total Visit Minutes 45 Visit Number 4 Number of TECHNICIANS AND TRADES WORKERS Visits 0 PT-OP-B Current Condition Start: 09/11/22 18:48 Freq: Status: Active Protocol: Document 09/15/22 09:59 [facility] (Rec: 09/15/22 10:48 [facility] [id number]) Current Condition History of Current Condition Onset Date 08/27/22 Current Complaints R ant Khai History of Current Condition Pt had R ant KHAI on aug 27 2022. Prior to this had hip problems for years and it got worse last fall. MRI showed labral tear w/severe arthritis . It was popping and cracking and she couldn't walked even small distances w/o signficant pain. She has been doing well getting dressed except socks and shoes . Showering goes okay. She has done small walks w/stores or lunch etc. She has a really steep driveway. She has a 2 story home but doens't have to use the downstairs but has done steps step to. Pt has a gym downstairs (bike, treadmill, bench, TRX, weights). 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 Treatment Goals Patient/Caregiver Goals Get back to working out (TRX, hiking, HIIT); put on socks and shoes indep; up/down stairs reciprocally, gardening PT-OP-C Subjective Start: 09/11/22 18:48 Freq: Status: Active Protocol: Document 10/02/22 09:05 [facility] (Rec: 10/02/22 10:25 [facility] [id number]) OP-PT Subjective Patient Comments Patient Comments Pt reports she went back to work yesterday and felt okay and even had enough energy after. PT-OP-F Manual Assessment Start: 09/11/22 18:48 Freq: Status: Active Protocol: Document 09/15/22 09:59 [facility] (Rec: 09/15/22 10:48 [facility] [id number]) Manual Assessments Joint Mobility Assessment Joint Mobility Assessment iliac crest higher on R; equal hips Other Manual Assessments Other Manual Assessments scar healing well PT-OP-G Mobility & Gait Start: 09/11/22 18:48 Freq: Status: Active Protocol: Document 09/15/22 09:59 [facility] (Rec: 09/15/22 10:48 [facility] [id number]) OP Mobility Evaluation Bed Mobility Supine to and from Sit indp Transfers Bed to Chair Transfers uses UEs OP Gait Assessment Comments Gait Comments Dec push off on RLE and more pelvis rotation in push off. dec stance time RLE PT-OP-M Strength Start: 09/11/22 18:48 Freq: Status: Active Protocol: Document 09/15/22 09:59 [facility] (Rec: 09/15/22 10:48 [facility] [id number]) Hip Strength Hip Manual Muscle Testing Right Flexion (L2) 3- Fair- Abduction 3+ Fair+ External Rotation 3+ Fair+ Internal Rotation 3+ Fair+ Comments IR/ER tested in neutral; ext not tested d/t precautions Left Flexion (L2) 4 Good External Rotation 4 Good Internal Rotation 4 Good Knee Strength Knee Manual Muscle Testing Right Flexion (S2) 4+ Good+ Extension (L3) 4 Good Left Flexion (S2) 5 Normal Extension (L3) 5 Normal Ankle/Foot Strength Ankle and Foot Manual Muscle Testing Right Dorsiflexion (L4) 5 Normal Plantarflexion (S1) 5 Normal Comments PF tested seatd B Left Dorsiflexion (L4) 5 Normal Plantarflexion (S1) 5 Normal PT-OP-Q Treatments Start: 09/11/22 18:48 Freq: Status: Active Protocol: Document 10/02/22 09:05 [facility] (Rec: 10/02/22 10:25 [facility] [id number]) Cardio Equipment Bicycle (Upright) Duration (Minutes) 6 Resistance 9 Seat Position 6 Therapeutic Exercises Standing Exercises step down Side right Equipment Used 6 in step Reps/Minutes 10 Comments L rail Manual Therapy Treatment Soft Tissue Mobilization MFR Body Location R scar stabilized and mFR around scar Mobilization Type Myofascial Release hip flexor Body Location R iliacus & abdomen Mobilization Type Sustained Pressure Comments w/AAROM hip flex thigh Body Location R Mobilization Type Myofascial Release,Rolling, Strumming,Sustained Pressure Comments circumfrential, add, quads FM w/IR small range and AAROM flex Neuro Re-Education Treatment Balance Activities SLS Comments R in mirror Other Activities post dep Details R sustained hold to COI pelvis PT-OP-T Assessment and Plan Start: 09/11/22 18:48 Freq: Status: Active Protocol: Document 10/02/22 09:05 [facility] (Rec: 10/02/22 10:25 [facility] [id number]) Physical Therapy Assessment Goals strength Short Term Goal (STG) Pt will be indep w/HEP STG Duration 10/11 Superintendent Schools Goal (LTG) Pt will score at least 4+/5 on all LE MMT B and at least 3/5 on LPM ot show improved stabiltiy. LTG Duration 11/24/22 walking Short Term Goal (STG) Pt will return to walking at least .75 mile on flat ground w/o AD w/o pain greater than 3 /10. STG Duration 10/13 Skilled Nursing Goal (LTG) Pt willb e able to hike at least 2 miles on uneven terrain w/o inc pain greater than 2./10 LTG Duration 11/24/22 activity Short Term Goal (STG) Pt will be able to don/doff shoes and socks w/o inc pain. STG Duration 10/11/22 Superintendent Schools Goal (LTG) Pt will be able to return to gardening and hiking w/o inc pain greater than 1/10 in R hip. LTG Duration 11/24/22 Assessment Summary Assessment Pt had improved full leg contact on table during rebecca test after manual. She still has difficulty w/wt acceptance and requires cues and mirror for wt acceptance on RLE especailly w/step down Physical Therapy Plan Frequency and Duration Frequency of Treatment 2x/Week Duration of treatment (weeks) 10 Plan of Care Start Date 09/15/22 Plan of Care End Date 11/24/22 Next Visit Focus/Plan Next Note Type Treatment Note Next Visit Plan standing abd, bike, uneven surfaces, work on gait mechanics. work on wt acceptance STM to ITB, quads and HS, hip flexor/abdomen
--- NOTE | 2022-10-07 17:39 | PT.OTN ---
Current Diagnoses Unilateral primary osteoarthritis, right hip (10/07/22) Difficulty in walking, not elsewhere classified (10/07/22) Abnormal posture (10/07/22) Weakness (10/07/22) Encounter for other preprocedural examination (10/07/22) Physical Therapy Treatment Note PT-OP-A Visit Information Start: 09/11/22 18:48 Freq: Status: Active Protocol: Document 10/07/22 13:22 [facility] (Rec: 10/07/22 17:39 [facility] [id number]) Out-Patient Physical Therapy Visit Information Visit Information Visit Type Treatment Note Visit Start Time 14:20 Visit Stop Time 15:00 Total Visit Minutes 40 Visit Number 5 Number of SPECIFICATIONS CHECKER Visits 0 PT-OP-B Current Condition Start: 09/11/22 18:48 Freq: Status: Active Protocol: Document 09/15/22 09:59 [facility] (Rec: 09/15/22 10:48 [facility] [id number]) Current Condition History of Current Condition Onset Date 08/27/22 Current Complaints R ant Khai History of Current Condition Pt had R ant KHAI on aug 27 2022. Prior to this had hip problems for years and it got worse last fall. MRI showed labral tear w/severe arthritis . It was popping and cracking and she couldn't walked even small distances w/o signficant pain. She has been doing well getting dressed except socks and shoes . Showering goes okay. She has done small walks w/stores or lunch etc. She has a really steep driveway. She has a 2 story home but doens't have to use the downstairs but has done steps step to. Pt has a gym downstairs (bike, treadmill, bench, TRX, weights). 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 Treatment Goals Patient/Caregiver Goals Get back to working out (TRX, hiking, HIIT); put on socks and shoes indep; up/down stairs reciprocally, gardening PT-OP-C Subjective Start: 09/11/22 18:48 Freq: Status: Active Protocol: Document 10/07/22 13:22 [facility] (Rec: 10/07/22 17:39 [facility] [id number]) OP-PT Subjective Patient Comments Patient Comments Pt reports she has been doing a lot of stairs at home. R knee still occ painful. notes most tightness in ant R hip PT-OP-F Manual Assessment Start: 09/11/22 18:48 Freq: Status: Active Protocol: Document 09/15/22 09:59 [facility] (Rec: 09/15/22 10:48 [facility] [id number]) Manual Assessments Joint Mobility Assessment Joint Mobility Assessment iliac crest higher on R; equal hips Other Manual Assessments Other Manual Assessments scar healing well PT-OP-G Mobility & Gait Start: 09/11/22 18:48 Freq: Status: Active Protocol: Document 09/15/22 09:59 [facility] (Rec: 09/15/22 10:48 [facility] [id number]) OP Mobility Evaluation Bed Mobility Supine to and from Sit indp Transfers Bed to Chair Transfers uses UEs OP Gait Assessment Comments Gait Comments Dec push off on RLE and more pelvis rotation in push off. dec stance time RLE PT-OP-M Strength Start: 09/11/22 18:48 Freq: Status: Active Protocol: Document 09/15/22 09:59 [facility] (Rec: 09/15/22 10:48 [facility] [id number]) Hip Strength Hip Manual Muscle Testing Right Flexion (L2) 3- Fair- Abduction 3+ Fair+ External Rotation 3+ Fair+ Internal Rotation 3+ Fair+ Comments IR/ER tested in neutral; ext not tested d/t precautions Left Flexion (L2) 4 Good External Rotation 4 Good Internal Rotation 4 Good Knee Strength Knee Manual Muscle Testing Right Flexion (S2) 4+ Good+ Extension (L3) 4 Good Left Flexion (S2) 5 Normal Extension (L3) 5 Normal Ankle/Foot Strength Ankle and Foot Manual Muscle Testing Right Dorsiflexion (L4) 5 Normal Plantarflexion (S1) 5 Normal Comments PF tested seatd B Left Dorsiflexion (L4) 5 Normal Plantarflexion (S1) 5 Normal PT-OP-Q Treatments Start: 09/11/22 18:48 Freq: Status: Active Protocol: Document 10/07/22 13:22 [facility] (Rec: 10/07/22 17:39 [facility] [id number]) Therapeutic Exercises Supine Exercises rebecca test Supine Exercise Name L KTC RLE quad set Reps/Minutes 1 min total Standing Exercises sidesteps Side bilateral Equipment Used orange band Reps/Minutes 20ft x2 ea step down Standing Exercise Name cues for slow and controlled Side right Equipment Used 6 in step Reps/Minutes 12 Comments no rail Manual Therapy Treatment Soft Tissue Mobilization hip flexor Body Location R iliacus Mobilization Type Sustained Pressure Comments w/heel slides thigh Body Location R Mobilization Type Myofascial Release,Rolling, Strumming,Sustained Pressure Comments HS w/AAROM flex, active HS stretch, ITB w/AAROm flex Neuro Re-Education Treatment Balance Activities bosu Comments 1. step ups x10 B 2. lat step ups x10 B 3. squat blue side x10 hurdles Details 6 Equipment rail prn Reps/Duration 8 Comments fwd w/foam pads btwn SLS Comments R in mirror PT-OP-T Assessment and Plan Start: 09/11/22 18:48 Freq: Status: Active Protocol: Document 10/07/22 13:22 [facility] (Rec: 10/07/22 17:39 [facility] [id number]) Physical Therapy Assessment Goals strength Short Term Goal (STG) Pt will be indep w/HEP STG Duration 10/11 Longterm Goal (LTG) Pt will score at least 4+/5 on all LE MMT B and at least 3/5 on LPM ot show improved stabiltiy. LTG Duration 11/24/22 walking Short Term Goal (STG) Pt will return to walking at least .75 mile on flat ground w/o AD w/o pain greater than 3 /10. STG Duration 10/13 Longterm Goal (LTG) Pt willb e able to hike at least 2 miles on uneven terrain w/o inc pain greater than 2./10 LTG Duration 11/24/22 activity Short Term Goal (STG) Pt will be able to don/doff shoes and socks w/o inc pain. STG Duration 10/11/22 Director Clinical Applications Goal (LTG) Pt will be able to return to gardening and hiking w/o inc pain greater than 1/10 in R hip. LTG Duration 11/24/22 Assessment Summary Assessment Pt did well with exercises but did fatigue more today. She has been back to work last week for 2 days and this week 2 days without excessive inc in pain. She is improving w/ hip flex w/manual treatment. Physical Therapy Plan Frequency and Duration Frequency of Treatment 2x/Week Duration of treatment (weeks) 10 Plan of Care Start Date 09/15/22 Plan of Care End Date 11/24/22 Next Visit Focus/Plan Next Note Type Treatment Note Next Visit Plan uneven surfaces and work towards push off RLE. cont STM R hip flexor & ITB for improved flex
--- NOTE | 2022-10-14 16:44 | PT.OTN ---
Current Diagnoses Unilateral primary osteoarthritis, right hip (10/14/22) Difficulty in walking, not elsewhere classified (10/14/22) Abnormal posture (10/14/22) Weakness (10/14/22) Encounter for other preprocedural examination (10/14/22) Physical Therapy Treatment Note PT-OP-A Visit Information Start: 09/11/22 18:48 Freq: Status: Active Protocol: Document 10/14/22 15:21 [facility] (Rec: 10/14/22 16:44 [facility] [id number]) Out-Patient Physical Therapy Visit Information Visit Information Visit Type Treatment Note Visit Start Time 15:19 Visit Stop Time 16:01 Total Visit Minutes 42 Visit Number 6 Number of SUBCONTRACT ADMINISTRATOR Visits 0 PT-OP-B Current Condition Start: 09/11/22 18:48 Freq: Status: Active Protocol: Document 09/15/22 09:59 [facility] (Rec: 09/15/22 10:48 [facility] [id number]) Current Condition History of Current Condition Onset Date 08/27/22 Current Complaints R ant Khai History of Current Condition Pt had R ant KHAI on aug 27 2022. Prior to this had hip problems for years and it got worse last fall. MRI showed labral tear w/severe arthritis . It was popping and cracking and she couldn't walked even small distances w/o signficant pain. She has been doing well getting dressed except socks and shoes . Showering goes okay. She has done small walks w/stores or lunch etc. She has a really steep driveway. She has a 2 story home but doens't have to use the downstairs but has done steps step to. Pt has a gym downstairs (bike, treadmill, bench, TRX, weights). 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 Treatment Goals Patient/Caregiver Goals Get back to working out (TRX, hiking, HIIT); put on socks and shoes indep; up/down stairs reciprocally, gardening PT-OP-C Subjective Start: 09/11/22 18:48 Freq: Status: Active Protocol: Document 10/14/22 15:21 [facility] (Rec: 10/14/22 16:44 [facility] [id number]) OP-PT Subjective Patient Comments Patient Comments Pt reports she did 1.5 miles and felt just tightness and tired after and felt fine today after walk yesterday. Plans to walk again today. Saw MD and is to avoid hyperext way behind and ER still PT-OP-F Manual Assessment Start: 09/11/22 18:48 Freq: Status: Active Protocol: Document 09/15/22 09:59 [facility] (Rec: 09/15/22 10:48 [facility] [id number]) Manual Assessments Joint Mobility Assessment Joint Mobility Assessment iliac crest higher on R; equal hips Other Manual Assessments Other Manual Assessments scar healing well PT-OP-G Mobility & Gait Start: 09/11/22 18:48 Freq: Status: Active Protocol: Document 09/15/22 09:59 [facility] (Rec: 09/15/22 10:48 [facility] [id number]) OP Mobility Evaluation Bed Mobility Supine to and from Sit indp Transfers Bed to Chair Transfers uses UEs OP Gait Assessment Comments Gait Comments Dec push off on RLE and more pelvis rotation in push off. dec stance time RLE PT-OP-M Strength Start: 09/11/22 18:48 Freq: Status: Active Protocol: Document 09/15/22 09:59 [facility] (Rec: 09/15/22 10:48 [facility] [id number]) Hip Strength Hip Manual Muscle Testing Right Flexion (L2) 3- Fair- Abduction 3+ Fair+ External Rotation 3+ Fair+ Internal Rotation 3+ Fair+ Comments IR/ER tested in neutral; ext not tested d/t precautions Left Flexion (L2) 4 Good External Rotation 4 Good Internal Rotation 4 Good Knee Strength Knee Manual Muscle Testing Right Flexion (S2) 4+ Good+ Extension (L3) 4 Good Left Flexion (S2) 5 Normal Extension (L3) 5 Normal Ankle/Foot Strength Ankle and Foot Manual Muscle Testing Right Dorsiflexion (L4) 5 Normal Plantarflexion (S1) 5 Normal Comments PF tested seatd B Left Dorsiflexion (L4) 5 Normal Plantarflexion (S1) 5 Normal PT-OP-Q Treatments Start: 09/11/22 18:48 Freq: Status: Active Protocol: Document 10/14/22 15:21 [facility] (Rec: 10/14/22 16:44 [facility] [id number]) Cardio Equipment Elliptical Duration (Minutes) 5 Resistance 2 Therapeutic Exercises Supine Exercises bridge Side bilateral Reps/Minutes 15 sec x4 Standing Exercises lunge Standing Exercise Name walking Side bilateral Reps/Minutes 50ft Comments cues no lat hip shear on R stretch Side right Reps/Minutes 30 sec Manual Therapy Treatment Soft Tissue Mobilization hip Body Location R piriformis & glutes Mobilization Type Sustained Pressure Intensity/Depth Moderate Comments w/gentle c/r in neutral MFR Body Location R scar Mobilization Type Myofascial Release Comments w/heel slide & dycem thigh Body Location R quad Mobilization Type Myofascial Release,Rolling, Strumming,Sustained Pressure Body Position Prone Comments w/knee flex Joint Mobilizations hip Joint L on axis ER FM Comments manual faciltiation at end range innominate Joint L caudal and ER sacrum Joint caudal and R UPA FM PT-OP-T Assessment and Plan Start: 09/11/22 18:48 Freq: Status: Active Protocol: Document 10/14/22 15:21 [facility] (Rec: 10/14/22 16:44 [facility] [id number]) Physical Therapy Assessment Goals strength Short Term Goal (STG) Pt will be indep w/HEP STG Duration 10/11 Residential Goal (LTG) Pt will score at least 4+/5 on all LE MMT B and at least 3/5 on LPM ot show improved stabiltiy. LTG Duration 11/24/22 walking Short Term Goal (STG) Pt will return to walking at least .75 mile on flat ground w/o AD w/o pain greater than 3 /10. STG Duration 10/13 Residential Goal (LTG) Pt willb e able to hike at least 2 miles on uneven terrain w/o inc pain greater than 2./10 LTG Duration 11/24/22 activity Short Term Goal (STG) Pt will be able to don/doff shoes and socks w/o inc pain. STG Duration 10/11/22 Residential Goal (LTG) Pt will be able to return to gardening and hiking w/o inc pain greater than 1/10 in R hip. LTG Duration 11/24/22 Assessment Summary Assessment Pt did well with exercises today and is pushing off better w/gait. She had uneven pelvis whcih was likely contributing to hip paina nd gait immobility but this was improved after session. Physical Therapy Plan Frequency and Duration Frequency of Treatment 2x/Week Duration of treatment (weeks) 10 Plan of Care Start Date 09/15/22 Plan of Care End Date 11/24/22 Next Visit Focus/Plan Next Note Type Treatment Note Next Visit Plan work core stability exercises
--- NOTE | 2022-10-21 17:32 | PT.OTN ---
Current Diagnoses Unilateral primary osteoarthritis, right hip (10/21/22) Difficulty in walking, not elsewhere classified (10/21/22) Abnormal posture (10/21/22) Weakness (10/21/22) Encounter for other preprocedural examination (10/21/22) Physical Therapy Treatment Note PT-OP-A Visit Information Start: 09/11/22 18:48 Freq: Status: Active Protocol: Document 10/21/22 15:26 [facility] (Rec: 10/21/22 17:32 [facility] [id number]) Out-Patient Physical Therapy Visit Information Visit Information Visit Type Treatment Note Visit Note Student PT Rashmi Barrera participated in treatment session w/PT direct supervision Visit Start Time 15:16 Visit Stop Time 16:00 Total Visit Minutes 44 Visit Number 7 Number of CUTTING MACHINE OPERATOR Visits 0 PT-OP-B Current Condition Start: 09/11/22 18:48 Freq: Status: Active Protocol: Document 09/15/22 09:59 [facility] (Rec: 09/15/22 10:48 [facility] [id number]) Current Condition History of Current Condition Onset Date 08/27/22 Current Complaints R ant Khai History of Current Condition Pt had R ant KHAI on aug 27 2022. Prior to this had hip problems for years and it got worse last fall. MRI showed labral tear w/severe arthritis . It was popping and cracking and she couldn't walked even small distances w/o signficant pain. She has been doing well getting dressed except socks and shoes . Showering goes okay. She has done small walks w/stores or lunch etc. She has a really steep driveway. She has a 2 story home but doens't have to use the downstairs but has done steps step to. Pt has a gym downstairs (bike, treadmill, bench, TRX, weights). 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 Treatment Goals Patient/Caregiver Goals Get back to working out (TRX, hiking, HIIT); put on socks and shoes indep; up/down stairs reciprocally, gardening PT-OP-C Subjective Start: 09/11/22 18:48 Freq: Status: Active Protocol: Document 10/21/22 15:26 [facility] (Rec: 10/21/22 17:32 [facility] [id number]) OP-PT Subjective Patient Comments Patient Comments Pt reports she walked about 2 miles at [facility]. She went half way then turned around. Her back has been a little sore. PT-OP-F Manual Assessment Start: 09/11/22 18:48 Freq: Status: Active Protocol: Document 09/15/22 09:59 [facility] (Rec: 09/15/22 10:48 [facility] [id number]) Manual Assessments Joint Mobility Assessment Joint Mobility Assessment iliac crest higher on R; equal hips Other Manual Assessments Other Manual Assessments scar healing well PT-OP-G Mobility & Gait Start: 09/11/22 18:48 Freq: Status: Active Protocol: Document 09/15/22 09:59 [facility] (Rec: 09/15/22 10:48 [facility] [id number]) OP Mobility Evaluation Bed Mobility Supine to and from Sit indp Transfers Bed to Chair Transfers uses UEs OP Gait Assessment Comments Gait Comments Dec push off on RLE and more pelvis rotation in push off. dec stance time RLE PT-OP-M Strength Start: 09/11/22 18:48 Freq: Status: Active Protocol: Document 09/15/22 09:59 [facility] (Rec: 09/15/22 10:48 [facility] [id number]) Hip Strength Hip Manual Muscle Testing Right Flexion (L2) 3- Fair- Abduction 3+ Fair+ External Rotation 3+ Fair+ Internal Rotation 3+ Fair+ Comments IR/ER tested in neutral; ext not tested d/t precautions Left Flexion (L2) 4 Good External Rotation 4 Good Internal Rotation 4 Good Knee Strength Knee Manual Muscle Testing Right Flexion (S2) 4+ Good+ Extension (L3) 4 Good Left Flexion (S2) 5 Normal Extension (L3) 5 Normal Ankle/Foot Strength Ankle and Foot Manual Muscle Testing Right Dorsiflexion (L4) 5 Normal Plantarflexion (S1) 5 Normal Comments PF tested seatd B Left Dorsiflexion (L4) 5 Normal Plantarflexion (S1) 5 Normal PT-OP-Q Treatments Start: 09/11/22 18:48 Freq: Status: Active Protocol: Document 10/21/22 15:26 [facility] (Rec: 10/21/22 17:32 [facility] [id number]) Therapeutic Exercises Other Exercises planks Other Exercise Name forearm and feet Side bilateral Reps/Minutes 30 sec quadruped Other Exercise Name bird dogs Side bilateral Reps/Minutes 2x10 Manual Therapy Treatment Soft Tissue Mobilization hip flexor Body Location R iliacus Mobilization Type Sustained Pressure Comments w/AAROM flex thigh Body Location R HS Mobilization Type Myofascial Release,Rolling, Strumming,Sustained Pressure Comments w/hip flex Joint Mobilizations lumbar Comments L1, L2, L4, L5 transverse L FM w/ant elevation innominate Comments R inf pub mob Neuro Re-Education Treatment Balance Activities bosu Comments 1. step ups w/alt may x10 B 2. lat step ups w/alt may x10 B 3. squat blue side x10 4. fwd lunge (R knee under hip to avoid hip ext when RLE back) x10 B Other Activities ant elevation Comments R ant w/irridation from RLE traction progressed to w/LE progressed to COI w/ dissociation of pelvis from hip post dep Comments 1.R sustained hold to COI pelvis progressed to sustained hold w/LE pattern 2 prolonged holds PT-OP-T Assessment and Plan Start: 09/11/22 18:48 Freq: Status: Active Protocol: Document 10/21/22 15:26 [facility] (Rec: 10/21/22 17:32 [facility] [id number]) Physical Therapy Assessment Goals strength Short Term Goal (STG) Pt will be indep w/HEP STG Duration 10/11 Barn And Property Manager Goal (LTG) Pt will score at least 4+/5 on all LE MMT B and at least 3/5 on LPM ot show improved stabiltiy. LTG Duration 11/24/22 walking Short Term Goal (STG) Pt will return to walking at least .75 mile on flat ground w/o AD w/o pain greater than 3 /10. STG Duration 10/13 Barn And Property Manager Goal (LTG) Pt willb e able to hike at least 2 miles on uneven terrain w/o inc pain greater than 2./10 LTG Duration 11/24/22 activity Short Term Goal (STG) Pt will be able to don/doff shoes and socks w/o inc pain. STG Duration 10/11/22 Barn And Property Manager Goal (LTG) Pt will be able to return to gardening and hiking w/o inc pain greater than 1/10 in R hip. LTG Duration 11/24/22 Assessment Summary Assessment Pt did well with exercises but did need cues throughout for posture and glute activiation. She had about 5 deg improved hip flex after manual but is still limited. Physical Therapy Plan Frequency and Duration Frequency of Treatment 2x/Week Duration of treatment (weeks) 10 Plan of Care Start Date 09/15/22 Plan of Care End Date 11/24/22 Next Visit Focus/Plan Next Note Type Treatment Note Next Visit Plan work core stability exercises & ability for hip flex
--- NOTE | 2022-11-12 17:47 | PT.OTN ---
Current Diagnoses Unilateral primary osteoarthritis, right hip (11/12/22) Difficulty in walking, not elsewhere classified (11/12/22) Abnormal posture (11/12/22) Weakness (11/12/22) Encounter for other preprocedural examination (11/12/22) Physical Therapy Treatment Note PT-OP-A Visit Information Start: 09/11/22 18:48 Freq: Status: Active Protocol: Document 11/12/22 16:56 [facility] (Rec: 11/12/22 17:46 [facility] [id number]) Out-Patient Physical Therapy Visit Information Visit Information Visit Type Progress Note Visit Start Time 16:52 Visit Stop Time 17:32 Total Visit Minutes 40 Visit Number 8 Number of PERSONAL LINES AGENT Visits 0 PT-OP-B Current Condition Start: 09/11/22 18:48 Freq: Status: Active Protocol: Document 09/15/22 09:59 [facility] (Rec: 09/15/22 10:48 [facility] [id number]) Current Condition History of Current Condition Onset Date 08/27/22 Current Complaints R ant Khai History of Current Condition Pt had R ant KHAI on aug 27 2022. Prior to this had hip problems for years and it got worse last fall. MRI showed labral tear w/severe arthritis . It was popping and cracking and she couldn't walked even small distances w/o signficant pain. She has been doing well getting dressed except socks and shoes . Showering goes okay. She has done small walks w/stores or lunch etc. She has a really steep driveway. She has a 2 story home but doens't have to use the downstairs but has done steps step to. Pt has a gym downstairs (bike, treadmill, bench, TRX, weights). 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 Treatment Goals Patient/Caregiver Goals Get back to working out (TRX, hiking, HIIT); put on socks and shoes indep; up/down stairs reciprocally, gardening PT-OP-C Subjective Start: 09/11/22 18:48 Freq: Status: Active Protocol: Document 11/12/22 16:56 [facility] (Rec: 11/12/22 17:46 [facility] [id number]) OP-PT Subjective Patient Comments Patient Comments Pt reports she has been working out and has walked [place] and done 3 miles on [place] PT-OP-F Manual Assessment Start: 09/11/22 18:48 Freq: Status: Active Protocol: Document 09/15/22 09:59 [facility] (Rec: 09/15/22 10:48 [facility] [id number]) Manual Assessments Joint Mobility Assessment Joint Mobility Assessment iliac crest higher on R; equal hips Other Manual Assessments Other Manual Assessments scar healing well PT-OP-G Mobility & Gait Start: 09/11/22 18:48 Freq: Status: Active Protocol: Document 09/15/22 09:59 [facility] (Rec: 09/15/22 10:48 [facility] [id number]) OP Mobility Evaluation Bed Mobility Supine to and from Sit indp Transfers Bed to Chair Transfers uses UEs OP Gait Assessment Comments Gait Comments Dec push off on RLE and more pelvis rotation in push off. dec stance time RLE PT-OP-J Posture/Palpation/Skin Start: 09/11/22 18:48 Freq: Status: Active Protocol: Document 11/12/22 16:56 [facility] (Rec: 11/12/22 17:46 [facility] [id number]) Posture Evaluation Ca Postural Classification System Lumbar Protective Mechanism Left AP 2 Lumbar Protective Mechanism Right AP 2 Lumbar Protective Mechanism Left PA 3 Lumbar Protective Mechanism Right PA 2 PT-OP-M Strength Start: 09/11/22 18:48 Freq: Status: Active Protocol: Document 11/12/22 16:56 [facility] (Rec: 11/12/22 17:46 [facility] [id number]) Hip Strength Hip Manual Muscle Testing Right Flexion (L2) 4 Good Abduction 4 Good External Rotation 4 Good Internal Rotation 4+ Good+ Comments IR/ER tested in neutral; ext not tested d/t precautions Left Flexion (L2) 5 Normal Abduction 5 Normal External Rotation 5 Normal Internal Rotation 5 Normal Knee Strength Knee Manual Muscle Testing Right Flexion (S2) 5 Normal Extension (L3) 5 Normal Left Flexion (S2) 5 Normal Extension (L3) 5 Normal Ankle/Foot Strength Ankle and Foot Manual Muscle Testing Right Dorsiflexion (L4) 5 Normal Plantarflexion (S1) 5 Normal Left Dorsiflexion (L4) 5 Normal Plantarflexion (S1) 5 Normal PT-OP-Q Treatments Start: 09/11/22 18:48 Freq: Status: Active Protocol: Document 11/12/22 16:56 [facility] (Rec: 11/12/22 17:46 [facility] [id number]) Therapeutic Exercises Supine Exercises isometric Supine Exercise Name BLE press w/DF for core Side bilateral Reps/Minutes 40 sec Standing Exercises sidesteps Standing Exercise Name squat Side bilateral Equipment Used tlingit & haida band at knees Reps/Minutes 20ft Comments cues to slow down and knee alignment Manual Therapy Treatment Soft Tissue Mobilization MFR Body Location R scar Mobilization Type Myofascial Release Comments w/heel slide & plunger thigh Body Location R circumfrential Mobilization Type Myofascial Release,Rolling, Strumming,Sustained Pressure Body Position Supine Comments w/heel slide & AAROM hip flex PT-OP-T Assessment and Plan Start: 09/11/22 18:48 Freq: Status: Active Protocol: Document 11/12/22 16:56 [facility] (Rec: 11/12/22 17:46 [facility] [id number]) Physical Therapy Assessment Goals lifting leg Tandem Mill Roller Goal (LTG) Pt will be able to lift leg up to do shoes or put on tub to shower LTG Duration 12/17 strength Short Term Goal (STG) Pt will be indep w/HEP STG Duration achieved advancing as able Tandem Mill Roller Goal (LTG) Pt will score at least 4+/5 on all LE MMT B and at least 3/5 on LPM ot show improved stabiltiy. 11/12-improved but still limisted LTG Duration 12/10 walking Short Term Goal (STG) Pt will return to walking at least .75 mile on flat ground w/o AD w/o pain greater than 3 /10. STG Duration achieved Tandem Mill Roller Goal (LTG) Pt willb e able to hike at least 2 miles on uneven terrain w/o inc pain greater than 2./10 LTG Duration achieved activity Short Term Goal (STG) Pt will be able to don/doff shoes and socks w/o inc pain. STG Duration achieved Tandem Mill Roller Goal (LTG) Pt will be able to return to gardening and hiking w/o inc pain greater than 1/10 in R hip. 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 She was cahllenged by 2 exercises added today. Pt is making excellent progress w/PT at this time and is moving better and showing more funtional ability but does still have some limitation w/R hip still. C Ont PT over next 4 weeks to address cont deficits to return pt to typical function. Physical Therapy Plan Frequency and Duration Frequency of Treatment 1x/Week Duration of treatment (weeks) 4 Plan of Care Start Date 11/12/22 Plan of Care End Date 12/10/22 Therapeutic Interventions Therapeutic Interventions Balance Training,Gait Training ,Home Exercise Program,Joint Mobilizations,Manual Therapy, Neuromuscular Re-education, Orthotic/Prosthetic Management ,Patient/Caregiver Education, Self-Care/Home Management,Soft Tissue Mobilization,Taping, Therapeutic Activities, Therapeutic Exercises Modalities Cold Pack/Ice Massage,Electric Stimulation,Hot Packs Next Visit Focus/Plan Next Note Type Treatment Note Next Visit Plan work core stability exercises & ability for hip flex
--- NOTE | 2022-11-12 17:47 | PT.OPPOC ---
Physical, Occupational & Speech Therapy At [facility] Current Diagnoses Unilateral primary osteoarthritis, right hip (11/12/22) Difficulty in walking, not elsewhere classified (11/12/22) Abnormal posture (11/12/22) Weakness (11/12/22) Encounter for other preprocedural examination (11/12/22) Visit Care Team Role Provider Type Other Providers Specialty: Address: Phone: Fax: Email: Roxanna Mcneal MD Family Provider Physician Primary Care Provider Specialty: Family Practice Address: [address] [place] [address], [facility] [place], [address] Email: [email or web address] Peña Henderson PA-C Attending Provider Non-Staff Referring Provider Specialty: Medical Address: [address] [place], [place] [address], [place], [address] Email: Plan Of Care PT-OP-T Assessment and Plan Start: 09/11/22 18:48 Freq: Status: Active Protocol: Document 11/12/22 16:56 [facility] (Rec: 11/12/22 17:46 [facility] [id number]) Physical Therapy Assessment Goals lifting leg [facility] Goal (LTG) Pt will be able to lift leg up to do shoes or put on tub to shower LTG Duration 12/17 strength Short Term Goal (STG) Pt will be indep w/HEP STG Duration achieved advancing as able [facility] Goal (LTG) Pt will score at least 4+/5 on all LE MMT B and at least 3/5 on LPM ot show improved stabiltiy. 11/12-improved but still limisted LTG Duration 12/10 walking Short Term Goal (STG) Pt will return to walking at least .75 mile on flat ground w/o AD w/o pain greater than 3 /10. STG Duration achieved Manager Hardware Goal (LTG) Pt willb e able to hike at least 2 miles on uneven terrain w/o inc pain greater than 2./10 LTG Duration achieved activity Short Term Goal (STG) Pt will be able to don/doff shoes and socks w/o inc pain. STG Duration achieved [facility]ci Goal (LTG) Pt will be able to return to gardening and hiking w/o inc pain greater than 1/10 in R hip. 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 She was cahllenged by 2 exercises added today. Pt is making excellent progress w/PT at this time and is moving better and showing more funtional ability but does still have some limitation w/R hip still. C Ont PT over next 4 weeks to address cont deficits to return pt to typical function. Physical Therapy Plan Frequency and Duration Frequency of Treatment 1x/Week Duration of treatment (weeks) 4 Plan of Care Start Date 11/12/22 Plan of Care End Date 12/10/22 Therapeutic Interventions Therapeutic Interventions Balance Training,Gait Training ,Home Exercise Program,Joint Mobilizations,Manual Therapy, Neuromuscular Re-education, Orthotic/Prosthetic Management ,Patient/Caregiver Education, Self-Care/Home Management,Soft Tissue Mobilization,Taping, Therapeutic Activities, Therapeutic Exercises Modalities Cold Pack/Ice Massage,Electric Stimulation,Hot Packs Next Visit Focus/Plan Next Note Type Treatment Note Next Visit Plan work core stability exercises & ability for hip flex Plan of Care Dates Plan of Care Start Date 11/12/22 Plan of Care End Date 12/10/22 Electronically Signed by: Roxanna Zhong, PT 11/12/22 9506 If you are in agreement with this Plan of Care, please return a signed and dated copy. I have reviewed this Plan of Care and certify that the skilled therapy services above are required to meet the patient?s needs. Physician Signature Date Printed Name and Credentials Clinical Instructor Signature Printed Name and Credentials
--- NOTE | 2022-11-19 18:06 | PT.OTN ---
Current Diagnoses Unilateral primary osteoarthritis, right hip (11/19/22) Difficulty in walking, not elsewhere classified (11/19/22) Abnormal posture (11/19/22) Weakness (11/19/22) Encounter for other preprocedural examination (11/19/22) Physical Therapy Treatment Note PT-OP-A Visit Information Start: 09/11/22 18:48 Freq: Status: Active Protocol: Document 11/19/22 18:00 [facility] (Rec: 11/19/22 18:05 [facility] [id number]) Out-Patient Physical Therapy Visit Information Visit Information Visit Type Progress Note Visit Start Time 14:19 Visit Stop Time 15:00 Total Visit Minutes 41 Visit Number 9 Number of CERAMICS TEST ENGINEER Visits 0 PT-OP-B Current Condition Start: 09/11/22 18:48 Freq: Status: Active Protocol: Document 09/15/22 09:59 [facility] (Rec: 09/15/22 10:48 [facility] [id number]) Current Condition History of Current Condition Onset Date 08/27/22 Current Complaints R ant Khai History of Current Condition Pt had R ant KHAI on aug 27 2022. Prior to this had hip problems for years and it got worse last fall. MRI showed labral tear w/severe arthritis . It was popping and cracking and she couldn't walked even small distances w/o signficant pain. She has been doing well getting dressed except socks and shoes . Showering goes okay. She has done small walks w/stores or lunch etc. She has a really steep driveway. She has a 2 story home but doens't have to use the downstairs but has done steps step to. Pt has a gym downstairs (bike, treadmill, bench, TRX, weights). 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 Treatment Goals Patient/Caregiver Goals Get back to working out (TRX, hiking, HIIT); put on socks and shoes indep; up/down stairs reciprocally, gardening PT-OP-C Subjective Start: 09/11/22 18:48 Freq: Status: Active Protocol: Document 11/19/22 18:00 [facility] (Rec: 11/19/22 18:06 [facility] [id number]) OP-PT Subjective Patient Comments Patient Comments Pt has not walked a lot recently d/t being busy but hip is feeling good. has been doign self scar work PT-OP-F Manual Assessment Start: 09/11/22 18:48 Freq: Status: Active Protocol: Document 09/15/22 09:59 [facility] (Rec: 09/15/22 10:48 [facility] [id number]) Manual Assessments Joint Mobility Assessment Joint Mobility Assessment iliac crest higher on R; equal hips Other Manual Assessments Other Manual Assessments scar healing well PT-OP-G Mobility & Gait Start: 09/11/22 18:48 Freq: Status: Active Protocol: Document 09/15/22 09:59 [facility] (Rec: 09/15/22 10:48 [facility] [id number]) OP Mobility Evaluation Bed Mobility Supine to and from Sit indp Transfers Bed to Chair Transfers uses UEs OP Gait Assessment Comments Gait Comments Dec push off on RLE and more pelvis rotation in push off. dec stance time RLE PT-OP-J Posture/Palpation/Skin Start: 09/11/22 18:48 Freq: Status: Active Protocol: Document 11/12/22 16:56 [facility] (Rec: 11/12/22 17:46 [facility] [id number]) Posture Evaluation [facility] Postural Classification System Lumbar Protective Mechanism Left AP 2 Lumbar Protective Mechanism Right AP 2 Lumbar Protective Mechanism Left PA 3 Lumbar Protective Mechanism Right PA 2 PT-OP-M Strength Start: 09/11/22 18:48 Freq: Status: Active Protocol: Document 11/12/22 16:56 [facility] (Rec: 11/12/22 17:46 [facility] [id number]) Hip Strength Hip Manual Muscle Testing Right Flexion (L2) 4 Good Abduction 4 Good External Rotation 4 Good Internal Rotation 4+ Good+ Comments IR/ER tested in neutral; ext not tested d/t precautions Left Flexion (L2) 5 Normal Abduction 5 Normal External Rotation 5 Normal Internal Rotation 5 Normal Knee Strength Knee Manual Muscle Testing Right Flexion (S2) 5 Normal Extension (L3) 5 Normal Left Flexion (S2) 5 Normal Extension (L3) 5 Normal Ankle/Foot Strength Ankle and Foot Manual Muscle Testing Right Dorsiflexion (L4) 5 Normal Plantarflexion (S1) 5 Normal Left Dorsiflexion (L4) 5 Normal Plantarflexion (S1) 5 Normal PT-OP-Q Treatments Start: 09/11/22 18:48 Freq: Status: Active Protocol: Document 11/19/22 18:00 [facility] (Rec: 11/19/22 18:05 [facility] [id number]) Manual Therapy Treatment Soft Tissue Mobilization MFR Body Location R scar Mobilization Type Myofascial Release Comments w/heel slide & plunger hip flexor Body Location R iliacus Mobilization Type Sustained Pressure Comments w/AAROM flex thigh Body Location R circumfrential & HS Mobilization Type Myofascial Release,Rolling, Strumming,Sustained Pressure Body Position Supine Comments w/AROM knee flex/ext Joint Mobilizations hip Joint R inf FM Grade II innominate Comments R flex FM Neuro Re-Education Treatment Other Activities facilitaiton Reps/Duration 3 min Comments supine chop w/RLE flex, add, ER pattern sustained holds ant elevation Reps/Duration 8 min Comments R ant w/irridation from RLE traction progressed to w/LE progressed to COI w/ dissociation of pelvis from hip to dissociation of hip from pelvis to full COI of pattern PT-OP-T Assessment and Plan Start: 09/11/22 18:48 Freq: Status: Active Protocol: Document 11/19/22 18:00 [facility] (Rec: 11/19/22 18:05 [facility] [id number]) Physical Therapy Assessment Goals lifting leg Tire Layer Goal (LTG) Pt will be able to lift leg up to do shoes or put on tub to shower 11/19-still some weakness LTG Duration 01/28 strength Short Term Goal (STG) Pt will be indep w/HEP STG Duration achieved advancing as able Mcc Goal (LTG) Pt will score at least 4+/5 on all LE MMT B and at least 3/5 on LPM ot show improved stabiltiy. 11/12-improved but still limisted LTG Duration 01/28 walking Short Term Goal (STG) Pt will return to walking at least .75 mile on flat ground w/o AD w/o pain greater than 3 /10. STG Duration achieved Tire Layer Goal (LTG) Pt willb e able to hike at least 2 miles on uneven terrain w/o inc pain greater than 2./10 LTG Duration achieved activity Short Term Goal (STG) Pt will be able to don/doff shoes and socks w/o inc pain. STG Duration achieved Tire Layer Goal (LTG) Pt will be able to return to gardening and hiking w/o inc pain greater than 1/10 in R hip. 11/12-some tightness in knees w /squatting LTG Duration 01/28 Assessment Summary Assessment Pt is making excellent progress w/PT. Discussed today following up in 1 month or as needed as pt tries to be indep w/HEP and walking. Pt to see MD mid next month and pt to follow up w/PT if needed after this visit. Physical Therapy Plan Frequency and Duration Frequency of Treatment 3 visits Duration of treatment (weeks) 10 Plan of Care Start Date 11/19/22 Plan of Care End Date 01/28/23 Therapeutic Interventions Therapeutic Interventions Balance Training,Gait Training ,Home Exercise Program,Joint Mobilizations,Manual Therapy, Neuromuscular Re-education, Orthotic/Prosthetic Management ,Patient/Caregiver Education, Self-Care/Home Management,Soft Tissue Mobilization,Taping, Therapeutic Activities, Therapeutic Exercises Modalities Cold Pack/Ice Massage,Electric Stimulation,Hot Packs Next Visit Focus/Plan Next Note Type Treatment Note Next Visit Plan pt to do a few visits as needed to progress HEP and advance as pt is likely cleared from precautions at next MD follow up
--- NOTE | 2022-11-19 18:06 | PT.OPPOC ---
Physical, Occupational & Speech Therapy At [facility] Current Diagnoses Unilateral primary osteoarthritis, right hip (11/19/22) Difficulty in walking, not elsewhere classified (11/19/22) Abnormal posture (11/19/22) Weakness (11/19/22) Encounter for other preprocedural examination (11/19/22) Visit Care Team Role Provider Type Other Providers Specialty: Address: Phone: Fax: Email: Roxanna Mcneal MD Family Provider Physician Primary Care Provider Specialty: Family Practice Address: [address] [place] [address], [facility] [place], [address] Email: [email or web address] Henderson PA-C Attending Provider Non-Staff Referring Provider Specialty: Medical Address: [address] [place], [place] [address], [place], [address] Email: Plan Of Care PT-OP-T Assessment and Plan Start: 09/11/22 18:48 Freq: Status: Active Protocol: Document 11/19/22 18:00 [facility] (Rec: 11/19/22 18:05 [facility] [id number]) Physical Therapy Assessment Goals lifting leg Mcfp Goal (LTG) Pt will be able to lift leg up to do shoes or put on tub to shower 11/19-still some weakness LTG Duration 01/28 strength Short Term Goal (STG) Pt will be indep w/HEP STG Duration achieved advancing as able Oracle Database Analyst Goal (LTG) Pt will score at least 4+/5 on all LE MMT B and at least 3/5 on LPM ot show improved stabiltiy. 11/12-improved but still limisted LTG Duration 01/28 walking Short Term Goal (STG) Pt will return to walking at least .75 mile on flat ground w/o AD w/o pain greater than 3 /10. STG Duration achieved Oracle Database Analyst Goal (LTG) Pt willb e able to hike at least 2 miles on uneven terrain w/o inc pain greater than 2./10 LTG Duration achieved activity Short Term Goal (STG) Pt will be able to don/doff shoes and socks w/o inc pain. STG Duration achieved Mcfp Goal (LTG) Pt will be able to return to gardening and hiking w/o inc pain greater than 1/10 in R hip. 11/12-some tightness in knees w /squatting LTG Duration 01/28 Assessment Summary Assessment Pt is making excellent progress w/PT. Discussed today following up in 1 month or as needed as pt tries to be indep w/HEP and walking. Pt to see MD mid next month and pt to follow up w/PT if needed after this visit. Physical Therapy Plan Frequency and Duration Frequency of Treatment 3 visits Duration of treatment (weeks) 10 Plan of Care Start Date 11/19/22 Plan of Care End Date 01/28/23 Therapeutic Interventions Therapeutic Interventions Balance Training,Gait Training ,Home Exercise Program,Joint Mobilizations,Manual Therapy, Neuromuscular Re-education, Orthotic/Prosthetic Management ,Patient/Caregiver Education, Self-Care/Home Management,Soft Tissue Mobilization,Taping, Therapeutic Activities, Therapeutic Exercises Modalities Cold Pack/Ice Massage,Electric Stimulation,Hot Packs Next Visit Focus/Plan Next Note Type Treatment Note Next Visit Plan pt to do a few visits as needed to progress HEP and advance as pt is likely cleared from precautions at next MD follow up Plan of Care Dates Plan of Care Start Date 11/19/22 Plan of Care End Date 01/28/23 Electronically Signed by: Roxanna Zhong, PT 11/19/22 8906 If you are in agreement with this Plan of Care, please return a signed and dated copy. I have reviewed this Plan of Care and certify that the skilled therapy services above are required to meet the patient?s needs. Physician Signature Date Printed Name and Credentials Clinical Instructor Signature Printed Name and Credentials
--- NOTE | 2023-01-01 17:33 | PT.OTN ---
Current Diagnoses Unilateral primary osteoarthritis, right hip (01/01/23) Difficulty in walking, not elsewhere classified (01/01/23) Abnormal posture (01/01/23) Weakness (01/01/23) Encounter for other preprocedural examination (01/01/23) Physical Therapy Treatment Note PT-OP-A Visit Information Start: 09/11/22 18:48 Freq: Status: Active Protocol: Document 01/01/23 14:48 [facility] (Rec: 01/01/23 15:08 [facility] [id number]) Out-Patient Physical Therapy Visit Information Visit Information Visit Type Discharge Summary Visit Start Time 12:47 Visit Stop Time 13:32 Total Visit Minutes 45 Visit Number 10 Number of LASER TECHNICIAN Visits 0 PT-OP-B Current Condition Start: 09/11/22 18:48 Freq: Status: Active Protocol: Document 09/15/22 09:59 [facility] (Rec: 09/15/22 10:48 [facility] [id number]) Current Condition History of Current Condition Onset Date 08/27/22 Current Complaints R ant Khai History of Current Condition Pt had R ant KHAI on aug 27 2022. Prior to this had hip problems for years and it got worse last fall. MRI showed labral tear w/severe arthritis . It was popping and cracking and she couldn't walked even small distances w/o signficant pain. She has been doing well getting dressed except socks and shoes . Showering goes okay. She has done small walks w/stores or lunch etc. She has a really steep driveway. She has a 2 story home but doens't have to use the downstairs but has done steps step to. Pt has a gym downstairs (bike, treadmill, bench, TRX, weights). 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 Treatment Goals Patient/Caregiver Goals Get back to working out (TRX, hiking, HIIT); put on socks and shoes indep; up/down stairs reciprocally, gardening PT-OP-C Subjective Start: 09/11/22 18:48 Freq: Status: Active Protocol: Document 01/01/23 14:48 [facility] (Rec: 01/01/23 15:08 [facility] [id number]) OP-PT Subjective Patient Comments Patient Comments Pt reports she has walked up [place] and [place] Hip doesn't bother her with this. She still has tightness in ant thigh especially w/lifting leg. doing self soft tissue athome. cleared for anything by PT-OP-F Manual Assessment Start: 09/11/22 18:48 Freq: Status: Active Protocol: Document 09/15/22 09:59 [facility] (Rec: 09/15/22 10:48 [facility] [id number]) Manual Assessments Joint Mobility Assessment Joint Mobility Assessment iliac crest higher on R; equal hips Other Manual Assessments Other Manual Assessments scar healing well PT-OP-G Mobility & Gait Start: 09/11/22 18:48 Freq: Status: Active Protocol: Document 09/15/22 09:59 [facility] (Rec: 09/15/22 10:48 [facility] [id number]) OP Mobility Evaluation Bed Mobility Supine to and from Sit indp Transfers Bed to Chair Transfers uses UEs OP Gait Assessment Comments Gait Comments Dec push off on RLE and more pelvis rotation in push off. dec stance time RLE PT-OP-J Posture/Palpation/Skin Start: 09/11/22 18:48 Freq: Status: Active Protocol: Document 11/12/22 16:56 [facility] (Rec: 11/12/22 17:46 [facility] [id number]) Posture Evaluation [facility] Postural Classification System Lumbar Protective Mechanism Left AP 2 Lumbar Protective Mechanism Right AP 2 Lumbar Protective Mechanism Left PA 3 Lumbar Protective Mechanism Right PA 2 PT-OP-M Strength Start: 09/11/22 18:48 Freq: Status: Active Protocol: Document 01/01/23 14:48 [facility] (Rec: 01/01/23 15:08 [facility] [id number]) Hip Strength Hip Manual Muscle Testing Right Flexion (L2) 4 Good External Rotation 4 Good Internal Rotation 5 Normal PT-OP-Q Treatments Start: 09/11/22 18:48 Freq: Status: Active Protocol: Document 01/01/23 14:48 [facility] (Rec: 01/01/23 15:08 [facility] [id number]) Therapeutic Exercises Supine Exercises stretch Supine Exercise Name R SKTC c/r Reps/Minutes 1 min total Sidelying Exercises clamshell Side right Reps/Minutes 10 Manual Therapy Treatment Soft Tissue Mobilization hip Body Location R add w/ER Fm Mobilization Type Rolling,Sustained Pressure Body Position Hooklying hip flexor Body Location R iliacus Mobilization Type Sustained Pressure Comments w/AAROM flex thigh Body Location R circumfrential & HS Mobilization Type Myofascial Release,Rolling, Strumming,Sustained Pressure Body Position Supine Comments w/AROM knee flex/ext & hip flex Joint Mobilizations hip Grade II Comments R hip on axis ER FM prone, free the ball hooklying FM and R inf glide supine FM innominate Comments R flex FM & ER FM supine PT-OP-T Assessment and Plan Start: 09/11/22 18:48 Freq: Status: Active Protocol: Document 01/01/23 14:48 [facility] (Rec: 01/01/23 15:08 [facility] [id number]) Physical Therapy Assessment Goals lifting leg [employer] Goal (LTG) Pt will be able to lift leg up to do shoes or put on tub to shower 11/19-still some weakness LTG Duration acchieved strength Short Term Goal (STG) Pt will be indep w/HEP STG Duration achieved advancing as able [employer] Goal (LTG) Pt will score at least 4+/5 on all LE MMT B and at least 3/5 on LPM ot show improved stabiltiy. 11/12-improved but still limisted LTG Duration much improved walking Short Term Goal (STG) Pt will return to walking at least .75 mile on flat ground w/o AD w/o pain greater than 3 /10. STG Duration achieved [employer] Goal (LTG) Pt willb e able to hike at least 2 miles on uneven terrain w/o inc pain greater than 2./10 LTG Duration achieved activity Short Term Goal (STG) Pt will be able to don/doff shoes and socks w/o inc pain. STG Duration achieved [employer] Goal (LTG) Pt will be able to return to gardening and hiking w/o inc pain greater than 1/10 in R hip. 11/12-some tightness in knees w /squatting LTG Duration achieved Assessment Summary Assessment Pt has made excellent progress at this time and is doing well with her strength, pain and fucntional activities. She has returned to hiking and working out without hip discomfort. Still some hip weakness but pt has HEP to cont at home for this and hip stiffness that exercises will help w/. Pt d/c at this time d /t meeting most goals. Physical Therapy Plan Discharge Physical Therapy Discharge Reasons Goals Met
== END 2023-01-05 14:53 | disposition home or self-care (01) ==
LOC: PHYS 12:45
PROVIDERS: Family Provider Family Medicine; PCP Family Medicine; Referring Provider Physician Assistant; Visit Provider Physician Assistant
DX: Z01.818 Encounter for other preprocedural examination (principal); M16.11 Unilateral primary osteoarthritis, right hip; R53.1 Weakness; R29.3 Abnormal posture; R26.2 Difficulty in walking, not elsewhere classified
CPT/HCPCS: 97110; 97112; 97140; 97162

== ENCOUNTER → 2023-01-13 | Outpatient (CLI) | payer OTHER, SELFPAY | PROVIDERS: Family Provider Family Medicine; PCP Family Medicine; Referring Provider Family Medicine; Visit Provider Family Medicine | DX: Z23 Encounter for immunization (principal) | CPT/HCPCS: 90471; 90686 ==

== ENCOUNTER → 2023-07-23 07:37 | Outpatient (CLI) | payer OTHER, SELFPAY | PROVIDERS: Family Provider Family Medicine; PCP Family Medicine; Referring Provider Family Medicine; Visit Provider Family Medicine | DX: R53.83 Other fatigue (principal); Z13.9 Encounter for screening, unspecified; R53.82 Chronic fatigue, unspecified; D64.9 Anemia, unspecified | CPT/HCPCS: 82728; 82947; 84443 ==

== ENCOUNTER 2023-09-08 13:45 | Outpatient (RCR) | payer OTHER, SELFPAY ==
--- NOTE | 2023-06-29 17:48 | PT.OIE ---
Current Diagnoses Spondylosis without myelopathy or radiculopathy, cervical region (06/29/23) Spinal stenosis, cervical region (06/29/23) Cervical disc disorder at C5-C6 level with radiculopathy (06/29/23) Other cervical disc displacement, unspecified cervical region (06/29/23) Radiculopathy, cervical region (06/29/23) Muscle weakness (generalized) (06/29/23) Abnormal posture (06/29/23) Past Medical History (Last Reviewed 05/07/22 @ 16:58 by René Hartmann DO) Cervical disc disorder at C5-C6 level with radiculopathy Cervical radiculopathy at C7 Cervical stenosis of spinal canal Degenerative joint disease of both hips Depression (~2000) Facet arthropathy, cervical Fractures (~1972) HNP (herniated nucleus pulposus), cervical Osteoarthritis (~2008) Shingles (~2010) Past Surgical History (Last Reviewed 05/07/22 @ 16:58 by René Hartmann DO) Anesthesia History of thumb surgery (~07/2013) Visit Care Team Role Provider Type Roxanna Mcneal MD Family Provider Physician Primary Care Provider Specialty: Family Practice Address: [address] [place] [address], [id number] Email: [email or web address] René Hartmann DO Attending Provider Physician Referring Provider Specialty: Interventional Radiology Physiatry Pain Management Address: [address] [place] [address], [facility] Email: [email or web address] Physical Therapy Initial Evaluation PT-OP-A Visit Information Start: 06/18/23 13:30 Freq: Status: Active Protocol: Document 06/29/23 14:34 [facility] (Rec: 06/29/23 16:06 [facility] [id number]) Out-Patient Physical Therapy Visit Information Visit Information Visit Type Initial Evaluation Visit Start Time 14:35 Visit Stop Time 15:20 Visit Number 1 Number of STRUCTURAL STEEL DETAILER Visits 0 PT-OP-B Current Condition Start: 06/18/23 13:30 Freq: Status: Active Protocol: Document 06/29/23 14:34 [facility] (Rec: 06/29/23 16:06 [facility] [id number]) Current Condition History of Current Condition Current Complaints R enck pain and RUE weakness History of Current Condition C3-6 ACDF performed in 2021. Pt has continued RUE weakness and neck pain. She still has post neck pain R side. ALONZO occasionally but not as much anymore. Sometimes in sleep, gets tingling in fingers. Did not do PT after surgery or any other treatment. Broke R elbow as a kid and feels like that casues shoulder to sit more fwd. Pt had RUE weakness since 2013 and got progressively worse over time . Treatment Goals Patient/Caregiver Goals improve strength; put a gallon of milk on counter w/good mechancis. Be able to curl PT-OP-C Subjective Start: 06/18/23 13:30 Freq: Status: Active Protocol: Document 06/29/23 14:34 [facility] (Rec: 06/29/23 16:06 [facility] [id number]) Patient Questionnaires Neck Disability Index NDI Score 9/50 Quick Dash- Upper Extremity Quick Dash UE Score 20.45 Quick Dash- Work and Sports Modules Quick Dash W&S Score work 0;sports 56.25 OP-PT Pain Assessment Location neck pain Pain Location Details R neck post Intensity 4 Scale Used Numeric (0 - 10) Description Aching,Tightness Frequency Intermittent Other Pain Aggravating Factors raising RUE overhead Other Pain Alleviating Factors stretching, ibuprofen/tylenol PT-OP-F Manual Assessment Start: 06/18/23 13:30 Freq: Status: Active Protocol: Document 06/29/23 14:34 [facility] (Rec: 06/29/23 16:06 [facility] [id number]) Manual Assessments Joint Mobility Assessment Joint Mobility Assessment R 1st rib elevated PT-OP-J Posture/Palpation/Skin Start: 06/18/23 13:30 Freq: Status: Active Protocol: Document 06/29/23 14:34 [facility] (Rec: 06/29/23 16:06 [facility] [id number]) Posture Evaluation Ca Postural Classification System Ca Postural Classifications Posterior/Posterior Elbow Flexion Test 0 Comments Posture Comments ant tipped scap, IR scap, abd scap, torsos rot to R PT-OP-K Range of Motion Start: 06/18/23 13:30 Freq: Status: Active Protocol: Document 06/29/23 14:34 [facility] (Rec: 06/29/23 16:06 [facility] [id number]) Cervical Spine Range of Motion Cervical Spine Active Degrees Flexion 60 Extension 30 Rotation Left 47 Rotation Right 46 Lateral Flexion Left 32 Lateral Flexion Right 22 Comments pull w/flex 80% tspine rot PT-OP-L Special Tests Start: 06/18/23 13:30 Freq: Status: Active Protocol: Document 06/29/23 14:34 [facility] (Rec: 06/29/23 16:06 [facility] [id number]) Special Tests Cervical Spine Special Tests cranial n testing Test Results WNL except w/tracking especially R- saccades noted VBA screen Comments 138/74; ausciltation of carotid and heart 4 pts wnl Traction Test Results neg Spurling's Test Comments neg Upper Limb Tension Test Test Results 70 deg passive abd L; 30 deg R Neural Special Tests- Upper Body Median Nerve Tension Test Results pos B Radial Nerve Tension Comments Pos B Ulnar Nerve Tension Comments pos R Other Special Tests Special Tests no biceps or brachioradialis response w/reflexes R; WNL triceps B, L slightly dec response w/brachioradialis reflex, WNL biceps PT-OP-M Strength Start: 06/18/23 13:30 Freq: Status: Active Protocol: Document 06/29/23 14:34 [facility] (Rec: 06/29/23 16:06 [facility] [id number]) Shoulder Strength Shoulder Manual Muscle Testing Right Flexion 3+ Fair+ Extension 4- Good- Abduction (C5) 3+ Fair+ External Rotation 3 Fair Internal Rotation 3+ Fair+ Left Flexion 5 Normal Extension 5 Normal Abduction (C5) 5 Normal External Rotation 5 Normal Internal Rotation 5 Normal Elbow/Forearm Strength Elbow and Forearm Manual Muscle Testing Right Flexion (C6) 3+ Fair+ Extension (C7) 4+ Good+ Pronation 3+ Fair+ Supination 3+ Fair+ Comments 3+/5 biceps and brachialis Left Flexion (C6) 5 Normal Extension (C7) 5 Normal Pronation 5 Normal Supination 5 Normal Wrist Strength Wrist Manual Muscle Testing Right Flexion (C7) 5 Normal Extension (C6) 4- Good- Ulnar Deviation 5 Normal Radial Deviation 4- Good- Left Extension (C6) 5 Normal Ulnar Deviation 5 Normal Radial Deviation 5 Normal Hand Operations Research Scientist/Pinch Strength Hand Dominance Hand Dominance Right Hand Strength Right Comments 20kg, 19 kg, 18kg Left Comments 28kg, 24kg,24kg PT-OP-Q Treatments Start: 06/18/23 13:30 Freq: Status: Active Protocol: Document 06/29/23 14:34 [facility] (Rec: 06/30/23 17:38 [facility] [id number]) Self-Care/Home Management Treatment Education Other Education 9 min: edu on how dec reflex on R side is concerning. Discussed w/pt that if she does not improvement w/PT then she should consider neurosurgeon visit for follow up on condition. Edu to pt how posture could be contributing to her pain also w/elevated first rib. PT-OP-T Assessment and Plan Start: 06/18/23 13:30 Freq: Status: Active Protocol: Document 06/29/23 14:34 [facility] (Rec: 06/29/23 16:06 [facility] [id number]) Physical Therapy Assessment Rehab Potential Rehabilitation Potential Good Evaluation Complexity Number of Personal Factors/Comorbidities 3 or More Number of Body Systems Impaired 4 or More Clinical Presentation at Evaluation Unstable Impairments Impairments Activity Tolerance,Functional Activities,Functional Mobility ,Pain,Posture,ROM,Soft Tissue Mobility,Strength Other Impairments dec reflex Goals activity Business And Services Instructor Goal (LTG) Pt will be able to lift a gallon of milk onto counter w/ good mechanics LTG Duration 09/21/23 ROM Short Term Goal (STG) Pt will have improved rotation to at least 52 deg B w/o inc pain to improve driving ability Business And Services Instructor Goal (LTG) Pt will have improved rotation to at least 60 deg B and ext to at least 50 deg w/o inc pain to improve driving ability and functional activity LTG Duration 09/22/23 strength Short Term Goal (STG) Pt will be indep w/HEP STG Duration 08/06 Senior Living Goal (LTG) Pt will have improved strength to at least 4/5 for all RUE MMT to show improved strength to allow greater ease of function LTG Duration 09/20 Assessment Summary Assessment Pt presents w/long history of neck pain and RUE progressive weakness resulting in ACDF C3- 6 in 2021. She had improvements in pain but still does have neck pain w/occ ALONZO along w/signficiant RUE weakness. She did not have PT after surgery and has hx of broken R elbow as a kid. She has significant R sided weakness along w/no brachioradialis or biceps reflex evident on R side. She is unable to do simple household tasks like flex elbow to lift something onto counter like a gallon of milk. She would benefit from skilled PT to work on strength , and mobility to dec pain and improve her function. Physical Therapy Plan Frequency and Duration Frequency of Treatment 1-2x/wk Duration of treatment (weeks) 12 Plan of Care Start Date 06/29/23 Plan of Care End Date 09/21/23 Therapeutic Interventions Therapeutic Interventions Coordination Training,Home Exercise Program,Joint Mobilizations,Manual Therapy, Neuromuscular Re-education, Patient/Caregiver Education, Self-Care/Home Management,Soft Tissue Mobilization,Taping, Therapeutic Activities, Therapeutic Exercises Modalities Cold Pack/Ice Massage,Electric Stimulation,Hot Packs, Ultrasound Next Visit Focus/Plan Next Note Type Treatment Note Next Visit Plan check sensation of UE; work on upper thoracic and first rib mobility along w/upper cervical mobility Start strengthening: bicep and brachioradialis curls, shoulder ER/IR, wrist ext, rows
--- NOTE | 2023-06-29 17:49 | PT.OPPOC ---
Physical, Occupational & Speech Therapy At Current Diagnoses Spondylosis without myelopathy or radiculopathy, cervical region (06/29/23) Spinal stenosis, cervical region (06/29/23) Cervical disc disorder at C5-C6 level with radiculopathy (06/29/23) Other cervical disc displacement, unspecified cervical region (06/29/23) Radiculopathy, cervical region (06/29/23) Muscle weakness (generalized) (06/29/23) Abnormal posture (06/29/23) Visit Care Team Role Provider Type Roxanna Mcneal MD Family Provider Physician Primary Care Provider Specialty: Family Practice Address: [address] [place] [address], [id number] Email: [email or web address] René Hartmann DO Attending Provider Physician Referring Provider Specialty: Interventional Radiology Physiatry Pain Management Address: [address] [place] [address], [address] Email: [email or web address] Plan Of Care PT-OP-T Assessment and Plan Start: 06/18/23 13:30 Freq: Status: Active Protocol: Document 06/29/23 14:34 [facility] (Rec: 06/29/23 16:06 [facility] [id number]) Physical Therapy Assessment Rehab Potential Rehabilitation Potential Good Evaluation Complexity Number of Personal Factors/Comorbidities 3 or More Number of Body Systems Impaired 4 or More Clinical Presentation at Evaluation Unstable Impairments Impairments Activity Tolerance,Functional Activities,Functional Mobility ,Pain,Posture,ROM,Soft Tissue Mobility,Strength Other Impairments dec reflex Goals activity Intermediate Goal (LTG) Pt will be able to lift a gallon of milk onto counter w/ good mechanics LTG Duration 09/21/23 ROM Short Term Goal (STG) Pt will have improved rotation to at least 52 deg B w/o inc pain to improve driving ability Client Service Manager Goal (LTG) Pt will have improved rotation to at least 60 deg B and ext to at least 50 deg w/o inc pain to improve driving ability and functional activity LTG Duration 09/22/23 strength Short Term Goal (STG) Pt will be indep w/HEP STG Duration 08/06 Client Service Manager Goal (LTG) Pt will have improved strength to at least 4/5 for all RUE MMT to show improved strength to allow greater ease of function LTG Duration 09/20 Assessment Summary Assessment Pt presents w/long history of neck pain and RUE progressive weakness resulting in ACDF C3- 6 in 2021. She had improvements in pain but still does have neck pain w/occ ALONZO along w/signficiant RUE weakness. She did not have PT after surgery and has hx of broken R elbow as a kid. She has significant R sided weakness along w/no brachioradialis or biceps reflex evident on R side. She is unable to do simple household tasks like flex elbow to lift something onto counter like a gallon of milk. She would benefit from skilled PT to work on strength , and mobility to dec pain and improve her function. Physical Therapy Plan Frequency and Duration Frequency of Treatment 1-2x/wk Duration of treatment (weeks) 12 Plan of Care Start Date 06/29/23 Plan of Care End Date 09/21/23 Therapeutic Interventions Therapeutic Interventions Coordination Training,Home Exercise Program,Joint Mobilizations,Manual Therapy, Neuromuscular Re-education, Patient/Caregiver Education, Self-Care/Home Management,Soft Tissue Mobilization,Taping, Therapeutic Activities, Therapeutic Exercises Modalities Cold Pack/Ice Massage,Electric Stimulation,Hot Packs, Ultrasound Next Visit Focus/Plan Next Note Type Treatment Note Next Visit Plan check sensation of UE; work on upper thoracic and first rib mobility along w/upper cervical mobility Start strengthening: bicep and brachioradialis curls, shoulder ER/IR, wrist ext, rows Plan of Care Dates Plan of Care Start Date 06/29/23 Plan of Care End Date 09/21/23 Electronically Signed by: Roxanna Zhong, PT 06/30/23 [id number] If you are in agreement with this Plan of Care, please return a signed and dated copy. I have reviewed this Plan of Care and certify that the skilled therapy services above are required to meet the patient?s needs. Physician Signature Date Printed Name and Credentials Clinical Instructor Signature Printed Name and Credentials
--- NOTE | 2023-07-01 15:18 | PT.OTN ---
Current Diagnoses Spondylosis without myelopathy or radiculopathy, cervical region (07/01/23) Spinal stenosis, cervical region (07/01/23) Cervical disc disorder at C5-C6 level with radiculopathy (07/01/23) Other cervical disc displacement, unspecified cervical region (07/01/23) Radiculopathy, cervical region (07/01/23) Muscle weakness (generalized) (07/01/23) Abnormal posture (07/01/23) Physical Therapy Treatment Note PT-OP-A Visit Information Start: 06/18/23 13:30 Freq: Status: Active Protocol: Document 07/01/23 13:47 [facility] (Rec: 07/01/23 15:18 [facility] [id number]) Out-Patient Physical Therapy Visit Information Visit Information Visit Type Treatment Note Visit Start Time 14:32 Visit Stop Time 15:14 Visit Number 2 Number of DRY FOLDER CLOTH Visits 0 PT-OP-B Current Condition Start: 06/18/23 13:30 Freq: Status: Active Protocol: Document 06/29/23 14:34 [facility] (Rec: 06/29/23 16:06 [facility] [id number]) Current Condition History of Current Condition Current Complaints R enck pain and RUE weakness History of Current Condition C3-6 ACDF performed in 2021. Pt has continued RUE weakness and neck pain. She still has post neck pain R side. ALONZO occasionally but not as much anymore. Sometimes in sleep, gets tingling in fingers. Did not do PT after surgery or any other treatment. Broke R elbow as a kid and feels like that casues shoulder to sit more fwd. Pt had RUE weakness since aroudn 2013 and got progressively worse over time . Treatment Goals Patient/Caregiver Goals improve strength; put a gallon of milk on counter w/good mechancis. Be able to curl PT-OP-C Subjective Start: 06/18/23 13:30 Freq: Status: Active Protocol: Document 07/01/23 13:47 [facility] (Rec: 07/01/23 15:18 [facility] [id number]) OP-PT Subjective Patient Comments Patient Comments No new complaints today PT-OP-F Manual Assessment Start: 06/18/23 13:30 Freq: Status: Active Protocol: Document 06/29/23 14:34 [facility] (Rec: 06/29/23 16:06 [facility] [id number]) Manual Assessments Joint Mobility Assessment Joint Mobility Assessment R 1st rib elevated PT-OP-J Posture/Palpation/Skin Start: 06/18/23 13:30 Freq: Status: Active Protocol: Document 06/29/23 14:34 [facility] (Rec: 06/29/23 16:06 [facility] [id number]) Posture Evaluation [facility] Postural Classification System Ca Postural Classifications Posterior/Posterior Elbow Flexion Test 0 Comments Posture Comments ant tipped scap, IR scap, abd scap, torsos rot to R PT-OP-K Range of Motion Start: 06/18/23 13:30 Freq: Status: Active Protocol: Document 06/29/23 14:34 [facility] (Rec: 06/29/23 16:06 [facility] [id number]) Cervical Spine Range of Motion Cervical Spine Active Degrees Flexion 60 Extension 30 Rotation Left 47 Rotation Right 46 Lateral Flexion Left 32 Lateral Flexion Right 22 Comments pull w/flex 80% tspine rot PT-OP-L Special Tests Start: 06/18/23 13:30 Freq: Status: Active Protocol: Document 06/29/23 14:34 [facility] (Rec: 06/29/23 16:06 [facility] [id number]) Special Tests Cervical Spine Special Tests cranial n testing Test Results WNL except w/tracking especially R- saccades noted VBA screen Comments 138/74; ausciltation of carotid and heart 4 pts wnl Traction Test Results neg Spurling's Test Comments neg Upper Limb Tension Test Test Results 70 deg passive abd L; 30 deg R Neural Special Tests- Upper Body Median Nerve Tension Test Results pos B Radial Nerve Tension Comments Pos B Ulnar Nerve Tension Comments pos R Other Special Tests Special Tests no biceps or brachioradialis response w/reflexes R; WNL triceps B, L slightly dec response w/brachioradialis reflex, WNL biceps PT-OP-M Strength Start: 06/18/23 13:30 Freq: Status: Active Protocol: Document 06/29/23 14:34 [facility] (Rec: 06/29/23 16:06 [facility] [id number]) Shoulder Strength Shoulder Manual Muscle Testing Right Flexion 3+ Fair+ Extension 4- Good- Abduction (C5) 3+ Fair+ External Rotation 3 Fair Internal Rotation 3+ Fair+ Left Flexion 5 Normal Extension 5 Normal Abduction (C5) 5 Normal External Rotation 5 Normal Internal Rotation 5 Normal Elbow/Forearm Strength Elbow and Forearm Manual Muscle Testing Right Flexion (C6) 3+ Fair+ Extension (C7) 4+ Good+ Pronation 3+ Fair+ Supination 3+ Fair+ Comments 3+/5 biceps and brachialis Left Flexion (C6) 5 Normal Extension (C7) 5 Normal Pronation 5 Normal Supination 5 Normal Wrist Strength Wrist Manual Muscle Testing Right Flexion (C7) 5 Normal Extension (C6) 4- Good- Ulnar Deviation 5 Normal Radial Deviation 4- Good- Left Extension (C6) 5 Normal Ulnar Deviation 5 Normal Radial Deviation 5 Normal Hand Assisted Living Director/Pinch Strength Hand Dominance Hand Dominance Right Hand Strength Right Comments 20kg, 19 kg, 18kg Left Comments 28kg, 24kg,24kg PT-OP-Q Treatments Start: 06/18/23 13:30 Freq: Status: Active Protocol: Document 07/01/23 13:47 [facility] (Rec: 07/01/23 15:18 [facility] [id number]) Therapeutic Exercises Sitting Exercises ext Sitting Exercise Name wrist Side right Equipment Used 2#, 3# Reps/Minutes 10 ea wt Standing Exercises IR Side right Equipment Used ambler Reps/Minutes 10 ext Side bilateral Equipment Used ambler Reps/Minutes 15 ER Standing Exercise Name unable to do ER vs band so instead side step w/arm in ER Side right Equipment Used peach band Reps/Minutes 8 curls Standing Exercise Name 1. in supination 2. pronation 3. in neutral Side bilateral Equipment Used 3# ea hand Reps/Minutes 10 ea Manual Therapy Treatment Soft Tissue Mobilization post Body Location R paraspinals Mobilization Type Rolling Intensity/Depth Moderate Body Position Supine pec Body Location R Mobilization Type Rolling Intensity/Depth Moderate Body Position Supine ant Body Location R: SCM, scalenes Mobilization Type Rolling Intensity/Depth Moderate Body Position Supine Comments w/rot Joint Mobilizations ribs Comments ribs 1-3 caudal FM Thoracic Comments T1-3 AP FM GH Comments R post FM SC Joint R distraction and inf FM AC Joint R clavicle ant FM PT-OP-T Assessment and Plan Start: 06/18/23 13:30 Freq: Status: Active Protocol: Document 07/01/23 13:47 [facility] (Rec: 07/01/23 15:18 [facility] [id number]) Physical Therapy Assessment Goals activity [facility] Goal (LTG) Pt will be able to lift a gallon of milk onto counter w/ good mechanics LTG Duration 09/21/23 ROM Short Term Goal (STG) Pt will have improved rotation to at least 52 deg B w/o inc pain to improve driving ability Network Control Operator Goal (LTG) Pt will have improved rotation to at least 60 deg B and ext to at least 50 deg w/o inc pain to improve driving ability and functional activity LTG Duration 09/22/23 strength Short Term Goal (STG) Pt will be indep w/HEP STG Duration 08/06 [facility] Goal (LTG) Pt will have improved strength to at least 4/5 for all RUE MMT to show improved strength to allow greater ease of function LTG Duration 09/20 Assessment Summary Assessment Pt did well with strengthening exercises w/cahllenge noted throughout especially w/biceps curls and ER so walk lat done vs active ER. She had imrpoved cervical mobility after manual Physical Therapy Plan Frequency and Duration Frequency of Treatment 1-2x/wk Duration of treatment (weeks) 12 Plan of Care Start Date 06/29/23 Plan of Care End Date 09/21/23 Next Visit Focus/Plan Next Note Type Treatment Note Next Visit Plan check sensation of UE; work on upper thoracic and first rib mobility along w/upper cervical mobility Advance strengthening and review HEP as needed
--- NOTE | 2023-07-07 15:10 | PT.OTN ---
Current Diagnoses Spondylosis without myelopathy or radiculopathy, cervical region (07/07/23) Spinal stenosis, cervical region (07/07/23) Cervical disc disorder at C5-C6 level with radiculopathy (07/07/23) Other cervical disc displacement, unspecified cervical region (07/07/23) Radiculopathy, cervical region (07/07/23) Muscle weakness (generalized) (07/07/23) Abnormal posture (07/07/23) Physical Therapy Treatment Note PT-OP-A Visit Information Start: 06/18/23 13:30 Freq: Status: Active Protocol: Document 07/07/23 14:28 SP (Rec: 07/07/23 15:46 SP [id number]) Out-Patient Physical Therapy Visit Information Visit Information Visit Type Treatment Note Visit Start Time 14:30 Visit Stop Time 15:10 Visit Number 3 Number of [employer] Visits 1 Precautions Precautions 2021: ACDF C3-6. PT-OP-B Current Condition Start: 06/18/23 13:30 Freq: Status: Active Protocol: Document 06/29/23 14:34 [facility] (Rec: 06/29/23 16:06 [facility] [id number]) Current Condition History of Current Condition Current Complaints R enck pain and RUE weakness History of Current Condition C3-6 ACDF performed in 2021. Pt has continued RUE weakness and neck pain. She still has post neck pain R side. ALONZO occasionally but not as much anymore. Sometimes in sleep, gets tingling in fingers. Did not do PT after surgery or any other treatment. Broke R elbow as a kid and feels like that casues shoulder to sit more fwd. Pt had RUE weakness since aroudn 2013 and got progressively worse over time . Treatment Goals Patient/Caregiver Goals improve strength; put a gallon of milk on counter w/good mechancis. Be able to curl PT-OP-C Subjective Start: 06/18/23 13:30 Freq: Status: Active Protocol: Document 07/07/23 14:28 SP (Rec: 07/07/23 15:46 SP [id number]) OP-PT Subjective Patient Comments Patient Comments Pt reports bicep curls hard on R weakness. COmpliant with HEP. stiffness and R lateral neck tight, wanting continue STMs, how can help self. PT-OP-F Manual Assessment Start: 06/18/23 13:30 Freq: Status: Active Protocol: Document 06/29/23 14:34 [facility] (Rec: 06/29/23 16:06 [facility] [id number]) Manual Assessments Joint Mobility Assessment Joint Mobility Assessment R 1st rib elevated PT-OP-J Posture/Palpation/Skin Start: 06/18/23 13:30 Freq: Status: Active Protocol: Document 06/29/23 14:34 [facility] (Rec: 06/29/23 16:06 [facility] [id number]) Posture Evaluation [facility] Postural Classification System [facility] Postural Classifications Posterior/Posterior Elbow Flexion Test 0 Comments Posture Comments ant tipped scap, IR scap, abd scap, torsos rot to R PT-OP-K Range of Motion Start: 06/18/23 13:30 Freq: Status: Active Protocol: Document 06/29/23 14:34 [facility] (Rec: 06/29/23 16:06 [facility] [id number]) Cervical Spine Range of Motion Cervical Spine Active Degrees Flexion 60 Extension 30 Rotation Left 47 Rotation Right 46 Lateral Flexion Left 32 Lateral Flexion Right 22 Comments pull w/flex 80% tspine rot PT-OP-L Special Tests Start: 06/18/23 13:30 Freq: Status: Active Protocol: Document 06/29/23 14:34 [facility] (Rec: 06/29/23 16:06 [facility] [id number]) Special Tests Cervical Spine Special Tests cranial n testing Test Results WNL except w/tracking especially R- saccades noted VBA screen Comments 138/74; ausciltation of carotid and heart 4 pts wnl Traction Test Results neg Spurling's Test Comments neg Upper Limb Tension Test Test Results 70 deg passive abd L; 30 deg R Neural Special Tests- Upper Body Median Nerve Tension Test Results pos B Radial Nerve Tension Comments Pos B Ulnar Nerve Tension Comments pos R Other Special Tests Special Tests no biceps or brachioradialis response w/reflexes R; WNL triceps B, L slightly dec response w/brachioradialis reflex, WNL biceps PT-OP-M Strength Start: 06/18/23 13:30 Freq: Status: Active Protocol: Document 06/29/23 14:34 [facility] (Rec: 06/29/23 16:06 [facility] [id number]) Shoulder Strength Shoulder Manual Muscle Testing Right Flexion 3+ Fair+ Extension 4- Good- Abduction (C5) 3+ Fair+ External Rotation 3 Fair Internal Rotation 3+ Fair+ Left Flexion 5 Normal Extension 5 Normal Abduction (C5) 5 Normal External Rotation 5 Normal Internal Rotation 5 Normal Elbow/Forearm Strength Elbow and Forearm Manual Muscle Testing Right Flexion (C6) 3+ Fair+ Extension (C7) 4+ Good+ Pronation 3+ Fair+ Supination 3+ Fair+ Comments 3+/5 biceps and brachialis Left Flexion (C6) 5 Normal Extension (C7) 5 Normal Pronation 5 Normal Supination 5 Normal Wrist Strength Wrist Manual Muscle Testing Right Flexion (C7) 5 Normal Extension (C6) 4- Good- Ulnar Deviation 5 Normal Radial Deviation 4- Good- Left Extension (C6) 5 Normal Ulnar Deviation 5 Normal Radial Deviation 5 Normal Hand Etymology Teacher/Pinch Strength Hand Dominance Hand Dominance Right Hand Strength Right Comments 20kg, 19 kg, 18kg Left Comments 28kg, 24kg,24kg PT-OP-Q Treatments Start: 06/18/23 13:30 Freq: Status: Active Protocol: Document 07/07/23 14:28 SP (Rec: 07/07/23 15:46 SP [id number]) Therapeutic Exercises Supine Exercises foam roller Supine Exercise Name 1. pec stretch 2. snow constantin 3 . serratus press 4. Ts ext & rolling 5. Ws Side bilateral Resistance 3. 3# DB Reps/Minutes 1. various angles 10 SH 2. 3 reps 3. 10 reps 4. 1 min total 5. 20SH str Comments good response Sitting Exercises stretching Sitting Exercise Name UT, LS, scalene Side right Equipment Used gentle opp UE over no excess pressure if beneficial Reps/Minutes 20 SH Comments good feedback stretch Standing Exercises wall push ups Standing Exercise Name 1. W 2. Mary Jo- hand positions Side bilateral Resistance AROM Equipment Used added to HEP Reps/Minutes x10 each Comments close chain, painfree good scap positioning, tiring UEs IR Side right Resistance TB #3 [place] Equipment Used towel roll under arm Reps/Minutes 10 Comments good postural alignment ext Standing Exercise Name rows and ext Side bilateral Resistance TB # 3 [place] Reps/Minutes 15 Comments ed start position ER Standing Exercise Name isometric side step w/arm in ER Side right Resistance TB #3 [place] Equipment Used towel roll under arm Reps/Minutes 8 Comments good form, ed not ext wrist/ neutral curls Standing Exercise Name Bicep: 1. in supination 2. pronation 3. in neutral Side right Resistance 3# DB ea hand Equipment Used towel roll under R arm Reps/Minutes 10 ea Comments occ cue scap retract with last few reps Manual Therapy Treatment Soft Tissue Mobilization post Body Location R>L paraspinals Mobilization Type Rolling Intensity/Depth Moderate Body Position Supine ant Body Location R>L: SCM, scalenes Mobilization Type Rolling Intensity/Depth Moderate Body Position Supine Comments w/rot PT-OP-T Assessment and Plan Start: 06/18/23 13:30 Freq: Status: Active Protocol: Document 07/07/23 14:28 SP (Rec: 07/07/23 15:46 SP [id number]) Physical Therapy Assessment Goals activity Shelter Goal (LTG) Pt will be able to lift a gallon of milk onto counter w/ good mechanics LTG Duration 09/21/23 ROM Short Term Goal (STG) Pt will have improved rotation to at least 52 deg B w/o inc pain to improve driving ability [employer] Goal (LTG) Pt will have improved rotation to at least 60 deg B and ext to at least 50 deg w/o inc pain to improve driving ability and functional activity LTG Duration 09/22/23 strength Short Term Goal (STG) Pt will be indep w/HEP STG Duration 08/06 [employer] Goal (LTG) Pt will have improved strength to at least 4/5 for all RUE MMT to show improved strength to allow greater ease of function LTG Duration 09/20 Assessment Summary Assessment Pt good tolerance and response reduction tension post manual to neck and education self appication use theracane. Introduced neck stretching with mindful limitation range, not excess overpressure. Good feedback scapular ROM and reduction neck tension UE mobility over foam roller and added resisted serratus press. Declined picture HO but listed activities today adding to home with good understanding. Reviewed resisted UE strengthening HEP with good form and tiring effort RUE reported, not ready for increased resistance. Pt reports her neck felt pretty good more ROM end tx. Physical Therapy Plan Frequency and Duration Frequency of Treatment 1-2x/wk Duration of treatment (weeks) 12 Plan of Care Start Date 06/29/23 Plan of Care End Date 09/21/23 Therapeutic Interventions Therapeutic Interventions Coordination Training,Home Exercise Program,Joint Mobilizations,Manual Therapy, Neuromuscular Re-education, Patient/Caregiver Education, Self-Care/Home Management,Soft Tissue Mobilization,Taping, Therapeutic Activities, Therapeutic Exercises Modalities Cold Pack/Ice Massage,Electric Stimulation,Hot Packs, Ultrasound Next Visit Focus/Plan Next Note Type Treatment Note Next Visit Plan Check ROM over foam roller, wall pushups, neck stretching/ MWM theracane. POC per PT: check sensation of UE; work on upper thoracic and first rib mobility along w /upper cervical mobility Advance strengthening and review HEP as needed
--- NOTE | 2023-07-09 15:21 | PT.OTN ---
Current Diagnoses Spondylosis without myelopathy or radiculopathy, cervical region (07/09/23) Spinal stenosis, cervical region (07/09/23) Cervical disc disorder at C5-C6 level with radiculopathy (07/09/23) Other cervical disc displacement, unspecified cervical region (07/09/23) Radiculopathy, cervical region (07/09/23) Muscle weakness (generalized) (07/09/23) Abnormal posture (07/09/23) Physical Therapy Treatment Note PT-OP-A Visit Information Start: 06/18/23 13:30 Freq: Status: Active Protocol: Document 07/09/23 14:36 [facility] (Rec: 07/09/23 15:21 [facility] [id number]) Out-Patient Physical Therapy Visit Information Visit Information Visit Type Treatment Note Visit Start Time 14:33 Visit Stop Time 15:13 Visit Number 4 Number of RESPIRATORY THERAPY TECHNICIAN Visits 0 PT-OP-B Current Condition Start: 06/18/23 13:30 Freq: Status: Active Protocol: Document 06/29/23 14:34 [facility] (Rec: 06/29/23 16:06 [facility] [id number]) Current Condition History of Current Condition Current Complaints R enck pain and RUE weakness History of Current Condition C3-6 ACDF performed in 2021. Pt has continued RUE weakness and neck pain. She still has post neck pain R side. ALONZO occasionally but not as much anymore. Sometimes in sleep, gets tingling in fingers. Did not do PT after surgery or any other treatment. Broke R elbow as a kid and feels like that casues shoulder to sit more fwd. Pt had RUE weakness since ud2013 and got progressively worse over time . Treatment Goals Patient/Caregiver Goals improve strength; put a gallon of milk on counter w/good mechancis. Be able to curl PT-OP-C Subjective Start: 06/18/23 13:30 Freq: Status: Active Protocol: Document 07/09/23 14:36 [facility] (Rec: 07/09/23 15:21 [facility] [id number]) OP-PT Subjective Patient Comments Patient Comments Compliance w/exercises. was sore last night and had to take tylenol PT-OP-F Manual Assessment Start: 06/18/23 13:30 Freq: Status: Active Protocol: Document 06/29/23 14:34 [facility] (Rec: 06/29/23 16:06 [facility] [id number]) Manual Assessments Joint Mobility Assessment Joint Mobility Assessment R 1st rib elevated PT-OP-J Posture/Palpation/Skin Start: 06/18/23 13:30 Freq: Status: Active Protocol: Document 06/29/23 14:34 [facility] (Rec: 06/29/23 16:06 [facility] [id number]) Posture Evaluation [facility] Postural Classification System [facility] Postural Classifications Posterior/Posterior Elbow Flexion Test 0 Comments Posture Comments ant tipped scap, IR scap, abd scap, torsos rot to R PT-OP-K Range of Motion Start: 06/18/23 13:30 Freq: Status: Active Protocol: Document 06/29/23 14:34 [facility] (Rec: 06/29/23 16:06 [facility] [id number]) Cervical Spine Range of Motion Cervical Spine Active Degrees Flexion 60 Extension 30 Rotation Left 47 Rotation Right 46 Lateral Flexion Left 32 Lateral Flexion Right 22 Comments pull w/flex 80% tspine rot PT-OP-L Special Tests Start: 06/18/23 13:30 Freq: Status: Active Protocol: Document 06/29/23 14:34 [facility] (Rec: 06/29/23 16:06 [facility] [id number]) Special Tests Cervical Spine Special Tests cranial n testing Test Results WNL except w/tracking especially R- saccades noted VBA screen Comments 138/74; ausciltation of carotid and heart 4 pts wnl Traction Test Results neg Spurling's Test Comments neg Upper Limb Tension Test Test Results 70 deg passive abd L; 30 deg R Neural Special Tests- Upper Body Median Nerve Tension Test Results pos B Radial Nerve Tension Comments Pos B Ulnar Nerve Tension Comments pos R Other Special Tests Special Tests no biceps or brachioradialis response w/reflexes R; WNL triceps B, L slightly dec response w/brachioradialis reflex, WNL biceps PT-OP-M Strength Start: 06/18/23 13:30 Freq: Status: Active Protocol: Document 06/29/23 14:34 [facility] (Rec: 06/29/23 16:06 [facility] [id number]) Shoulder Strength Shoulder Manual Muscle Testing Right Flexion 3+ Fair+ Extension 4- Good- Abduction (C5) 3+ Fair+ External Rotation 3 Fair Internal Rotation 3+ Fair+ Left Flexion 5 Normal Extension 5 Normal Abduction (C5) 5 Normal External Rotation 5 Normal Internal Rotation 5 Normal Elbow/Forearm Strength Elbow and Forearm Manual Muscle Testing Right Flexion (C6) 3+ Fair+ Extension (C7) 4+ Good+ Pronation 3+ Fair+ Supination 3+ Fair+ Comments 3+/5 biceps and brachialis Left Flexion (C6) 5 Normal Extension (C7) 5 Normal Pronation 5 Normal Supination 5 Normal Wrist Strength Wrist Manual Muscle Testing Right Flexion (C7) 5 Normal Extension (C6) 4- Good- Ulnar Deviation 5 Normal Radial Deviation 4- Good- Left Extension (C6) 5 Normal Ulnar Deviation 5 Normal Radial Deviation 5 Normal Hand Lube Attendant/Pinch Strength Hand Dominance Hand Dominance Right Hand Strength Right Comments 20kg, 19 kg, 18kg Left Comments 28kg, 24kg,24kg PT-OP-Q Treatments Start: 06/18/23 13:30 Freq: Status: Active Protocol: Document 07/09/23 14:36 [facility] (Rec: 07/09/23 15:21 [facility] [id number]) Manual Therapy Treatment Soft Tissue Mobilization sup Body Location R LS & UT Mobilization Type Rolling,Sustained Pressure Intensity/Depth Moderate post Body Location R>L paraspinals & ligamentum nuchae Mobilization Type Rolling Intensity/Depth Moderate Body Position Supine Comments w/flex and chin tucks pec Body Location R major and minor Mobilization Type Rolling Intensity/Depth Moderate Body Position Supine ant Body Location R>L: SCM, scalenes Mobilization Type Rolling Intensity/Depth Moderate Body Position Supine Comments w/rot Joint Mobilizations cervical Comments C1 transverse L and UAP R FM ribs Comments rib PA 1-3 and external torsion 5 FM R Thoracic Comments PA T1-3 and transverse L 1-3 FM GH Comments R post , lat gap and inf FM AC Joint R clavicle ant FM PT-OP-T Assessment and Plan Start: 06/18/23 13:30 Freq: Status: Active Protocol: Document 07/09/23 14:36 [facility] (Rec: 07/09/23 15:21 [facility] [id number]) Physical Therapy Assessment Goals activity [employer] Machine Operator Goal (LTG) Pt will be able to lift a gallon of milk onto counter w/ good mechanics LTG Duration 09/21/23 ROM Short Term Goal (STG) Pt will have improved rotation to at least 52 deg B w/o inc pain to improve driving ability [employer] Machine Operator Goal (LTG) Pt will have improved rotation to at least 60 deg B and ext to at least 50 deg w/o inc pain to improve driving ability and functional activity LTG Duration 09/22/23 strength Short Term Goal (STG) Pt will be indep w/HEP STG Duration 08/06 [employer] Machine Operator Goal (LTG) Pt will have improved strength to at least 4/5 for all RUE MMT to show improved strength to allow greater ease of function LTG Duration 09/20 Assessment Summary Assessment Pt had improved overhead motion after manual treatment w/RUE and improved R rot. Mid manual noted ALONZO but improved by end of session Physical Therapy Plan Frequency and Duration Frequency of Treatment 1-2x/wk Duration of treatment (weeks) 12 Plan of Care Start Date 06/29/23 Plan of Care End Date 09/21/23 Next Visit Focus/Plan Next Note Type Treatment Note Next Visit Plan Check ROM over foam roller, wall pushups, neck stretching/ MWM theracane. POC per PT: check sensation of UE; work on upper thoracic and first rib mobility along w /upper cervical mobility Advance strengthening and review HEP as needed
--- NOTE | 2023-07-13 15:15 | PT.OTN ---
Current Diagnoses Spondylosis without myelopathy or radiculopathy, cervical region (07/13/23) Spinal stenosis, cervical region (07/13/23) Cervical disc disorder at C5-C6 level with radiculopathy (07/13/23) Other cervical disc displacement, unspecified cervical region (07/13/23) Radiculopathy, cervical region (07/13/23) Muscle weakness (generalized) (07/13/23) Abnormal posture (07/13/23) Physical Therapy Treatment Note PT-OP-A Visit Information Start: 06/18/23 13:30 Freq: Status: Active Protocol: Document 07/13/23 14:35 SP (Rec: 07/13/23 15:37 SP [id number]) Out-Patient Physical Therapy Visit Information Visit Information Visit Type Treatment Note Visit Start Time 14:35 Visit Stop Time 15:15 Visit Number 5 Number of BROTHEL KEEPER Visits 1 Precautions Precautions 2021: ACDF C3-6. PT-OP-B Current Condition Start: 06/18/23 13:30 Freq: Status: Active Protocol: Document 06/29/23 14:34 [facility] (Rec: 06/29/23 16:06 [facility] [id number]) Current Condition History of Current Condition Current Complaints R enck pain and RUE weakness History of Current Condition C3-6 ACDF performed in 2021. Pt has continued RUE weakness and neck pain. She still has post neck pain R side. ALONZO occasionally but not as much anymore. Sometimes in sleep, gets tingling in fingers. Did not do PT after surgery or any other treatment. Broke R elbow as a kid and feels like that casues shoulder to sit more fwd. Pt had RUE weakness since aroudn 2013 and got progressively worse over time . Treatment Goals Patient/Caregiver Goals improve strength; put a gallon of milk on counter w/good mechancis. Be able to curl PT-OP-C Subjective Start: 06/18/23 13:30 Freq: Status: Active Protocol: Document 07/13/23 14:35 SP (Rec: 07/13/23 15:37 SP [id number]) OP-PT Subjective Patient Comments Patient Comments Pt reports did alot manual last tx and found helped. She did some painting over the weekend, less pain, was ableto pain more straight line horizontal, neck and R shld did feel tiring and some neck tension upon arrival. She states feels more end feel/ range FF supine post manual last tx. PT-OP-F Manual Assessment Start: 06/18/23 13:30 Freq: Status: Active Protocol: Document 06/29/23 14:34 [facility] (Rec: 06/29/23 16:06 [facility] [id number]) Manual Assessments Joint Mobility Assessment Joint Mobility Assessment R 1st rib elevated PT-OP-J Posture/Palpation/Skin Start: 06/18/23 13:30 Freq: Status: Active Protocol: Document 06/29/23 14:34 [facility] (Rec: 06/29/23 16:06 [facility] [id number]) Posture Evaluation [facility] Postural Classification System Ca Postural Classifications Posterior/Posterior Elbow Flexion Test 0 Comments Posture Comments ant tipped scap, IR scap, abd scap, torsos rot to R PT-OP-K Range of Motion Start: 06/18/23 13:30 Freq: Status: Active Protocol: Document 06/29/23 14:34 [facility] (Rec: 06/29/23 16:06 [facility] [id number]) Cervical Spine Range of Motion Cervical Spine Active Degrees Flexion 60 Extension 30 Rotation Left 47 Rotation Right 46 Lateral Flexion Left 32 Lateral Flexion Right 22 Comments pull w/flex 80% tspine rot PT-OP-L Special Tests Start: 06/18/23 13:30 Freq: Status: Active Protocol: Document 06/29/23 14:34 [facility] (Rec: 06/29/23 16:06 [facility] [id number]) Special Tests Cervical Spine Special Tests cranial n testing Test Results WNL except w/tracking especially R- saccades noted VBA screen Comments 138/74; ausciltation of carotid and heart 4 pts wnl Traction Test Results neg Spurling's Test Comments neg Upper Limb Tension Test Test Results 70 deg passive abd L; 30 deg R Neural Special Tests- Upper Body Median Nerve Tension Test Results pos B Radial Nerve Tension Comments Pos B Ulnar Nerve Tension Comments pos R Other Special Tests Special Tests no biceps or brachioradialis response w/reflexes R; WNL triceps B, L slightly dec response w/brachioradialis reflex, WNL biceps PT-OP-M Strength Start: 06/18/23 13:30 Freq: Status: Active Protocol: Document 06/29/23 14:34 [facility] (Rec: 06/29/23 16:06 [facility] [id number]) Shoulder Strength Shoulder Manual Muscle Testing Right Flexion 3+ Fair+ Extension 4- Good- Abduction (C5) 3+ Fair+ External Rotation 3 Fair Internal Rotation 3+ Fair+ Left Flexion 5 Normal Extension 5 Normal Abduction (C5) 5 Normal External Rotation 5 Normal Internal Rotation 5 Normal Elbow/Forearm Strength Elbow and Forearm Manual Muscle Testing Right Flexion (C6) 3+ Fair+ Extension (C7) 4+ Good+ Pronation 3+ Fair+ Supination 3+ Fair+ Comments 3+/5 biceps and brachialis Left Flexion (C6) 5 Normal Extension (C7) 5 Normal Pronation 5 Normal Supination 5 Normal Wrist Strength Wrist Manual Muscle Testing Right Flexion (C7) 5 Normal Extension (C6) 4- Good- Ulnar Deviation 5 Normal Radial Deviation 4- Good- Left Extension (C6) 5 Normal Ulnar Deviation 5 Normal Radial Deviation 5 Normal Hand Ore Grader/Pinch Strength Hand Dominance Hand Dominance Right Hand Strength Right Comments 20kg, 19 kg, 18kg Left Comments 28kg, 24kg,24kg PT-OP-Q Treatments Start: 06/18/23 13:30 Freq: Status: Active Protocol: Document 07/13/23 14:35 SP (Rec: 07/13/23 15:37 [id number]) Therapeutic Exercises Supine Exercises foam roller Supine Exercise Name 1. pec stretch 2. snow constantin 3 . serratus press 4. Ws Side bilateral Resistance 3. 3# DB 1-2 & 4. AROM Reps/Minutes 1. various angles 10 SH 2. 3 reps 3. 10 reps 4. 1 min total 5. 20SH str Comments good response Sidelying Exercises FF Sidelying Exercise Name initiated in PT post manual Side right Resistance AROM>1# DB (good)> 2# DB ( challenge) Comments cues for scap UR & dep into end range abd Sidelying Exercise Name initiated in PT post manual Side right Resistance AROM>1# DB> 2# DB Reps/Minutes 4 reps> 5 reps> 3 reps Comments cues for scap UR & dep into end range open book Sidelying Exercise Name initiated in PT post manual Side right Reps/Minutes 3 reps, 3 reps hold /c 2 breath Comments scapular ROM and ribcage mobility last 2 /c breaths Other Exercises self STMs, mobilization Other Exercise Name R GH jt, 1st rib, AC jt Resistance standing, arm on stair rail Comments Inferior glide: GH, Clavicle then 1st rib- incr mobility if R neck/shld Manual Therapy Treatment Soft Tissue Mobilization sup Body Location R LS distal & UT mid distal Mobilization Type Rolling,Sustained Pressure Intensity/Depth Moderate Comments MWM head turns&nods post Body Location R CS paraspinals & ligamentum nuchae Mobilization Type Rolling Intensity/Depth Moderate Body Position Supine Comments w/flex and chin tucks and rot pec Body Location R prox minor & subclavius Mobilization Type Rolling,Sustained Pressure, Other Intensity/Depth Moderate Body Position Supine Comments /c breath ant Body Location R scalenes Mobilization Type Rolling Intensity/Depth Moderate Body Position Supine Comments w/rot and breath Joint Mobilizations AC Joint R clavicle ant FM Comments caudal pressure into FF & ABD post manual PT-OP-T Assessment and Plan Start: 06/18/23 13:30 Freq: Status: Active Protocol: Document 07/13/23 14:35 SP (Rec: 07/13/23 15:37 SP [id number]) Physical Therapy Assessment Goals activity Doctor Of Optometry Goal (LTG) Pt will be able to lift a gallon of milk onto counter w/ good mechanics LTG Duration 09/21/23 ROM Short Term Goal (STG) Pt will have improved CS rotation to at least 52 deg B w/o inc pain to improve driving ability 07/13/23: stated having to turn trunk to look over shld driving. STG Duration progressing 07/13/23 Doctor Of Optometry Goal (LTG) Pt will have improved CS rotation to at least 60 deg B and ext to at least 50 deg w/o inc pain to improve driving ability and functional activity LTG Duration 09/22/23 strength Short Term Goal (STG) Pt will be indep w/HEP STG Duration 08/06 [facility] Goal (LTG) Pt will have improved strength to at least 4/5 for all RUE MMT to show improved strength to allow greater ease of function LTG Duration 09/20 Assessment Summary Assessment Pt responded well to manual with increased ROM OH FF, ABD, HABD RUE. Ed self inferior glide mobs to R AC,1st rib, GH and review UE and CS AROM over foam roller to support decreased R neck and shld tension painting with reports no pinching end tx. Decreased strength L SL FF challenged >1 # DB. Pt would benefit from continued resisted UE and scapular over foam roller and against gravity, cued for CS fwd neutral during ther ex for reducted recruitment of SCM, UT, scalene reported. Physical Therapy Plan Frequency and Duration Frequency of Treatment 1-2x/wk Duration of treatment (weeks) 12 Plan of Care Start Date 06/29/23 Plan of Care End Date 09/21/23 Therapeutic Interventions Therapeutic Interventions Coordination Training,Home Exercise Program,Joint Mobilizations,Manual Therapy, Neuromuscular Re-education, Patient/Caregiver Education, Self-Care/Home Management,Soft Tissue Mobilization,Taping, Therapeutic Activities, Therapeutic Exercises Modalities Cold Pack/Ice Massage,Electric Stimulation,Hot Packs, Ultrasound Next Visit Focus/Plan Next Note Type Treatment Note Next Visit Plan Check ROM over foam roller, wall pushups, neck stretching/ MWM theracane, self mob R shld : AC, GH, 1st rib. Give HO self mob/open book initiated last tx. POC per PT: check sensation of UE; work on upper thoracic and first rib mobility along w /upper cervical mobility Advance strengthening and review HEP as needed
--- NOTE | 2023-07-15 18:04 | PT.OTN ---
Current Diagnoses Spondylosis without myelopathy or radiculopathy, cervical region (07/15/23) Spinal stenosis, cervical region (07/15/23) Cervical disc disorder at C5-C6 level with radiculopathy (07/15/23) Other cervical disc displacement, unspecified cervical region (07/15/23) Radiculopathy, cervical region (07/15/23) Muscle weakness (generalized) (07/15/23) Abnormal posture (07/15/23) Physical Therapy Treatment Note PT-OP-A Visit Information Start: 06/18/23 13:30 Freq: Status: Active Protocol: Document 07/15/23 14:33 [facility] (Rec: 07/15/23 18:04 [facility] [id number]) Out-Patient Physical Therapy Visit Information Visit Information Visit Type Treatment Note Visit Start Time 14:39 Visit Stop Time 15:17 Visit Number 6 Number of HORSESHOER Visits 0 PT-OP-B Current Condition Start: 06/18/23 13:30 Freq: Status: Active Protocol: Document 06/29/23 14:34 [facility] (Rec: 06/29/23 16:06 [facility] [id number]) Current Condition History of Current Condition Current Complaints R enck pain and RUE weakness History of Current Condition C3-6 ACDF performed in 2021. Pt has continued RUE weakness and neck pain. She still has post neck pain R side. ALONZO occasionally but not as much anymore. Sometimes in sleep, gets tingling in fingers. Did not do PT after surgery or any other treatment. Broke R elbow as a kid and feels like that casues shoulder to sit more fwd. Pt had RUE weakness since aroud2013 and got progressively worse over time . Treatment Goals Patient/Caregiver Goals improve strength; put a gallon of milk on counter w/good mechancis. Be able to curl PT-OP-C Subjective Start: 06/18/23 13:30 Freq: Status: Active Protocol: Document 07/15/23 14:33 [facility] (Rec: 07/15/23 18:04 [facility] [id number]) OP-PT Subjective Patient Comments Patient Comments Pt reports she has been feeling tightness in R neck into pec. Pt reports she was sore for a couple days after last session w/PT and had to ice. Feels like jaw is a little better and tracking better. Has had ALONZO more the past week. PT-OP-F Manual Assessment Start: 06/18/23 13:30 Freq: Status: Active Protocol: Document 06/29/23 14:34 [facility] (Rec: 06/29/23 16:06 [facility] [id number]) Manual Assessments Joint Mobility Assessment Joint Mobility Assessment R 1st rib elevated PT-OP-J Posture/Palpation/Skin Start: 06/18/23 13:30 Freq: Status: Active Protocol: Document 06/29/23 14:34 [facility] (Rec: 06/29/23 16:06 [id number] Posture Evaluation [facility] Postural Classification System Ca Postural Classifications Posterior/Posterior Elbow Flexion Test 0 Comments Posture Comments ant tipped scap, IR scap, abd scap, torsos rot to R PT-OP-K Range of Motion Start: 06/18/23 13:30 Freq: Status: Active Protocol: Document 06/29/23 14:34 [facility] (Rec: 06/29/23 16:06 [facility] [id number]) Cervical Spine Range of Motion Cervical Spine Active Degrees Flexion 60 Extension 30 Rotation Left 47 Rotation Right 46 Lateral Flexion Left 32 Lateral Flexion Right 22 Comments pull w/flex 80% tspine rot PT-OP-L Special Tests Start: 06/18/23 13:30 Freq: Status: Active Protocol: Document 06/29/23 14:34 [facility] (Rec: 06/29/23 16:06 [facility] [id number]) Special Tests Cervical Spine Special Tests cranial n testing Test Results WNL except w/tracking especially R- saccades noted VBA screen Comments 138/74; ausciltation of carotid and heart 4 pts wnl Traction Test Results neg Spurling's Test Comments neg Upper Limb Tension Test Test Results 70 deg passive abd L; 30 deg R Neural Special Tests- Upper Body Median Nerve Tension Test Results pos B Radial Nerve Tension Comments Pos B Ulnar Nerve Tension Comments pos R Other Special Tests Special Tests no biceps or brachioradialis response w/reflexes R; WNL triceps B, L slightly dec response w/brachioradialis reflex, WNL biceps PT-OP-M Strength Start: 06/18/23 13:30 Freq: Status: Active Protocol: Document 06/29/23 14:34 [facility] (Rec: 06/29/23 16:06 [facility] [id number]) Shoulder Strength Shoulder Manual Muscle Testing Right Flexion 3+ Fair+ Extension 4- Good- Abduction (C5) 3+ Fair+ External Rotation 3 Fair Internal Rotation 3+ Fair+ Left Flexion 5 Normal Extension 5 Normal Abduction (C5) 5 Normal External Rotation 5 Normal Internal Rotation 5 Normal Elbow/Forearm Strength Elbow and Forearm Manual Muscle Testing Right Flexion (C6) 3+ Fair+ Extension (C7) 4+ Good+ Pronation 3+ Fair+ Supination 3+ Fair+ Comments 3+/5 biceps and brachialis Left Flexion (C6) 5 Normal Extension (C7) 5 Normal Pronation 5 Normal Supination 5 Normal Wrist Strength Wrist Manual Muscle Testing Right Flexion (C7) 5 Normal Extension (C6) 4- Good- Ulnar Deviation 5 Normal Radial Deviation 4- Good- Left Extension (C6) 5 Normal Ulnar Deviation 5 Normal Radial Deviation 5 Normal Hand Banana Room Cutter/Pinch Strength Hand Dominance Hand Dominance Right Hand Strength Right Comments 20kg, 19 kg, 18kg Left Comments 28kg, 24kg,24kg PT-OP-Q Treatments Start: 06/18/23 13:30 Freq: Status: Active Protocol: Document 07/15/23 14:33 [facility] (Rec: 07/15/23 18:04 [facility] [id number]) Manual Therapy Treatment Soft Tissue Mobilization sup Body Location R LS & UT Mobilization Type Rolling,Sustained Pressure Intensity/Depth Moderate Comments w/cervical rot post Body Location R lat Mobilization Type Rolling,Sustained Pressure Comments w/flex pec Body Location R major/minor Mobilization Type Rolling,Sustained Pressure, Other Intensity/Depth Moderate Body Position Supine Comments /c flex Joint Mobilizations cervical Comments C7 transverse L FM ribs Comments R ribs PA and external torsion 3-5 FM Thoracic Comments R transverse T1-3 FM GH Comments R post translation FM Neuro Re-Education Treatment Other Activities PNF Reps/Duration 8 min Comments 1. post dep sustained scap holds progressed to COI (R); post dep w/irradiation from R UE pivot prone 2. post elevation sustained hold to COI (R) 3. ant dep sustained hold progressed to COI R PT-OP-T Assessment and Plan Start: 06/18/23 13:30 Freq: Status: Active Protocol: Document 07/15/23 14:33 [facility] (Rec: 07/15/23 18:04 [facility] [id number]) Physical Therapy Assessment Goals activity Group Home Goal (LTG) Pt will be able to lift a gallon of milk onto counter w/ good mechanics LTG Duration 6/24/24 ROM Short Term Goal (STG) Pt will have improved CS rotation to at least 52 deg B w/o inc pain to improve driving ability 07/13/23: stated having to turn trunk to look over shld driving. STG Duration progressing 07/13/23 Group Home Goal (LTG) Pt will have improved CS rotation to at least 60 deg B and ext to at least 50 deg w/o inc pain to improve driving ability and functional activity LTG Duration 09/22/23 strength Short Term Goal (STG) Pt will be indep w/HEP STG Duration 08/06 Group Home Goal (LTG) Pt will have improved strength to at least 4/5 for all RUE MMT to show improved strength to allow greater ease of function LTG Duration 09/20 Assessment Summary Assessment pt improves L rot and B SB w/ manual care. Cont work to improve fwd flex. Verbal discussion of exercises and pt reports compliance w/good understanding. Physical Therapy Plan Frequency and Duration Frequency of Treatment 1-2x/wk Duration of treatment (weeks) 12 Plan of Care Start Date 06/29/23 Plan of Care End Date 09/21/23 Next Visit Focus/Plan Next Note Type Treatment Note Next Visit Plan Check ROM over foam roller, wall pushups, neck stretching/ MWM theracane, self mob R shld : AC, GH, 1st rib. Give HO self mob/open book initiated last tx. POC per PT: check sensation of UE; work on upper thoracic and first rib mobility along w /upper cervical mobility Advance strengthening and review HEP as needed
--- NOTE | 2023-07-15 18:07 | PT.OTN ---
Current Diagnoses Spondylosis without myelopathy or radiculopathy, cervical region (07/15/23) Spinal stenosis, cervical region (07/15/23) Cervical disc disorder at C5-C6 level with radiculopathy (07/15/23) Other cervical disc displacement, unspecified cervical region (07/15/23) Radiculopathy, cervical region (07/15/23) Muscle weakness (generalized) (07/15/23) Abnormal posture (07/15/23) Physical Therapy Treatment Note PT-OP-A Visit Information Start: 06/18/23 13:30 Freq: Status: Active Protocol: Document 07/15/23 14:33 [facility] (Rec: 07/15/23 18:04 [facility] [id number]) Out-Patient Physical Therapy Visit Information Visit Information Visit Type Treatment Note Visit Start Time 14:39 Visit Stop Time 15:17 Visit Number 6 Number of LOCOMOTIVE CRANE OPERATOR Visits 0 PT-OP-B Current Condition Start: 06/18/23 13:30 Freq: Status: Active Protocol: Document 06/29/23 14:34 [facility] (Rec: 06/29/23 16:06 [facility] [id number]) Current Condition History of Current Condition Current Complaints R enck pain and RUE weakness History of Current Condition C3-6 ACDF performed in 2021. Pt has continued RUE weakness and neck pain. She still has post neck pain R side. ALONZO occasionally but not as much anymore. Sometimes in sleep, gets tingling in fingers. Did not do PT after surgery or any other treatment. Broke R elbow as a kid and feels like that casues shoulder to sit more fwd. Pt had RUE weakness since ud2013 and got progressively worse over time . Treatment Goals Patient/Caregiver Goals improve strength; put a gallon of milk on counter w/good mechancis. Be able to curl PT-OP-C Subjective Start: 06/18/23 13:30 Freq: Status: Active Protocol: Document 07/15/23 14:33 [facility] (Rec: 07/15/23 18:04 [facility] [id number]) OP-PT Subjective Patient Comments Patient Comments pt reports she feels PT is helping. Has been compliant w/ exercises PT-OP-F Manual Assessment Start: 06/18/23 13:30 Freq: Status: Active Protocol: Document 06/29/23 14:34 [facility] (Rec: 06/29/23 16:06 [facility] [id number]) Manual Assessments Joint Mobility Assessment Joint Mobility Assessment R 1st rib elevated PT-OP-J Posture/Palpation/Skin Start: 06/18/23 13:30 Freq: Status: Active Protocol: Document 06/29/23 14:34 [facility] (Rec: 06/29/23 16:06 [facility] [id number]) Posture Evaluation [facility] Postural Classification System Ca Postural Classifications Posterior/Posterior Elbow Flexion Test 0 Comments Posture Comments ant tipped scap, IR scap, abd scap, torsos rot to R PT-OP-K Range of Motion Start: 06/18/23 13:30 Freq: Status: Active Protocol: Document 06/29/23 14:34 [facility] (Rec: 06/29/23 16:06 [facility] [id number]) Cervical Spine Range of Motion Cervical Spine Active Degrees Flexion 60 Extension 30 Rotation Left 47 Rotation Right 46 Lateral Flexion Left 32 Lateral Flexion Right 22 Comments pull w/flex 80% tspine rot PT-OP-L Special Tests Start: 06/18/23 13:30 Freq: Status: Active Protocol: Document 06/29/23 14:34 [facility] (Rec: 06/29/23 16:06 [facility] [id number]) Special Tests Cervical Spine Special Tests cranial n testing Test Results WNL except w/tracking especially R- saccades noted VBA screen Comments 138/74; ausciltation of carotid and heart 4 pts wnl Traction Test Results neg Spurling's Test Comments neg Upper Limb Tension Test Test Results 70 deg passive abd L; 30 deg R Neural Special Tests- Upper Body Median Nerve Tension Test Results pos B Radial Nerve Tension Comments Pos B Ulnar Nerve Tension Comments pos R Other Special Tests Special Tests no biceps or brachioradialis response w/reflexes R; WNL triceps B, L slightly dec response w/brachioradialis reflex, WNL biceps PT-OP-M Strength Start: 06/18/23 13:30 Freq: Status: Active Protocol: Document 06/29/23 14:34 [facility] (Rec: 06/29/23 16:06 [facility] [id number]) Shoulder Strength Shoulder Manual Muscle Testing Right Flexion 3+ Fair+ Extension 4- Good- Abduction (C5) 3+ Fair+ External Rotation 3 Fair Internal Rotation 3+ Fair+ Left Flexion 5 Normal Extension 5 Normal Abduction (C5) 5 Normal External Rotation 5 Normal Internal Rotation 5 Normal Elbow/Forearm Strength Elbow and Forearm Manual Muscle Testing Right Flexion (C6) 3+ Fair+ Extension (C7) 4+ Good+ Pronation 3+ Fair+ Supination 3+ Fair+ Comments 3+/5 biceps and brachialis Left Flexion (C6) 5 Normal Extension (C7) 5 Normal Pronation 5 Normal Supination 5 Normal Wrist Strength Wrist Manual Muscle Testing Right Flexion (C7) 5 Normal Extension (C6) 4- Good- Ulnar Deviation 5 Normal Radial Deviation 4- Good- Left Extension (C6) 5 Normal Ulnar Deviation 5 Normal Radial Deviation 5 Normal Hand Band Cutting Machine Operator/Pinch Strength Hand Dominance Hand Dominance Right Hand Strength Right Comments 20kg, 19 kg, 18kg Left Comments 28kg, 24kg,24kg PT-OP-Q Treatments Start: 06/18/23 13:30 Freq: Status: Active Protocol: Document 07/15/23 14:33 [facility] (Rec: 07/15/23 18:04 [facility] [id number]) Manual Therapy Treatment Soft Tissue Mobilization sup Body Location R LS & UT Mobilization Type Rolling,Sustained Pressure Intensity/Depth Moderate Comments w/cervical rot post Body Location R lat Mobilization Type Rolling,Sustained Pressure Comments w/flex pec Body Location R major/minor Mobilization Type Rolling,Sustained Pressure, Other Intensity/Depth Moderate Body Position Supine Comments /c flex Joint Mobilizations cervical Comments C7 transverse L FM ribs Comments R ribs PA and external torsion 3-5 FM Thoracic Comments R transverse T1-3 FM GH Comments R post translation FM Neuro Re-Education Treatment Other Activities PNF Reps/Duration 8 min Comments 1. post dep sustained scap holds progressed to COI (R); post dep w/irradiation from R UE pivot prone 2. post elevation sustained hold to COI (R) 3. ant dep sustained hold progressed to COI R PT-OP-T Assessment and Plan Start: 06/18/23 13:30 Freq: Status: Active Protocol: Document 07/15/23 14:33 [facility] (Rec: 07/15/23 18:04 [facility] [id number]) Physical Therapy Assessment Goals activity Usp Goal (LTG) Pt will be able to lift a gallon of milk onto counter w/ good mechanics LTG Duration 09/21/23 ROM Short Term Goal (STG) Pt will have improved CS rotation to at least 52 deg B w/o inc pain to improve driving ability 07/13/23: stated having to turn trunk to look over shld driving. STG Duration progressing 07/13/23 Usp Goal (LTG) Pt will have improved CS rotation to at least 60 deg B and ext to at least 50 deg w/o inc pain to improve driving ability and functional activity LTG Duration 09/22/23 strength Short Term Goal (STG) Pt will be indep w/HEP STG Duration 08/06 Usp Goal (LTG) Pt will have improved strength to at least 4/5 for all RUE MMT to show improved strength to allow greater ease of function LTG Duration 09/20 Assessment Summary Assessment pt improves L rot and B SB w/ manual care. Cont work to improve fwd flex. Verbal discussion of exercises and pt reports compliance w/good understanding. Physical Therapy Plan Frequency and Duration Frequency of Treatment 1-2x/wk Duration of treatment (weeks) 12 Plan of Care Start Date 06/29/23 Plan of Care End Date 09/21/23 Next Visit Focus/Plan Next Note Type Treatment Note Next Visit Plan Check ROM over foam roller, wall pushups, neck stretching/ MWM theracane, self mob R shld : AC, GH, 1st rib. Give HO self mob/open book initiated last tx. POC per PT: check sensation of UE; work on upper thoracic and first rib mobility along w /upper cervical mobility Advance strengthening and review HEP as needed
--- NOTE | 2023-07-21 16:28 | PT.OTN ---
Current Diagnoses Spondylosis without myelopathy or radiculopathy, cervical region (07/21/23) Spinal stenosis, cervical region (07/21/23) Cervical disc disorder at C5-C6 level with radiculopathy (07/21/23) Other cervical disc displacement, unspecified cervical region (07/21/23) Radiculopathy, cervical region (07/21/23) Muscle weakness (generalized) (07/21/23) Abnormal posture (07/21/23) Physical Therapy Treatment Note PT-OP-A Visit Information Start: 06/18/23 13:30 Freq: Status: Active Protocol: Document 07/21/23 16:07 (Rec: 07/21/23 16:28 [id number]) Out-Patient Physical Therapy Visit Information Visit Information Visit Type Treatment Note Visit Start Time 15:17 Visit Stop Time 16:57 Visit Number 7 PT-OP-B Current Condition Start: 06/18/23 13:30 Freq: Status: Active Protocol: Document 06/29/23 14:34 [facility] (Rec: 06/29/23 16:06 [facility] [id number]) Current Condition History of Current Condition Current Complaints R enck pain and RUE weakness History of Current Condition C3-6 ACDF performed in 2021. Pt has continued RUE weakness and neck pain. She still has post neck pain R side. ALONZO occasionally but not as much anymore. Sometimes in sleep, gets tingling in fingers. Did not do PT after surgery or any other treatment. Broke R elbow as a kid and feels like that casues shoulder to sit more fwd. Pt had RUE weakness since 2013 and got progressively worse over time . Treatment Goals Patient/Caregiver Goals improve strength; put a gallon of milk on counter w/good mechancis. Be able to curl PT-OP-C Subjective Start: 06/18/23 13:30 Freq: Status: Active Protocol: Document 07/21/23 16:07 [facility] (Rec: 07/21/23 16:28 [id number]) OP-PT Subjective Patient Comments Patient Comments Pt reports doing well, compliant with HEP, no new c/o this session. PT-OP-F Manual Assessment Start: 06/18/23 13:30 Freq: Status: Active Protocol: Document 06/29/23 14:34 [facility] (Rec: 06/29/23 16:06 [facility] [id number]) Manual Assessments Joint Mobility Assessment Joint Mobility Assessment R 1st rib elevated PT-OP-J Posture/Palpation/Skin Start: 06/18/23 13:30 Freq: Status: Active Protocol: Document 06/29/23 14:34 [facility] (Rec: 06/29/23 16:06 [facility] [id number]) Posture Evaluation [facility] Postural Classification System Ca Postural Classifications Posterior/Posterior Elbow Flexion Test 0 Comments Posture Comments ant tipped scap, IR scap, abd scap, torsos rot to R PT-OP-K Range of Motion Start: 06/18/23 13:30 Freq: Status: Active Protocol: Document 06/29/23 14:34 [facility] (Rec: 06/29/23 16:06 [facility] [id number]) Cervical Spine Range of Motion Cervical Spine Active Degrees Flexion 60 Extension 30 Rotation Left 47 Rotation Right 46 Lateral Flexion Left 32 Lateral Flexion Right 22 Comments pull w/flex 80% tspine rot PT-OP-L Special Tests Start: 06/18/23 13:30 Freq: Status: Active Protocol: Document 06/29/23 14:34 [facility] (Rec: 06/29/23 16:06 [facility] [id number]) Special Tests Cervical Spine Special Tests cranial n testing Test Results WNL except w/tracking especially R- saccades noted VBA screen Comments 138/74; ausciltation of carotid and heart 4 pts wnl Traction Test Results neg Spurling's Test Comments neg Upper Limb Tension Test Test Results 70 deg passive abd L; 30 deg R Neural Special Tests- Upper Body Median Nerve Tension Test Results pos B Radial Nerve Tension Comments Pos B Ulnar Nerve Tension Comments pos R Other Special Tests Special Tests no biceps or brachioradialis response w/reflexes R; WNL triceps B, L slightly dec response w/brachioradialis reflex, WNL biceps PT-OP-M Strength Start: 06/18/23 13:30 Freq: Status: Active Protocol: Document 06/29/23 14:34 [facility] (Rec: 06/29/23 16:06 [facility] [id number]) Shoulder Strength Shoulder Manual Muscle Testing Right Flexion 3+ Fair+ Extension 4- Good- Abduction (C5) 3+ Fair+ External Rotation 3 Fair Internal Rotation 3+ Fair+ Left Flexion 5 Normal Extension 5 Normal Abduction (C5) 5 Normal External Rotation 5 Normal Internal Rotation 5 Normal Elbow/Forearm Strength Elbow and Forearm Manual Muscle Testing Right Flexion (C6) 3+ Fair+ Extension (C7) 4+ Good+ Pronation 3+ Fair+ Supination 3+ Fair+ Comments 3+/5 biceps and brachialis Left Flexion (C6) 5 Normal Extension (C7) 5 Normal Pronation 5 Normal Supination 5 Normal Wrist Strength Wrist Manual Muscle Testing Right Flexion (C7) 5 Normal Extension (C6) 4- Good- Ulnar Deviation 5 Normal Radial Deviation 4- Good- Left Extension (C6) 5 Normal Ulnar Deviation 5 Normal Radial Deviation 5 Normal Hand Shipwright Apprentice/Pinch Strength Hand Dominance Hand Dominance Right Hand Strength Right Comments 20kg, 19 kg, 18kg Left Comments 28kg, 24kg,24kg PT-OP-Q Treatments Start: 06/18/23 13:30 Freq: Status: Active Protocol: Document 07/21/23 16:07 [facility] (Rec: 07/21/23 16:28 [facility] [id number]) Therapeutic Exercises Supine Exercises FF Supine Exercise Name Forward Flexion Side bilateral Resistance AROM Reps/Minutes x2 min Standing Exercises Flex Standing Exercise Name Shoulder Fwd Flex- scapular plane, wrist in neutral Side right Resistance 2# dumbell Reps/Minutes x10 Comments cues for posture, good tolerance no pain wall push ups Standing Exercise Name 1. W 2. Mary Jo- hand positions Side bilateral Resistance AROM Equipment Used added to HEP Reps/Minutes x10 each Comments verbal and tactile cues for scapular rectraction and core stabilization IR Side right Resistance TB #3 hoopa green Equipment Used towel roll under arm Reps/Minutes 2 x 10 Comments cues for cervical mm relaxtion , good carryover of postural alignment ext Standing Exercise Name rows and ext Side bilateral Resistance TB # 3 hoopa green Reps/Minutes 15 ER Standing Exercise Name shoulder ER Side right Resistance Level 1 TB Equipment Used towel roll under arm Reps/Minutes 2 x 10 Comments Cues for cervical mm relaxation, good carryover of postural alignment curls Standing Exercise Name Bicep: 1. in supination 2. pronation 3. in neutral Side right Resistance 3# DB ea hand Equipment Used towel roll under R arm Reps/Minutes 10 ea Comments occ cue scap retract with last few reps Manual Therapy Treatment Soft Tissue Mobilization sup Body Location R LS & UT Mobilization Type Rolling,Sustained Pressure Intensity/Depth Moderate Body Position supine/sidelying Comments cues for breathwork, mm relaxation post Body Location Cervical spine paraspinals Mobilization Type Rolling,Sustained Pressure Intensity/Depth Moderate Body Position supine/sidelying Comments cues for breathwork pec Body Location R major/minor, subclavius Mobilization Type Rolling,Sustained Pressure, Other Intensity/Depth Moderate Body Position Supine ant Body Location R scalenes Mobilization Type Rolling Intensity/Depth Moderate Body Position Supine Comments cues for breathwork PT-OP-T Assessment and Plan Start: 06/18/23 13:30 Freq: Status: Active Protocol: Document 07/21/23 16:07 (Rec: 07/21/23 16:28 [id number]) Physical Therapy Assessment Goals activity Automatic Serging Machine Operator Goal (LTG) Pt will be able to lift a gallon of milk onto counter w/ good mechanics LTG Duration 09/21/23 ROM Short Term Goal (STG) Pt will have improved CS rotation to at least 52 deg B w/o inc pain to improve driving ability 07/13/23: stated having to turn trunk to look over shld driving. STG Duration progressing 07/13/23 Custodial Goal (LTG) Pt will have improved CS rotation to at least 60 deg B and ext to at least 50 deg w/o inc pain to improve driving ability and functional activity LTG Duration 09/22/23 strength Short Term Goal (STG) Pt will be indep w/HEP STG Duration 08/06 Custodial Goal (LTG) Pt will have improved strength to at least 4/5 for all RUE MMT to show improved strength to allow greater ease of function LTG Duration 09/20 Assessment Summary Assessment Continued focus on manual therapy for increased ROM, tissue relaxation, palpable decrease in tension post manual. Pt R UE quick to fatigue during exercises this session, requiring extended rest between sets for mm recovery. Initiated FF in scapular plane this session with light weight, good tolerance no pain, cues for postural alignment and initial setup. Reviewed HEP ex this session, cues required for initial form and setup of exercises, good carryover. verbal and tactile cues required for wall pushups, cueing scapular retraction and core stabilization, improved with repetitions and pt awareness. Physical Therapy Plan Frequency and Duration Frequency of Treatment 1-2x/wk Duration of treatment (weeks) 12 Plan of Care Start Date 06/29/23 Plan of Care End Date 09/21/23 Therapeutic Interventions Therapeutic Interventions Coordination Training,Home Exercise Program,Joint Mobilizations,Manual Therapy, Neuromuscular Re-education, Patient/Caregiver Education, Self-Care/Home Management,Soft Tissue Mobilization,Taping, Therapeutic Activities, Therapeutic Exercises Modalities Cold Pack/Ice Massage,Electric Stimulation,Hot Packs, Ultrasound Next Visit Focus/Plan Next Note Type Treatment Note Next Visit Plan Check ROM over foam roller, wall pushups, neck stretching/ MWM theracane, self mob R shld : AC, GH, 1st rib. Give HO self mob/open book initiated last tx. POC per PT: check sensation of UE; work on upper thoracic and first rib mobility along w /upper cervical mobility Advance strengthening and review HEP as needed
--- NOTE | 2023-07-28 16:53 | PT.OTN ---
Current Diagnoses Spondylosis without myelopathy or radiculopathy, cervical region (07/28/23) Spinal stenosis, cervical region (07/28/23) Cervical disc disorder at C5-C6 level with radiculopathy (07/28/23) Other cervical disc displacement, unspecified cervical region (07/28/23) Radiculopathy, cervical region (07/28/23) Muscle weakness (generalized) (07/28/23) Abnormal posture (07/28/23) Physical Therapy Treatment Note PT-OP-A Visit Information Start: 06/18/23 13:30 Freq: Status: Active Protocol: Document 07/28/23 14:32 NBM (Rec: 07/28/23 16:53 [facility] [id number]) Out-Patient Physical Therapy Visit Information Visit Information Visit Type Treatment Note Visit Start Time 15:26 Visit Stop Time 16:06 Visit Number 8 Precautions Precautions 2021: ACDF C3-6. PT-OP-B Current Condition Start: 06/18/23 13:30 Freq: Status: Active Protocol: Document 06/29/23 14:34 [facility] (Rec: 06/29/23 16:06 [facility] [id number]) Current Condition History of Current Condition Current Complaints R enck pain and RUE weakness History of Current Condition C3-6 ACDF performed in 2021. Pt has continued RUE weakness and neck pain. She still has post neck pain R side. ALONZO occasionally but not as much anymore. Sometimes in sleep, gets tingling in fingers. Did not do PT after surgery or any other treatment. Broke R elbow as a kid and feels like that casues shoulder to sit more fwd. Pt had RUE weakness since aroudn 2013 and got progressively worse over time . Treatment Goals Patient/Caregiver Goals improve strength; put a gallon of milk on counter w/good mechancis. Be able to curl PT-OP-C Subjective Start: 06/18/23 13:30 Freq: Status: Active Protocol: Document 07/28/23 14:32 NBM (Rec: 07/28/23 16:53 [facility] [id number]) OP-PT Subjective Patient Comments Patient Comments Mandy reports R side neck pain 5 /10. PT-OP-F Manual Assessment Start: 06/18/23 13:30 Freq: Status: Active Protocol: Document 06/29/23 14:34 [facility] (Rec: 06/29/23 16:06 [facility] [id number]) Manual Assessments Joint Mobility Assessment Joint Mobility Assessment R 1st rib elevated PT-OP-J Posture/Palpation/Skin Start: 06/18/23 13:30 Freq: Status: Active Protocol: Document 06/29/23 14:34 [facility] (Rec: 06/29/23 16:06 [facility] [id number]) Posture Evaluation [facility] Postural Classification System Ca Postural Classifications Posterior/Posterior Elbow Flexion Test 0 Comments Posture Comments ant tipped scap, IR scap, abd scap, torsos rot to R PT-OP-K Range of Motion Start: 06/18/23 13:30 Freq: Status: Active Protocol: Document 06/29/23 14:34 [facility] (Rec: 06/29/23 16:06 [facility] [id number]) Cervical Spine Range of Motion Cervical Spine Active Degrees Flexion 60 Extension 30 Rotation Left 47 Rotation Right 46 Lateral Flexion Left 32 Lateral Flexion Right 22 Comments pull w/flex 80% tspine rot PT-OP-L Special Tests Start: 06/18/23 13:30 Freq: Status: Active Protocol: Document 06/29/23 14:34 [facility] (Rec: 06/29/23 16:06 [facility] [id number]) Special Tests Cervical Spine Special Tests cranial n testing Test Results WNL except w/tracking especially R- saccades noted VBA screen Comments 138/74; ausciltation of carotid and heart 4 pts wnl Traction Test Results neg Spurling's Test Comments neg Upper Limb Tension Test Test Results 70 deg passive abd L; 30 deg R Neural Special Tests- Upper Body Median Nerve Tension Test Results pos B Radial Nerve Tension Comments Pos B Ulnar Nerve Tension Comments pos R Other Special Tests Special Tests no biceps or brachioradialis response w/reflexes R; WNL triceps B, L slightly dec response w/brachioradialis reflex, WNL biceps PT-OP-M Strength Start: 06/18/23 13:30 Freq: Status: Active Protocol: Document 06/29/23 14:34 [facility] (Rec: 06/29/23 16:06 [facility] [id number]) Shoulder Strength Shoulder Manual Muscle Testing Right Flexion 3+ Fair+ Extension 4- Good- Abduction (C5) 3+ Fair+ External Rotation 3 Fair Internal Rotation 3+ Fair+ Left Flexion 5 Normal Extension 5 Normal Abduction (C5) 5 Normal External Rotation 5 Normal Internal Rotation 5 Normal Elbow/Forearm Strength Elbow and Forearm Manual Muscle Testing Right Flexion (C6) 3+ Fair+ Extension (C7) 4+ Good+ Pronation 3+ Fair+ Supination 3+ Fair+ Comments 3+/5 biceps and brachialis Left Flexion (C6) 5 Normal Extension (C7) 5 Normal Pronation 5 Normal Supination 5 Normal Wrist Strength Wrist Manual Muscle Testing Right Flexion (C7) 5 Normal Extension (C6) 4- Good- Ulnar Deviation 5 Normal Radial Deviation 4- Good- Left Extension (C6) 5 Normal Ulnar Deviation 5 Normal Radial Deviation 5 Normal Hand Submarine Worker/Pinch Strength Hand Dominance Hand Dominance Right Hand Strength Right Comments 20kg, 19 kg, 18kg Left Comments 28kg, 24kg,24kg PT-OP-Q Treatments Start: 06/18/23 13:30 Freq: Status: Active Protocol: Document 07/28/23 14:32 NBM (Rec: 07/28/23 16:53 [facility] [id number]) Therapeutic Exercises Sidelying Exercises FF Sidelying Exercise Name post manual Side right Resistance #1 DB (2# attempted, too challenging) Comments initial tactile cues for scap UR & dep into end range abd Sidelying Exercise Name post manual Side right Resistance 2# DB>3#DB Reps/Minutes x10 open book Sidelying Exercise Name post manual Side right Reps/Minutes 3 reps, 3 reps hold /c 2 breath Comments scapular ROM and ribcage mobility last 2 /c breaths Manual Therapy Treatment Soft Tissue Mobilization sup Body Location R LS & UT Mobilization Type Rolling,Sustained Pressure, Trigger Point Release,Other Intensity/Depth Moderate Body Position supine/sidelying Comments cues for breathwork, mm relaxation manual pin and stretch to R LS and UT x30s ea post Body Location Cervical spine paraspinals Mobilization Type Rolling,Sustained Pressure Intensity/Depth Moderate Body Position supine/sidelying Comments cues for breathwork pec Body Location R major/minor, subclavius Mobilization Type Rolling,Sustained Pressure, Other Intensity/Depth Moderate Body Position Supine ant Body Location R scalenes Mobilization Type Rolling,Other Intensity/Depth Moderate Body Position Supine Comments cues for breathwork manual pin and stretch x30 s Joint Mobilizations ST Joint scapulothoracic Direction elevation/depression, protraction/retraction, rotation, tilt Grade II Body Position Sidelying Comments w/ functional movement; no pain w/ R shoulder abduction. PT-OP-T Assessment and Plan Start: 06/18/23 13:30 Freq: Status: Active Protocol: Document 07/28/23 14:32 NBM (Rec: 07/28/23 16:53 [facility] [id number]) Physical Therapy Assessment Goals activity Research Laboratory Technician Goal (LTG) Pt will be able to lift a gallon of milk onto counter w/ good mechanics LTG Duration 09/21/23 ROM Short Term Goal (STG) Pt will have improved CS rotation to at least 52 deg B w/o inc pain to improve driving ability 07/13/23: stated having to turn trunk to look over shld driving. STG Duration progressing 07/13/23 Intermediate Goal (LTG) Pt will have improved CS rotation to at least 60 deg B and ext to at least 50 deg w/o inc pain to improve driving ability and functional activity LTG Duration 09/22/23 strength Short Term Goal (STG) Pt will be indep w/HEP STG Duration 08/06 Research Laboratory Technician Goal (LTG) Pt will have improved strength to at least 4/5 for all RUE MMT to show improved strength to allow greater ease of function LTG Duration 09/20 Assessment Summary Assessment Pt presents w/ increased pain 5/10 today. Treatment focus on manual therapy and UE strengthening. Positive feedback response to R scapulothoracic joint mobs w/ FM and manual cervical stretching. Pt is able to perform R shoulder abduction with no pain during R ST joint mobilizations. Pt is able to progress R sidelying shoulder abduction from 2# to 3# without pain after manual therapy. Pt pain improves from 5/10 start of session to 0/10 end of session. Physical Therapy Plan Frequency and Duration Frequency of Treatment 1-2x/wk Duration of treatment (weeks) 12 Plan of Care Start Date 06/29/23 Plan of Care End Date 09/21/23 Therapeutic Interventions Therapeutic Interventions Coordination Training,Home Exercise Program,Joint Mobilizations,Manual Therapy, Neuromuscular Re-education, Patient/Caregiver Education, Self-Care/Home Management,Soft Tissue Mobilization,Taping, Therapeutic Activities, Therapeutic Exercises Modalities Cold Pack/Ice Massage,Electric Stimulation,Hot Packs, Ultrasound Next Visit Focus/Plan Next Note Type Treatment Note Next Visit Plan Check ROM over foam roller, wall pushups, neck stretching/ MWM theracane, self mob R shld : AC, GH, 1st rib. Give HO self mob/open book initiated last tx. POC per PT: check sensation of UE; work on upper thoracic and first rib mobility along w /upper cervical mobility Advance strengthening and review HEP as needed
--- NOTE | 2023-08-04 16:17 | PT.OTN ---
Current Diagnoses Spondylosis without myelopathy or radiculopathy, cervical region (08/04/23) Spinal stenosis, cervical region (08/04/23) Cervical disc disorder at C5-C6 level with radiculopathy (08/04/23) Other cervical disc displacement, unspecified cervical region (08/04/23) Radiculopathy, cervical region (08/04/23) Muscle weakness (generalized) (08/04/23) Abnormal posture (08/04/23) Physical Therapy Treatment Note PT-OP-A Visit Information Start: 06/18/23 13:30 Freq: Status: Active Protocol: Document 08/04/23 15:29 SW (Rec: 08/04/23 16:17 [id number]) Out-Patient Physical Therapy Visit Information Visit Information Visit Type Treatment Note Visit Note LEG MAN late Visit Start Time 15:25 Visit Stop Time 16:05 Visit Number 9 Number of LEG MAN Visits 3 Precautions Precautions 2021: ACDF C3-6. PT-OP-B Current Condition Start: 06/18/23 13:30 Freq: Status: Active Protocol: Document 06/29/23 14:34 [facility] (Rec: 06/29/23 16:06 [facility] [id number]) Current Condition History of Current Condition Current Complaints R enck pain and RUE weakness History of Current Condition C3-6 ACDF performed in 2021. Pt has continued RUE weakness and neck pain. She still has post neck pain R side. ALONZO occasionally but not as much anymore. Sometimes in sleep, gets tingling in fingers. Did not do PT after surgery or any other treatment. Broke R elbow as a kid and feels like that casues shoulder to sit more fwd. Pt had RUE weakness since aroudn 2013 and got progressively worse over time . Treatment Goals Patient/Caregiver Goals improve strength; put a gallon of milk on counter w/good mechancis. Be able to curl PT-OP-C Subjective Start: 06/18/23 13:30 Freq: Status: Active Protocol: Document 08/04/23 15:29 SW (Rec: 08/04/23 16:17 SW [id number]) OP-PT Subjective Patient Comments Patient Comments Pt reports lesser pain and increased mobility. Pt reports getting a massage tomorrow. PT-OP-F Manual Assessment Start: 06/18/23 13:30 Freq: Status: Active Protocol: Document 06/29/23 14:34 [facility] (Rec: 06/29/23 16:06 [facility] [id number]) Manual Assessments Joint Mobility Assessment Joint Mobility Assessment R 1st rib elevated PT-OP-J Posture/Palpation/Skin Start: 06/18/23 13:30 Freq: Status: Active Protocol: Document 06/29/23 14:34 [facility] (Rec: 06/29/23 16:06 [facility] [id number]) Posture Evaluation [facility] Postural Classification System [facility] Postural Classifications Posterior/Posterior Elbow Flexion Test 0 Comments Posture Comments ant tipped scap, IR scap, abd scap, torsos rot to R PT-OP-K Range of Motion Start: 06/18/23 13:30 Freq: Status: Active Protocol: Document 06/29/23 14:34 [facility] (Rec: 06/29/23 16:06 [facility] [id number]) Cervical Spine Range of Motion Cervical Spine Active Degrees Flexion 60 Extension 30 Rotation Left 47 Rotation Right 46 Lateral Flexion Left 32 Lateral Flexion Right 22 Comments pull w/flex 80% tspine rot PT-OP-L Special Tests Start: 06/18/23 13:30 Freq: Status: Active Protocol: Document 06/29/23 14:34 [facility] (Rec: 06/29/23 16:06 [facility] [id number]) Special Tests Cervical Spine Special Tests cranial n testing Test Results WNL except w/tracking especially R- saccades noted VBA screen Comments 138/74; ausciltation of carotid and heart 4 pts wnl Traction Test Results neg Spurling's Test Comments neg Upper Limb Tension Test Test Results 70 deg passive abd L; 30 deg R Neural Special Tests- Upper Body Median Nerve Tension Test Results pos B Radial Nerve Tension Comments Pos B Ulnar Nerve Tension Comments pos R Other Special Tests Special Tests no biceps or brachioradialis response w/reflexes R; WNL triceps B, L slightly dec response w/brachioradialis reflex, WNL biceps PT-OP-M Strength Start: 06/18/23 13:30 Freq: Status: Active Protocol: Document 06/29/23 14:34 [facility] (Rec: 06/29/23 16:06 [facility] [id number]) Shoulder Strength Shoulder Manual Muscle Testing Right Flexion 3+ Fair+ Extension 4- Good- Abduction (C5) 3+ Fair+ External Rotation 3 Fair Internal Rotation 3+ Fair+ Left Flexion 5 Normal Extension 5 Normal Abduction (C5) 5 Normal External Rotation 5 Normal Internal Rotation 5 Normal Elbow/Forearm Strength Elbow and Forearm Manual Muscle Testing Right Flexion (C6) 3+ Fair+ Extension (C7) 4+ Good+ Pronation 3+ Fair+ Supination 3+ Fair+ Comments 3+/5 biceps and brachialis Left Flexion (C6) 5 Normal Extension (C7) 5 Normal Pronation 5 Normal Supination 5 Normal Wrist Strength Wrist Manual Muscle Testing Right Flexion (C7) 5 Normal Extension (C6) 4- Good- Ulnar Deviation 5 Normal Radial Deviation 4- Good- Left Extension (C6) 5 Normal Ulnar Deviation 5 Normal Radial Deviation 5 Normal Hand Manager English/Pinch Strength Hand Dominance Hand Dominance Right Hand Strength Right Comments 20kg, 19 kg, 18kg Left Comments 28kg, 24kg,24kg PT-OP-Q Treatments Start: 06/18/23 13:30 Freq: Status: Active Protocol: Document 08/04/23 15:29 SW (Rec: 08/04/23 16:17 [id number]) Therapeutic Exercises Sidelying Exercises open book Sidelying Exercise Name post manual Side right Reps/Minutes 3 reps, 3 reps hold /c 2 breath Comments scapular ROM and ribcage mobility last 2 /c breaths Standing Exercises Abd Standing Exercise Name shoulder Abduction Side bilateral Equipment Used 1#>2# Reps/Minutes 2x10 Flex Standing Exercise Name Shoulder Fwd Flex- scapular plane, wrist in neutral Side right Resistance 2# dumbell Reps/Minutes 2x10 Comments cues for posture, good tolerance no pain curls Standing Exercise Name Bicep: 1. in supination 2. pronation 3. in neutral Side right Resistance 3# DB ea hand Equipment Used towel roll under R arm Reps/Minutes 10 ea Comments occ cue scap retract with last few reps Manual Therapy Treatment Soft Tissue Mobilization sup Body Location R LS & UT Mobilization Type Rolling,Sustained Pressure, Trigger Point Release,Other Intensity/Depth Moderate Body Position supine/sidelying Comments cues for breathwork, mm relaxation manual pin and stretch to R LS and UT x30s ea post Body Location Cervical spine paraspinals Mobilization Type Rolling,Sustained Pressure Intensity/Depth Moderate Body Position supine/sidelying Comments cues for breathwork pec Body Location R major/minor, subclavius Mobilization Type Rolling,Sustained Pressure, Other Intensity/Depth Moderate Body Position Supine ant Body Location R scalenes Mobilization Type Rolling,Other Intensity/Depth Moderate Body Position Supine Comments cues for breathwork manual pin and stretch x30 s Joint Mobilizations ST Joint scapulothoracic Direction elevation/depression, protraction/retraction, rotation, tilt Grade II Body Position Sidelying Comments w/ functional movement; no pain w/ R shoulder abduction. PT-OP-T Assessment and Plan Start: 06/18/23 13:30 Freq: Status: Active Protocol: Document 08/04/23 15:29 SW (Rec: 08/04/23 16:17 [id number]) Physical Therapy Assessment Goals activity Dining Room Attendant Cafeteria Goal (LTG) Pt will be able to lift a gallon of milk onto counter w/ good mechanics LTG Duration 09/21/23 ROM Short Term Goal (STG) Pt will have improved CS rotation to at least 52 deg B w/o inc pain to improve driving ability 07/13/23: stated having to turn trunk to look over shld driving. STG Duration progressing 07/13/23 Dining Room Attendant Cafeter[employer] Goal (LTG) Pt will have improved CS rotation to at least 60 deg B and ext to at least 50 deg w/o inc pain to improve driving ability and functional activity LTG Duration 09/22/23 strength Short Term Goal (STG) Pt will be indep w/HEP STG Duration 08/06 Dining Room Attendant Cafeter[employer] Goal (LTG) Pt will have improved strength to at least 4/5 for all RUE MMT to show improved strength to allow greater ease of function LTG Duration 09/20 Assessment Summary Assessment Continued focus on manual therapy this session to decrease mm tension, good tolerance, pt reports feeling looser. Continued strengthening, pt fatigue with increasing reps, cued pt for compensations and decreasing over activation of UT during exercises. Plan to assess pt tolerance next session and progress as able. Physical Therapy Plan Frequency and Duration Frequency of Treatment 1-2x/wk Duration of treatment (weeks) 12 Plan of Care Start Date 06/29/23 Plan of Care End Date 09/21/23 Therapeutic Interventions Therapeutic Interventions Coordination Training,Home Exercise Program,Joint Mobilizations,Manual Therapy, Neuromuscular Re-education, Patient/Caregiver Education, Self-Care/Home Management,Soft Tissue Mobilization,Taping, Therapeutic Activities, Therapeutic Exercises Modalities Cold Pack/Ice Massage,Electric Stimulation,Hot Packs, Ultrasound Next Visit Focus/Plan Next Note Type Treatment Note Next Visit Plan Check ROM over foam roller, wall pushups, neck stretching/ MWM theracane, self mob R shld : AC, GH, 1st rib. Give HO self mob/open book initiated last tx. POC per PT: check sensation of UE; work on upper thoracic and first rib mobility along w /upper cervical mobility Advance strengthening and review HEP as needed
--- NOTE | 2023-08-12 16:07 | PT.OTN ---
Current Diagnoses Spondylosis without myelopathy or radiculopathy, cervical region (08/12/23) Spinal stenosis, cervical region (08/12/23) Cervical disc disorder at C5-C6 level with radiculopathy (08/12/23) Other cervical disc displacement, unspecified cervical region (08/12/23) Radiculopathy, cervical region (08/12/23) Muscle weakness (generalized) (08/12/23) Abnormal posture (08/12/23) Physical Therapy Treatment Note PT-OP-A Visit Information Start: 06/18/23 13:30 Freq: Status: Active Protocol: Document 08/12/23 15:21 [facility] (Rec: 08/12/23 16:06 [facility] [id number]) Out-Patient Physical Therapy Visit Information Visit Information Visit Type Progress Note Visit Start Time 15:20 Visit Stop Time 16:00 Visit Number 10 Number of GOLF SALES MANAGER Visits 0 PT-OP-B Current Condition Start: 06/18/23 13:30 Freq: Status: Active Protocol: Document 06/29/23 14:34 [facility] (Rec: 06/29/23 16:06 [facility] [id number]) Current Condition History of Current Condition Current Complaints R enck pain and RUE weakness History of Current Condition C3-6 ACDF performed in 2021. Pt has continued RUE weakness and neck pain. She still has post neck pain R side. ALONZO occasionally but not as much anymore. Sometimes in sleep, gets tingling in fingers. Did not do PT after surgery or any other treatment. Broke R elbow as a kid and feels like that casues shoulder to sit more fwd. Pt had RUE weakness since aroud2013 and got progressively worse over time . Treatment Goals Patient/Caregiver Goals improve strength; put a gallon of milk on counter w/good mechancis. Be able to curl PT-OP-C Subjective Start: 06/18/23 13:30 Freq: Status: Active Protocol: Document 08/12/23 15:21 [facility] (Rec: 08/12/23 16:06 [facility] [id number]) OP-PT Subjective Patient Comments Patient Comments Pt reports since saw [facility]iki it was really good. She had a massage from a LMT and that helped with pain. Pain is better but not seeing much difference in strength PT-OP-F Manual Assessment Start: 06/18/23 13:30 Freq: Status: Active Protocol: Document 06/29/23 14:34 [facility] (Rec: 06/29/23 16:06 [facility] [id number]) Manual Assessments Joint Mobility Assessment Joint Mobility Assessment R 1st rib elevated PT-OP-J Posture/Palpation/Skin Start: 06/18/23 13:30 Freq: Status: Active Protocol: Document 06/29/23 14:34 [facility] (Rec: 06/29/23 16:06 [facility] [id number]) Posture Evaluation [facility] Postural Classification System [facility] Postural Classifications Posterior/Posterior Elbow Flexion Test 0 Comments Posture Comments ant tipped scap, IR scap, abd scap, torsos rot to R PT-OP-K Range of Motion Start: 06/18/23 13:30 Freq: Status: Active Protocol: Document 08/12/23 15:21 [facility] (Rec: 08/12/23 16:06 [facility] [id number]) Cervical Spine Range of Motion Cervical Spine Active Degrees Flexion 59 Extension 45 Rotation Left 51 Rotation Right 54 Lateral Flexion Left 42 Lateral Flexion Right 33 Comments pull some w/flex 80% tspine rot R; 95% L PT-OP-L Special Tests Start: 06/18/23 13:30 Freq: Status: Active Protocol: Document 06/29/23 14:34 [facility] (Rec: 06/29/23 16:06 [facility] [id number]) Special Tests Cervical Spine Special Tests cranial n testing Test Results WNL except w/tracking especially R- saccades noted VBA screen Comments 138/74; ausciltation of carotid and heart 4 pts wnl Traction Test Results neg Spurling's Test Comments neg Upper Limb Tension Test Test Results 70 deg passive abd L; 30 deg R Neural Special Tests- Upper Body Median Nerve Tension Test Results pos B Radial Nerve Tension Comments Pos B Ulnar Nerve Tension Comments pos R Other Special Tests Special Tests no biceps or brachioradialis response w/reflexes R; WNL triceps B, L slightly dec response w/brachioradialis reflex, WNL biceps PT-OP-M Strength Start: 06/18/23 13:30 Freq: Status: Active Protocol: Document 08/12/23 15:21 [facility] (Rec: 08/12/23 16:06 [facility] [id number]) Shoulder Strength Shoulder Manual Muscle Testing Right Flexion 4- Good- Extension 4+ Good+ Abduction (C5) 4- Good- External Rotation 3+ Fair+ Internal Rotation 4+ Good+ Left Flexion 5 Normal Extension 5 Normal Abduction (C5) 5 Normal External Rotation 5 Normal Internal Rotation 5 Normal Elbow/Forearm Strength Elbow and Forearm Manual Muscle Testing Right Flexion (C6) 3+ Fair+ Extension (C7) 4+ Good+ Pronation 4+ Good+ Supination 4 Good Comments 3+/5 biceps and brachialis Left Flexion (C6) 5 Normal Extension (C7) 5 Normal Pronation 5 Normal Supination 5 Normal Wrist Strength Wrist Manual Muscle Testing Right Flexion (C7) 5 Normal Extension (C6) 5 Normal Ulnar Deviation 5 Normal Radial Deviation 5 Normal Left Extension (C6) 5 Normal Ulnar Deviation 5 Normal Radial Deviation 5 Normal Hand Freight Car Repairer/Pinch Strength Hand Strength Right Comments 22kg, 21kg, 21kg PT-OP-Q Treatments Start: 06/18/23 13:30 Freq: Status: Active Protocol: Document 08/12/23 15:21 [facility] (Rec: 08/12/23 16:06 [facility] [id number]) Therapeutic Exercises Sidelying Exercises abd Sidelying Exercise Name post manual Side right Resistance 3#DB Reps/Minutes 8 Sitting Exercises isometrics Sitting Exercise Name MMT UEs and pipe fitter helper strength Side bilateral AROM Sitting Exercise Name cervical all planes Side bilateral curl Sitting Exercise Name biceps Side right Equipment Used lvl 2 Reps/Minutes 10 Standing Exercises Habd Standing Exercise Name habd w/flex Side bilateral Equipment Used lvl 1 Reps/Minutes 10 ER Standing Exercise Name B Side bilateral Equipment Used lvl 1 Reps/Minutes 8 Manual Therapy Treatment Soft Tissue Mobilization post Body Location R lats & sub scap & teres Mobilization Type Rolling,Sustained Pressure Comments w/flex pec Body Location R major/minor, subclavius Mobilization Type Rolling,Sustained Pressure, Other Intensity/Depth Moderate Body Position Supine ant Body Location R scalenes Mobilization Type Rolling,Other Intensity/Depth Moderate Body Position Supine Comments cues for breathwork manual pin and stretch x30 s Joint Mobilizations ribs Comments PA ribs 1-3 R FM; caudal R 1st PT-OP-T Assessment and Plan Start: 06/18/23 13:30 Freq: Status: Active Protocol: Document 08/12/23 15:21 [facility] (Rec: 08/12/23 16:06 [facility] [id number]) Physical Therapy Assessment Goals activity Prison Goal (LTG) Pt will be able to lift a gallon of milk onto counter w/ good mechanics 08/11-no change LTG Duration 09/21/23 ROM Short Term Goal (STG) Pt will have improved CS rotation to at least 52 deg B w/o inc pain to improve driving ability 07/13/23: stated having to turn trunk to look over shld driving. 08/11-mostly met STG Duration progressing 07/13/23 Prison Goal (LTG) Pt will have improved CS rotation to at least 60 deg B and ext to at least 50 deg w/o inc pain to improve driving ability and functional activity 08/11-improve ext LTG Duration 09/22/23 strength Short Term Goal (STG) Pt will be indep w/HEP STG Duration achieved advancinga s able Prison Goal (LTG) Pt will have improved strength to at least 4/5 for all RUE MMT to show improved strength to allow greater ease of function 08/11-improved overall LTG Duration 09/20 Assessment Summary Assessment Pt has made excellent progress w/PT with improved cervical ROM and RUE strength overall except no change w/elbow flex w/forearm in any position. She had improved R shoulder flex w/dec pinching post man therapy. now 1+/5 biceps reflex. She is improving with pain w/PT also. COnt PT to improve functional mboility Physical Therapy Plan Frequency and Duration Frequency of Treatment 1-2x/wk Duration of treatment (weeks) 12 Plan of Care Start Date 06/29/23 Plan of Care End Date 09/21/23 Next Visit Focus/Plan Next Note Type Treatment Note Next Visit Plan check in on exercsies; PNF for scap; cont to work on R shoulder and neck mobility
--- NOTE | 2023-08-26 17:19 | PT.OTN ---
Current Diagnoses Spondylosis without myelopathy or radiculopathy, cervical region (08/26/23) Spinal stenosis, cervical region (08/26/23) Cervical disc disorder at C5-C6 level with radiculopathy (08/26/23) Other cervical disc displacement, unspecified cervical region (08/26/23) Radiculopathy, cervical region (08/26/23) Muscle weakness (generalized) (08/26/23) Abnormal posture (08/26/23) Physical Therapy Treatment Note PT-OP-A Visit Information Start: 06/18/23 13:30 Freq: Status: Active Protocol: Document 08/26/23 15:30 [facility] (Rec: 08/26/23 17:19 [facility] [id number]) Out-Patient Physical Therapy Visit Information Visit Information Visit Type Treatment Note Visit Start Time 15:21 Visit Stop Time 16:01 Visit Number 11 Number of INDUSTRIAL CAFETERIA MANAGER Visits 0 PT-OP-B Current Condition Start: 06/18/23 13:30 Freq: Status: Active Protocol: Document 06/29/23 14:34 [facility] (Rec: 06/29/23 16:06 [facility] [id number]) Current Condition History of Current Condition Current Complaints R enck pain and RUE weakness History of Current Condition C3-6 ACDF performed in 2021. Pt has continued RUE weakness and neck pain. She still has post neck pain R side. ALONZO occasionally but not as much anymore. Sometimes in sleep, gets tingling in fingers. Did not do PT after surgery or any other treatment. Broke R elbow as a kid and feels like that casues shoulder to sit more fwd. Pt had RUE weakness since aroudn 2013 and got progressively worse over time . Treatment Goals Patient/Caregiver Goals improve strength; put a gallon of milk on counter w/good mechancis. Be able to curl PT-OP-C Subjective Start: 06/18/23 13:30 Freq: Status: Active Protocol: Document 08/26/23 15:30 [facility] (Rec: 08/26/23 17:19 [facility] [id number]) OP-PT Subjective Patient Comments Patient Comments Pt reports she walked mt [place] and also has been working out. Did try TRX 1x PT-OP-F Manual Assessment Start: 06/18/23 13:30 Freq: Status: Active Protocol: Document 06/29/23 14:34 [facility] (Rec: 06/29/23 16:06 [facility] [id number]) Manual Assessments Joint Mobility Assessment Joint Mobility Assessment R 1st rib elevated PT-OP-J Posture/Palpation/Skin Start: 06/18/23 13:30 Freq: Status: Active Protocol: Document 06/29/23 14:34 [facility] (Rec: 06/29/23 16:06 [facility] [id number]) Posture Evaluation [facility] Postural Classification System [facility] Postural Classifications Posterior/Posterior Elbow Flexion Test 0 Comments Posture Comments ant tipped scap, IR scap, abd scap, torsos rot to R PT-OP-K Range of Motion Start: 06/18/23 13:30 Freq: Status: Active Protocol: Document 08/12/23 15:21 [facility] (Rec: 08/12/23 16:06 [facility] [id number]) Cervical Spine Range of Motion Cervical Spine Active Degrees Flexion 59 Extension 45 Rotation Left 51 Rotation Right 54 Lateral Flexion Left 42 Lateral Flexion Right 33 Comments pull some w/flex 80% tspine rot R; 95% L PT-OP-L Special Tests Start: 06/18/23 13:30 Freq: Status: Active Protocol: Document 06/29/23 14:34 [facility] (Rec: 06/29/23 16:06 [facility] [id number]) Special Tests Cervical Spine Special Tests cranial n testing Test Results WNL except w/tracking especially R- saccades noted VBA screen Comments 138/74; ausciltation of carotid and heart 4 pts wnl Traction Test Results neg Spurling's Test Comments neg Upper Limb Tension Test Test Results 70 deg passive abd L; 30 deg R Neural Special Tests- Upper Body Median Nerve Tension Test Results pos B Radial Nerve Tension Comments Pos B Ulnar Nerve Tension Comments pos R Other Special Tests Special Tests no biceps or brachioradialis response w/reflexes R; WNL triceps B, L slightly dec response w/brachioradialis reflex, WNL biceps PT-OP-M Strength Start: 06/18/23 13:30 Freq: Status: Active Protocol: Document 08/12/23 15:21 [facility] (Rec: 08/12/23 16:06 [facility] [id number]) Shoulder Strength Shoulder Manual Muscle Testing Right Flexion 4- Good- Extension 4+ Good+ Abduction (C5) 4- Good- External Rotation 3+ Fair+ Internal Rotation 4+ Good+ Left Flexion 5 Normal Extension 5 Normal Abduction (C5) 5 Normal External Rotation 5 Normal Internal Rotation 5 Normal Elbow/Forearm Strength Elbow and Forearm Manual Muscle Testing Right Flexion (C6) 3+ Fair+ Extension (C7) 4+ Good+ Pronation 4+ Good+ Supination 4 Good Comments 3+/5 biceps and brachialis Left Flexion (C6) 5 Normal Extension (C7) 5 Normal Pronation 5 Normal Supination 5 Normal Wrist Strength Wrist Manual Muscle Testing Right Flexion (C7) 5 Normal Extension (C6) 5 Normal Ulnar Deviation 5 Normal Radial Deviation 5 Normal Left Extension (C6) 5 Normal Ulnar Deviation 5 Normal Radial Deviation 5 Normal Hand Safety Relief Valve Technician/Pinch Strength Hand Strength Right Comments 22kg, 21kg, 21kg PT-OP-Q Treatments Start: 06/18/23 13:30 Freq: Status: Active Protocol: Document 08/26/23 15:30 [facility] (Rec: 08/26/23 17:19 [facility] [id number]) Therapeutic Exercises Prone Exercises Ws Side bilateral Resistance 1lb Equipment Used tball Reps/Minutes 15 Is, Ts, Ys Side bilateral Equipment Used tball Reps/Minutes 5 ea Standing Exercises pivot prone Side bilateral Reps/Minutes 4 Manual Therapy Treatment Soft Tissue Mobilization sup Body Location R LS & UT Mobilization Type Rolling,Sustained Pressure, Trigger Point Release,Other Intensity/Depth Moderate Body Position supine/sidelying post Body Location R lat Mobilization Type Rolling,Sustained Pressure Comments w/scap dep ant Body Location R obliques, QL, ascending colon Mobilization Type Sustained Pressure Comments w/open book Joint Mobilizations ribs Comments AP rib 3 FM; external torsion rib 6 FM Thoracic Comments transverse L T3 FM PT-OP-T Assessment and Plan Start: 06/18/23 13:30 Freq: Status: Active Protocol: Document 08/26/23 15:30 [facility] (Rec: 08/26/23 17:19 [facility] [id number]) Physical Therapy Assessment Goals activity Derrickman Helper Goal (LTG) Pt will be able to lift a gallon of milk onto counter w/ good mechanics 08/11-no change LTG Duration 09/21/23 ROM Short Term Goal (STG) Pt will have improved CS rotation to at least 52 deg B w/o inc pain to improve driving ability 07/13/23: stated having to turn trunk to look over shld driving. 08/11-mostly met STG Duration progressing 07/13/23 Derrickman Helper Goal (LTG) Pt will have improved CS rotation to at least 60 deg B and ext to at least 50 deg w/o inc pain to improve driving ability and functional activity 08/11-improve ext LTG Duration 09/22/23 strength Short Term Goal (STG) Pt will be indep w/HEP STG Duration achieved advancinga s able Long-Term Goal (LTG) Pt will have improved strength to at least 4/5 for all RUE MMT to show improved strength to allow greater ease of function 08/11-improved overall LTG Duration 09/20 Assessment Summary Assessment Pt had imrpoved cervical rotation from about 50% B at the start to about 80% on R and 70% L after manual along w /improved R thoracic rot. Pt cont to fatigue and have weakness w/scap stability exercises. Physical Therapy Plan Frequency and Duration Frequency of Treatment 1-2x/wk Duration of treatment (weeks) 12 Plan of Care Start Date 06/29/23 Plan of Care End Date 09/21/23 Next Visit Focus/Plan Next Note Type Treatment Note Next Visit Plan check in on exercsies; PNF for scap; cont to work on R shoulder and neck mobility
--- NOTE | 2023-09-08 15:51 | PT.OTN ---
Current Diagnoses Spondylosis without myelopathy or radiculopathy, cervical region (09/08/23) Spinal stenosis, cervical region (09/08/23) Cervical disc disorder at C5-C6 level with radiculopathy (09/08/23) Other cervical disc displacement, unspecified cervical region (09/08/23) Radiculopathy, cervical region (09/08/23) Muscle weakness (generalized) (09/08/23) Abnormal posture (09/08/23) Physical Therapy Treatment Note PT-OP-A Visit Information Start: 06/18/23 13:30 Freq: Status: Active Protocol: Document 09/08/23 13:52 [facility] (Rec: 09/08/23 14:03 [facility] [id number]) Out-Patient Physical Therapy Visit Information Visit Information Visit Type Discharge Summary Visit Start Time 13:52 Visit Stop Time 14:32 Visit Number 12 Number of LOCK TECHNICIAN Visits 0 PT-OP-B Current Condition Start: 06/18/23 13:30 Freq: Status: Active Protocol: Document 06/29/23 14:34 [facility] (Rec: 06/29/23 16:06 [facility] [id number]) Current Condition History of Current Condition Current Complaints R enck pain and RUE weakness History of Current Condition C3-6 ACDF performed in 2021. Pt has continued RUE weakness and neck pain. She still has post neck pain R side. ALONZO occasionally but not as much anymore. Sometimes in sleep, gets tingling in fingers. Did not do PT after surgery or any other treatment. Broke R elbow as a kid and feels like that casues shoulder to sit more fwd. Pt had RUE weakness since aroudn 2013 and got progressively worse over time . Treatment Goals Patient/Caregiver Goals improve strength; put a gallon of milk on counter w/good mechancis. Be able to curl PT-OP-C Subjective Start: 06/18/23 13:30 Freq: Status: Active Protocol: Document 08/26/23 15:30 [facility] (Rec: 08/26/23 17:19 [facility] [id number]) OP-PT Subjective Patient Comments Patient Comments Pt reports she walked mt [place] and also has been working out. Did try TRX 1x PT-OP-F Manual Assessment Start: 06/18/23 13:30 Freq: Status: Active Protocol: Document 06/29/23 14:34 [facility] (Rec: 06/29/23 16:06 [facility] [id number]) Manual Assessments Joint Mobility Assessment Joint Mobility Assessment R 1st rib elevated PT-OP-J Posture/Palpation/Skin Start: 06/18/23 13:30 Freq: Status: Active Protocol: Document 06/29/23 14:34 [facility] (Rec: 06/29/23 16:06 [facility] [id number]) Posture Evaluation [facility] Postural Classification System [facility] Postural Classifications Posterior/Posterior Elbow Flexion Test 0 Comments Posture Comments ant tipped scap, IR scap, abd scap, torsos rot to R PT-OP-K Range of Motion Start: 06/18/23 13:30 Freq: Status: Active Protocol: Document 09/08/23 13:52 [facility] (Rec: 09/08/23 14:03 [facility] [id number]) Cervical Spine Range of Motion Cervical Spine Active Degrees Flexion 60 Extension 46 Rotation Left 54 Rotation Right 63 Lateral Flexion Left 42 Lateral Flexion Right 42 Comments pull some w/flex; some pain w /ext 90% tspine rot R; 95% L PT-OP-L Special Tests Start: 06/18/23 13:30 Freq: Status: Active Protocol: Document 06/29/23 14:34 [facility] (Rec: 06/29/23 16:06 [facility] [id number]) Special Tests Cervical Spine Special Tests cranial n testing Test Results WNL except w/tracking especially R- saccades noted VBA screen Comments 138/74; ausciltation of carotid and heart 4 pts wnl Traction Test Results neg Spurling's Test Comments neg Upper Limb Tension Test Test Results 70 deg passive abd L; 30 deg R Neural Special Tests- Upper Body Median Nerve Tension Test Results pos B Radial Nerve Tension Comments Pos B Ulnar Nerve Tension Comments pos R Other Special Tests Special Tests no biceps or brachioradialis response w/reflexes R; WNL triceps B, L slightly dec response w/brachioradialis reflex, WNL biceps PT-OP-M Strength Start: 06/18/23 13:30 Freq: Status: Active Protocol: Document 09/08/23 13:52 [facility] (Rec: 09/08/23 14:03 [facility] [id number]) Shoulder Strength Shoulder Manual Muscle Testing Right Flexion 4 Good Extension 5 Normal Abduction (C5) 4 Good External Rotation 3+ Fair+ Internal Rotation 4+ Good+ Left Flexion 5 Normal Extension 5 Normal Abduction (C5) 5 Normal External Rotation 5 Normal Internal Rotation 5 Normal Elbow/Forearm Strength Elbow and Forearm Manual Muscle Testing Right Flexion (C6) 4 Good Extension (C7) 4+ Good+ Pronation 4+ Good+ Supination 4 Good Comments 4/5 biceps and brachialis Left Flexion (C6) 5 Normal Extension (C7) 5 Normal Pronation 5 Normal Supination 5 Normal Wrist Strength Wrist Manual Muscle Testing Right Flexion (C7) 5 Normal Extension (C6) 5 Normal Ulnar Deviation 5 Normal Radial Deviation 5 Normal Left Flexion (C7) 5 Normal Extension (C6) 5 Normal Ulnar Deviation 5 Normal Radial Deviation 5 Normal Hand Glassware Maker Demonstrator/Pinch Strength Hand Strength Right Comments 22kg w/3 trials Left Comments 34kg, 32kg, 30kg PT-OP-Q Treatments Start: 06/18/23 13:30 Freq: Status: Active Protocol: Document 09/08/23 13:52 [facility] (Rec: 09/08/23 15:51 [facility] [id number]) Therapeutic Exercises Sitting Exercises isometrics Sitting Exercise Name MMT UEs and plant inspector strength Side bilateral AROM Sitting Exercise Name cervical all planes Side bilateral Manual Therapy Treatment Soft Tissue Mobilization sup Body Location R LS & UT, scalenes, SCm, SO Mobilization Type Rolling,Sustained Pressure, Trigger Point Release,Other Intensity/Depth Moderate Body Position supine/sidelying Comments w/rot & scap motion post Body Location R rhomboids Mobilization Type Rolling,Sustained Pressure Comments w/scap dep pec Body Location R major/minor, subclavius Mobilization Type Rolling,Sustained Pressure, Other Intensity/Depth Moderate Body Position Supine Joint Mobilizations Thoracic Comments T 1-3 R transverse FM PT-OP-T Assessment and Plan Start: 06/18/23 13:30 Freq: Status: Active Protocol: Document 09/08/23 13:52 [facility] (Rec: 09/08/23 14:03 [facility] [id number]) Physical Therapy Assessment Goals activity Dairy Lab Technician Goal (LTG) Pt will be able to lift a gallon of milk onto counter w/ good mechanics 08/11-no change LTG Duration no change ROM Short Term Goal (STG) Pt will have improved CS rotation to at least 52 deg B w/o inc pain to improve driving ability 07/13/23: stated having to turn trunk to look over shld driving. 08/11-mostly met STG Duration achieved 09/07 Fdc Goal (LTG) Pt will have improved CS rotation to at least 60 deg B and ext to at least 50 deg w/o inc pain to improve driving ability and functional activity 08/11-improve ext 09/07-much improved LTG Duration 09/22/23 strength Short Term Goal (STG) Pt will be indep w/HEP STG Duration achieved advancinga s able Fdc Goal (LTG) Pt will have improved strength to at least 4/5 for all RUE MMT to show improved strength to allow greater ease of function 08/11-improved overall 09/07-improved LTG Duration 09/20 Assessment Summary Assessment Pt has made excellent progress with pain, strength and ROM since start of PT. She cont to have RUE weakness and does have HEP to work on this which pt is confident about. She has made excellent progress w/ neck ROM and has noted improve ease w/turning in the car. At this time, pt is indep w/HEP and pain under control so DC to HEP. Physical Therapy Plan Discharge Physical Therapy Discharge Comments Goals mostly met and pt indep w/HEP
== END 2023-09-10 10:04 | disposition home or self-care (01) ==
LOC: PHYS 13:45
PROVIDERS: Family Provider Family Medicine; PCP Family Medicine; Referring Provider Physical Medicine & Rehabilitation; Visit Provider Physical Medicine & Rehabilitation
DX: M47.812 Spondylosis without myelopathy or radiculopathy, cervical region (principal); M50.122 Cervical disc disorder at C5-C6 level with radiculopathy; M48.02 Spinal stenosis, cervical region; M50.20 Other cervical disc displacement, unspecified cervical region; M62.81 Muscle weakness (generalized); R29.3 Abnormal posture
CPT/HCPCS: 97110; 97112; 97140; 97162; 97535

== ENCOUNTER → 2024-01-05 14:53 | Outpatient (CLI) | payer OTHER, SELFPAY ==
--- NOTE | 2024-01-05 | DI.MG.S_ITS ---
BILATERAL DIGITAL SCREENING MAMMOGRAM 3D/2D WITH CAD: 01/05/2024 CLINICAL: Routine screening. Comparison is made to exams dated: 12/25/2022 mammogram, 04/03/2021 mammogram, and 03/28/2020 mammogram - [facility]. There are scattered areas of fibroglandular density (category b / 25%-50% glandular tissue). Current study was also evaluated with a Computer Aided Detection (CAD) system. No significant masses, calcifications, or other findings are seen in either breast. There has been no significant interval change. IMPRESSION: NEGATIVE There is no mammographic evidence of malignancy. A 1 year screening mammogram is recommended. Based on the Tyrer Cuzick model (a risk assessment model) the patient's lifetime risk is 9.8% and her 10 year risk is 3.4%. According to the ACR, ACS, and NCCN guidelines, an annual breast MRI exam along with mammogram is recommended if the patient's lifetime risk is 20% or greater. This exam was interpreted at Station ID: [id number]. NOTE: For mammograms, a report in lay terms will be sent to the patient. Approximately 15% of breast malignancies will not be visualized mammographically. In the management of a palpable breast mass, a negative mammogram must not discourage biopsy of a clinically suspicious lesion. Electronically Signed By: Vega hough/ana:01/06/2024 08:04:21 letter sent: Normal Exam ACR BI-RADS Category 1: Negative
== END ==
PROVIDERS: Family Provider Family Medicine; PCP Family Medicine; Referring Provider Family Medicine; Visit Provider Family Medicine
DX: Z12.31 Encounter for screening mammogram for malignant neoplasm of breast (principal)
CPT/HCPCS: 77063; 77067

== ENCOUNTER → 2024-01-25 | Outpatient (CLI) | payer OTHER, SELFPAY | PROVIDERS: Family Provider Family Medicine; PCP Family Medicine; Referring Provider Internal Medicine; Visit Provider Internal Medicine | DX: Z23 Encounter for immunization (principal) | CPT/HCPCS: 90471; 90656 ==

== ENCOUNTER → 2024-07-04 07:38 | Outpatient (CLI) | payer OTHER, SELFPAY ==
[2024-07-04 08:11] LABS: Add Manual Diff / Slide Review NO; Basophils Absolute Auto 100 /uL (0-100); Eosinophils Absolute Auto 200 /uL (0-450); Eosinophils Percent Auto 2.9 % (2-4); Hematocrit 39.9 % (36-46); Hemoglobin 13.4 g/dL (12.0-16.0); Lymphocytes Absolute Auto 2400 /uL (1100-4500); Lymphocytes Percent Auto 30.6 % (25-40); Mean Corpuscular HGB Conc 33.6 % (30-36); Mean Corpuscular Hemoglobin 31.5 PG (26-34); Mean Corpuscular Volume 93.8 fL (80-100); Monocytes Absolute Auto 600 /uL (0-900); Monocytes Percent Auto 7.7 % (3-14); Neutrophils Absolute Auto 4400 /uL (1500-7000); Neutrophils Percent Auto 57.8 % (50-75); Platelet Count 345 X10^3/uL (150-400); Red Blood Cell Count 4.25 X10^6/uL (4.0-5.2); Red Cell Distribution Width 13.2 % (11.6-14.8); White Blood Cell Count 7.7 X10^3/uL (4.5-11.0)
[2024-07-04 08:21] LABS: Hemoglobin A1C% w Est Avg Glu 5.1 % (4.0-6.0)
[2024-07-04 08:29] LABS: Alanine Aminotransferase 22 IU/L (<35); Albumin 4.4 g/dL (3.5-5.0); Albumin Globulin Ratio 1.2 (1.0-2.8); Alkaline Phosphatase 86 U/L (38-126); Aspartate Aminotransferase 27 IU/L (14-36); BUN Creatinine Ratio 20.2 (6-22); Bilirubin Total 0.4 mg/dL (0.2-1.3); Blood Urea Nitrogen 18 mg/dL (7-17); Calcium 9.3 mg/dL (8.4-10.2); Carbon Dioxide 25 mmol/L (22-32); Chloride 107 mmol/L (98-107); Estimated Glomerular Filt Rate > 60 mL/min (>60); Globulin 3.6 g/dL (1.7-4.1); Glucose 97 mg/dL (70-100); HEMOLYSIS < 15 (0-50); Potassium 3.9 mmol/L (3.4-5.1); Sodium 141 mmol/L (137-145)
[2024-07-04 08:46] LABS: Free T3, Triiodothyronine Free 4.51 pg/mL (2.77-5.27); Free T4, Direct Thyroxine 1.27 ng/dL (0.78-2.19)
[2024-07-04 08:47] LABS: Progesterone, Total 2.98 ng/mL; Vitamin D 25 Hydroxy (D3) 23.9 ng/mL (30.0-100.0)
[2024-07-04 09:00] LABS: Thyroid Stimulating Hormone 1.68 uIU/mL (0.47-4.68)
[2024-07-04 09:02] LABS: Estradiol, Total 66.8 pg/mL
[2024-07-04 09:04] LABS: Ferritin 51 ng/mL (11-264)
[2024-07-04 09:20] LABS: Vitamin B12 821 pg/mL (239-931)
[2024-07-15 08:41] LABS: Percent Free Testosterone 1.32 % (0.50-2.80); Testosterone Free 0.18 ng/dL (0.10-0.85); Testosterone Total 13.6 ng/dL (.)
== END ==
PROVIDERS: Family Provider Family Medicine; PCP Family Medicine; Referring Provider Family Medicine; Visit Provider Family Medicine
DX: R41.89 Other symptoms and signs involving cognitive functions and awareness (principal); R53.82 Chronic fatigue, unspecified
CPT/HCPCS: 36415; 80053; 82306; 82607; 82670; 82728; 83036; 84144; 84402; 84403; 84439; 84443; 84481; 85025

== ENCOUNTER → 2024-08-08 16:12 | Outpatient (CLI) | payer OTHER, SELFPAY ==
[2024-08-08 17:02] LABS: Add Manual Diff / Slide Review NO; Basophils Absolute Auto 100 /uL (0-100); Basophils Percent Auto 0.7 % (0-2); Eosinophils Absolute Auto 300 /uL (0-450); Eosinophils Percent Auto 2.7 % (2-4); Hemoglobin 12.7 g/dL (12.0-16.0); Lymphocytes Absolute Auto 3100 /uL (1100-4500); Lymphocytes Percent Auto 31.7 % (25-40); Mean Corpuscular HGB Conc 34.3 % (30-36); Mean Corpuscular Hemoglobin 32.1 PG (26-34); Mean Corpuscular Volume 93.6 fL (80-100); Monocytes Absolute Auto 700 /uL (0-900); Monocytes Percent Auto 7.6 % (3-14); Neutrophils Absolute Auto 5600 /uL (1500-7000); Neutrophils Percent Auto 57.3 % (50-75); Platelet Count 344 X10^3/uL (150-400); Red Blood Cell Count 3.96 X10^6/uL (4.0-5.2); Red Cell Distribution Width 13.3 % (11.6-14.8); White Blood Cell Count 9.7 X10^3/uL (4.5-11.0)
[2024-08-08 17:24] LABS: Alanine Aminotransferase 106 IU/L (<35); Albumin 4.3 g/dL (3.5-5.0); Albumin Globulin Ratio 1.3 (1.0-2.8); Alkaline Phosphatase 119 U/L (38-126); Aspartate Aminotransferase 42 IU/L (14-36); BUN Creatinine Ratio 24.5 (6-22); Bilirubin Total 0.2 mg/dL (0.2-1.3); Blood Urea Nitrogen 25 mg/dL (7-17); Calcium 9.8 mg/dL (8.4-10.2); Carbon Dioxide 27 mmol/L (22-32); Chloride 105 mmol/L (98-107); Estimated Glomerular Filt Rate > 60 mL/min (>60); Globulin 3.3 g/dL (1.7-4.1); Glucose 97 mg/dL (70-99); HEMOLYSIS < 15 (0-50); Lipase 101 U/L (23-300); Potassium 4.2 mmol/L (3.4-5.1); Sodium 139 mmol/L (137-145); Total Protein 7.6 g/dL (6.3-8.2)
== END ==
PROVIDERS: Family Provider Family Medicine; PCP Family Medicine; Referring Provider Family Medicine; Visit Provider Family Medicine
DX: R10.11 Right upper quadrant pain (principal)
CPT/HCPCS: 36415; 80053; 83690; 85025

== ENCOUNTER → 2024-08-17 07:31 | Outpatient (CLI) | payer OTHER, SELFPAY ==
--- NOTE | 2024-08-17 07:45 | DI.US.S_ITS ---
PROCEDURE: US ABDOMEN LIMITED INDICATIONS: RUQ PAIN TECHNIQUE: Real-time scanning was performed of the abdominal and retroperitoneal organs, with image documentation. COMPARISON: None. FINDINGS: Liver: Liver is normal in size and homogeneous in echotexture. Gallbladder: Multiple mobile foci increased echogenicity are present the largest measuring 5 mm. No wall thickening. No pericholecystic edema. Negative sonographic Scales's sign. Biliary ducts: Intrahepatic bile ducts are non-dilated. Extrahepatic bile duct caliber measures 3.0 mm. Normal is 6-7 mm or less in diameter, or 10 mm or less post-cholecystectomy. Pancreas: Visualized portions of the pancreas are sonographically normal. Miscellaneous: No free abdominal fluid. IMPRESSION: Cholelithiasis without imaging appearance of cholecystitis. Dictated by: Jessica Nolasco M.D. on 08/17/2024 at 14:32 Approved by: Jessica Nolasco M.D. on 08/17/2024 at 14:32
== END ==
PROVIDERS: Family Provider Family Medicine; PCP Family Medicine; Referring Provider Family Medicine; Visit Provider Family Medicine
DX: R10.11 Right upper quadrant pain (principal); K80.20 Calculus of gallbladder without cholecystitis without obstruction
CPT/HCPCS: 76705

== ENCOUNTER → 2024-11-01 08:10 | Outpatient (CLI) | payer OTHER, SELFPAY ==
[2024-11-01 09:48] LABS: Add Manual Diff / Slide Review NO; Hematocrit 38.7 % (36-46); Hemoglobin 13.3 g/dL (12.0-16.0); Lymphocytes Absolute Auto 2300 /uL (1100-4500); Mean Corpuscular HGB Conc 34.3 % (30-36); Mean Corpuscular Hemoglobin 32.3 PG (26-34); Mean Corpuscular Volume 94.0 fL (80-100); Platelet Count 301 X10^3/uL (150-400)
[2024-11-01 10:02] LABS: Hemoglobin A1C% w Est Avg Glu 5.4 % (4.0-6.0)
[2024-11-01 10:32] LABS: Alanine Aminotransferase 18 IU/L (<35); Albumin 4.3 g/dL (3.5-5.0); Albumin Globulin Ratio 1.1 (1.0-2.8); Alkaline Phosphatase 82 U/L (38-126); Blood Urea Nitrogen 18 mg/dL (7-17); Calcium 8.6 mg/dL (8.4-10.2); Carbon Dioxide 23 mmol/L (22-32); Chloride 108 mmol/L (98-107); Estimated Glomerular Filt Rate > 60 mL/min (>60); Globulin 3.8 g/dL (1.7-4.1); Glucose 84 mg/dL (70-99); HEMOLYSIS < 15 (0-50); Magnesium 2.1 mg/dL (1.6-2.3); Potassium 4.2 mmol/L (3.4-5.1); Sodium 138 mmol/L (137-145); Total Protein 8.1 g/dL (6.3-8.2)
[2024-11-01 10:49] LABS: Progesterone, Total 9.59 ng/mL; Vitamin D 25 Hydroxy (D3) 47.9 ng/mL (30.0-100.0)
[2024-11-01 10:57] LABS: Cortisol AM (Before 10AM) 6.34 ug/dL (4.46-22.7)
[2024-11-01 11:04] LABS: Estradiol, Total 92.6 pg/mL
[2024-11-01 11:18] LABS: Vitamin B12 827 pg/mL (239-931)
[2024-11-01 23:38] LABS: Cholesterol,Total 146 mg/dL (100-199); HDL Cholesterol 54 mg/dL (>39); LDL Cholesterol Cal 76 mg/dL (0-99); Triglycerides 82 mg/dL (0-149)
[2024-11-02 03:40] LABS: CRP, High Sensitivity 2.19 mg/L (0.00-3.00)
[2024-11-02 19:10] LABS: Anti Thyroglobulin Antibody <1.0 IU/mL (0.0-0.9)
[2024-11-03 07:41] LABS: Insulin Level Total 12.0 uIU/mL (2.6-24.9)
[2024-11-04 03:08] LABS: Testosterone, Free 2.1 pg/mL (0.0-4.2)
== END ==
PROVIDERS: Family Provider Family Medicine; PCP Family Medicine; Referring Provider Specialist; Visit Provider Specialist
DX: E06.3 Autoimmune thyroiditis (principal); E78.2 Mixed hyperlipidemia; G47.33 Obstructive sleep apnea (adult) (pediatric); N40.0 Benign prostatic hyperplasia without lower urinary tract symptoms; N95.9 Unspecified menopausal and perimenopausal disorder; R53.83 Other fatigue; R68.82 Decreased libido; R73.09 Other abnormal glucose; Z51.81 Encounter for therapeutic drug level monitoring
CPT/HCPCS: 80053; 80061; 82306; 82533; 82607; 82670; 83036; 83525; 83735; 84144; 84402; 84403; 85025; 86140; 86376; 86800